=== PATIENT | male | born 1950 | race Caucasian/White ===

== ENCOUNTER 2016-09-18 16:14 | Inpatient (IN) | payer OTHER ==
[2016-09-18] MEDS ORDERED: ALBUTEROL NEBULIZED 2.5 MG/3 ML INHALATION STA (16:40)
[2016-09-18] MEDS ORDERED: methylPREDNISolone SOD SUCCI 125 MG/2 ML VIAL IV STA (16:40)
[2016-09-18] MEDS ORDERED: SODIUM CHLORIDE 0.9% 1,000 ML IV STA ×3 (16:40→20:23)
[2016-09-18] MEDS ORDERED: IBUPROFEN IV 600 MG in SODIUM CHLORIDE 0.9% 250 ML IV STA (16:41)
[2016-09-18] MEDS ORDERED: MORPHINE SULFATE 2 MG/ML SYRINGE IVP ONE (16:41)
--- NOTE | 2016-09-18 16:45 | ED ---
General Adult HPI - General Source: patient, family, RN notes reviewed Mode of arrival: wheelchair Limitations: no limitations <Cricket Ferro - Last Filed: 09/18/16 19:41> <Cricket Almeida - Last Filed: 09/18/16 20:56> - General Chief complaint: Shortness of Breath Stated complaint: RAMONE Time Seen by Provider: 09/18/16 16:15 - History of Present Illness Initial comments: This is a 65-year-old male who presents emergency department with past medical history significant for smoking. Patient has a possible history of COPD but he never follows up with the physician and states he has been given albuterol inhalers at home but when he runs out he never goes back gets more. Patient comes in today because he had difficulty breathing of the last few months and has been getting progressively worse. Patient states she is coughing so much lately and coughing up sputum that his ribs are hurting on both sides in the lower lateral aspect. Patient denies any fever or chills. Patient denies any anterior chest pain. Patient denies any palpitations. Patient states a few months ago he did cough up some blood but he hasn't coughed up any since. Patient denies any abdominal pain. Patient denies any nausea vomiting or diarrhea. Patient denies any recent injury or trauma. (Cricket Ferro) - Related Data Home Medications Medication Instructions Recorded Confirmed Albuterol Inhaler [Ventolin Hfa 2 puff INHALATION RT-Q4H PRN 09/18/16 09/18/16 Inhaler] Ipratropium [place] [Atrovent Hfa] 2 puff INHALATION RT-QID 09/18/16 09/18/16 Allergies Allergy/AdvReac Type Severity Reaction Status Date / Time No Known Allergies Allergy Verified 09/18/16 17:04 Review of Systems ROS Other: All systems not noted in ROS Statement are negative. <Cricket Ferro - Last Filed: 09/18/16 19:41> ROS Other: All systems not noted in ROS Statement are negative. <Cricket Almeida - Last Filed: 09/18/16 20:56> ROS Statement: Those systems with pertinent positive or pertinent negative responses have been documented in the HPI. Past Medical History Past Medical History: COPD History of Any Multi-Drug Resistant Organisms: None Reported Past Surgical History: No Surgical Hx Reported Past Anesthesia/Blood Transfusion Reactions: No Reported Reaction Past Psychological History: No Psychological Hx Reported Smoking Status: Current every day smoker Past Alcohol Use History: Daily Past Drug Use History: None Reported - Past Family History Father Family Medical History: Myocardial Infarction ([place]) <Cricket Ferro - Last Filed: 09/18/16 19:41> General Exam Limitations: no limitations <Cricket Ferro - Last Filed: 09/18/16 19:41> General appearance: alert, in no apparent distress, anxious Head exam: Present: atraumatic, normocephalic, normal inspection Eye exam: Present: normal appearance, PERRL, EOMI. Absent: scleral icterus, conjunctival injection, periorbital swelling ENT exam: Present: normal exam, mucous membranes moist Neck exam: Present: normal inspection. Absent: tenderness, meningismus, lymphadenopathy Respiratory exam: Present: normal lung sounds bilaterally, respiratory distress , decreased breath sounds. Absent: wheezes, rales, rhonchi, stridor Cardiovascular Exam: Present: regular rate, normal rhythm, normal heart sounds. Absent: systolic murmur, diastolic murmur, rubs, gallop, clicks GI/Abdominal exam: Present: soft, normal bowel sounds. Absent: distended, tenderness, guarding, rebound, rigid Extremities exam: Present: normal inspection, full ROM, normal capillary refill. Absent: tenderness, pedal edema, joint swelling, calf tenderness Back exam: Present: normal inspection Neurological exam: Present: alert, oriented X3, CN II-XII intact Psychiatric exam: Present: normal affect, normal mood Skin exam: Present: warm, dry, intact, normal color. Absent: rash <Cricket Almeida - Last Filed: 09/18/16 20:56> - General Exam Comments Initial Comments: GENERAL: Patient is well-developed and well-nourished. Patient is nontoxic and well- hydrated and is in mild distress. ENT: Neck is soft and supple. No significant lymphadenopathy is noted. Oropharynx is clear. Moist mucous membranes. Neck has full range of motion without eliciting any pain. EYES: The sclera were anicteric and conjunctiva were pink and moist. Extraocular movements were intact and pupils were equal round and reactive to light. Eyelids were unremarkable. PULMONARY: Diminished breath sounds throughout and wheezing throughout CARDIOVASCULAR: There is a regular rate and rhythm without any murmurs gallops or rubs. ABDOMEN: Soft and nontender with normal bowel sounds. No palpable organomegaly was noted. There is no palpable pulsatile mass. SKIN: Skin is clear with no lesions or rashes and otherwise unremarkable. NEUROLOGIC: Patient is alert and oriented x3. Cranial nerves II through XII are grossly intact. Motor and sensory are also intact. Normal speech, volume and content. Symmetrical smile. MUSCULOSKELETAL: Normal extremities with adequate strength and full range of motion. No lower extremity swelling or edema. No calf tenderness. LYMPHATICS: No significant lymphadenopathy is noted PSYCHIATRIC: Normal psychiatric evaluation. (Cricket Ferro) Course <Cricket Ferro - Last Filed: 09/18/16 19:41> <Cricket Almeida - Last Filed: 09/18/16 20:56> Vital Signs 09/18/16 09/18/16 09/18/16 16:17 16:59 17:06 Temperature 97.8 F Pulse Rate 105 H 90 Respiratory 24 28 H Rate Blood Pressure 115/73 O2 Sat by Pulse 89 L Oximetry 09/18/16 09/18/16 09/18/16 17:12 19:29 20:09 Temperature 97.8 F Pulse Rate 100 95 87 Respiratory 20 22 20 Rate Blood Pressure 131/89 110/66 101/67 O2 Sat by Pulse 94 L 96 Oximetry - Reevaluation(s) Reevaluation #1: 09/18/16 20:55 Patient with mild improvement of breathing treatments (Cricket Almeida) Medical Decision Making - Lab Data Result diagrams: 09/18/16 16:45 09/18/16 16:45 <Cricket Ferro - Last Filed: 09/18/16 19:41> - Lab Data Result diagrams: 09/18/16 16:45 09/18/16 16:45 <Cricket Almeida - Last Filed: 09/18/16 20:56> - Medical Decision Making EKG shows normal sinus rhythm at 93 bpm WA interval is on a 54 QRS is 104 QT interval 368 QTC is 457 per patient's EKG shows no ST segment elevation or depression or T wave abnormalities are noted. Dr. Almeida date of the care of this patient at 7:30. (Cricket Ferro) 60 formality ER for evaluation, patient coming in with shortness of breath, patient found a fungal pneumonia with cavitary lesion, which she has not antibiotics with antifungal, patient will be admitted for further evaluation and treatment of cardio stress test. Patient hypoxic improvement with breathing treatments. (Cricket Almeida) - Lab Data Lab Results 09/18/16 09/18/16 09/18/16 Range/Units 16:45 16:45 16:45 WBC 11.5 H (3.8-10.6) k/uL RBC 5.41 (4.30-5.90) m/uL Hgb 17.2 (13.0-17.5) gm/dL Hct 49.4 (39.0-53.0) % MCV 91.3 (80.0-100.0) fL MCH 31.7 (25.0-35.0) pg MCHC 34.7 (31.0-37.0) g/dL RDW 13.0 (11.5-15.5) % Plt Count 281 (150-450) k/uL Neutrophils % 82 % Lymphocytes % 10 % Monocytes % 7 % Eosinophils % 1 % Basophils % 1 % Neutrophils # 9.4 H (1.3-7.7) k/uL Lymphocytes # 1.1 (1.0-4.8) k/uL Monocytes # 0.8 (0-1.0) k/uL Eosinophils # 0.1 (0-0.7) k/uL Basophils # 0.1 (0-0.2) k/uL PT (9.0-12.0) sec INR (<1.1) APTT (22.0-30.0) sec D-Dimer (<0.60) mg/L FEU Sodium 131 L (137-145) mmol/L Potassium 4.5 (3.5-5.1) mmol/L Chloride 91 L (98-107) mmol/L Carbon Dioxide 25 (22-30) mmol/L Anion Gap 15 mmol/L BUN 5 L (9-20) mg/dL Creatinine 0.50 L (0.66-1.25) mg/dL Est GFR (MDRD) Af Amer >60 (>60 ml/min/1.73 sqM) Est GFR (MDRD) Non-Af >60 (>60 ml/min/1.73 sqM) Glucose 118 H (74-99) mg/dL Plasma Lactic Acid Gurpreet (0.7-2.0) mmol/L Calcium 9.5 (8.4-10.2) mg/dL Magnesium 1.9 (1.6-2.3) mg/dL Total Bilirubin 1.0 (0.2-1.3) mg/dL AST 38 (17-59) U/L ALT 33 (21-72) U/L Alkaline Phosphatase 170 H (38-126) U/L Total Creatine Kinase 82 (55-170) U/L CK-MB (CK-2) 6.8 H* (0.0-2.4) ng/mL CK-MB (CK-2) Rel Index 8.3 Troponin I <0.012 (0.000-0.034) ng/mL NT-Pro-B Natriuret Pep pg/mL Total Protein 7.8 (6.3-8.2) g/dL Albumin 3.7 (3.5-5.0) g/dL 09/18/16 09/18/16 09/18/16 Range/Units 16:45 16:45 16:45 WBC (3.8-10.6) k/uL RBC (4.30-5.90) m/uL Hgb (13.0-17.5) gm/dL Hct (39.0-53.0) % MCV (80.0-100.0) fL MCH (25.0-35.0) pg MCHC (31.0-37.0) g/dL RDW (11.5-15.5) % Plt Count (150-450) k/uL Neutrophils % % Lymphocytes % % Monocytes % % Eosinophils % % Basophils % % Neutrophils # (1.3-7.7) k/uL Lymphocytes # (1.0-4.8) k/uL Monocytes # (0-1.0) k/uL Eosinophils # (0-0.7) k/uL Basophils # (0-0.2) k/uL PT 11.7 (9.0-12.0) sec INR 1.2 (<1.1) APTT 25.8 (22.0-30.0) sec D-Dimer 5.10 H (<0.60) mg/L FEU Sodium (137-145) mmol/L Potassium (3.5-5.1) mmol/L Chloride (98-107) mmol/L Carbon Dioxide (22-30) mmol/L Anion Gap mmol/L BUN (9-20) mg/dL Creatinine (0.66-1.25) mg/dL Est GFR (MDRD) Af Amer (>60 ml/min/1.73 sqM) Est GFR (MDRD) Non-Af (>60 ml/min/1.73 sqM) Glucose (74-99) mg/dL Plasma Lactic Acid Gurpreet 2.1 H (0.7-2.0) mmol/L Calcium (8.4-10.2) mg/dL Magnesium (1.6-2.3) mg/dL Total Bilirubin (0.2-1.3) mg/dL AST (17-59) U/L ALT (21-72) U/L Alkaline Phosphatase (38-126) U/L Total Creatine Kinase (55-170) U/L CK-MB (CK-2) (0.0-2.4) ng/mL CK-MB (CK-2) Rel Index Troponin I (0.000-0.034) ng/mL NT-Pro-B Natriuret Pep 391 pg/mL Total Protein (6.3-8.2) g/dL Albumin (3.5-5.0) g/dL Critical Care Time Critical Care Time: Yes Total Critical Care Time: 31 <Cricket Almeida - Last Filed: 09/18/16 20:56> Disposition <Cricket Ferro - Last Filed: 09/18/16 19:41> <Cricket Almeida - Last Filed: 09/18/16 20:56> Clinical Impression: COPD (chronic obstructive pulmonary disease), Acute exacerbation of chronic obstructive airways disease, Fungal pneumonia, Cavitary pneumonia, Bilateral pleural effusion, Hypoxia Disposition: ADMITTED IP TO THIS HOSP Condition: Serious Referrals: None,Stated [Primary Care Provider] - 1-2 days
[2016-09-18 17:10] LABS: Basophils # (A) 0.1 k/uL (0-0.2); Basophils % (A) 1 %; CH 32.6; CHCM 35.9; Eosinophils # (A) 0.1 k/uL (0-0.7); Eosinophils % (A) 1 %; HCT 49.4 % (39.0-53.0); HDW 2.79; HGB 17.2 gm/dL (13.0-17.5); Luc # (Auto) 0.09; Luc % (Auto) 1; Lymphocytes # (A) 1.1 k/uL (1.0-4.8); Lymphocytes % (A) 10 %; MCH 31.7 pg (25.0-35.0); MCHC 34.7 g/dL (31.0-37.0); MCV 91.3 fL (80.0-100.0); Mean Platelet Volume 7.8; Monocytes # (A) 0.8 k/uL (0-1.0); Monocytes % (A) 7 %; Neutrophils # (A) 9.4 k/uL (1.3-7.7); Neutrophils % (A) 82 %; RBC 5.41 m/uL (4.30-5.90); WBC 11.5 k/uL (3.8-10.6); WBC (Perox) 12.04
[2016-09-18 17:28] LABS: ALT 33 U/L (21-72); AST 38 U/L (17-59); Alkaline Phosphatase 170 U/L (38-126); Anion Gap 15 mmol/L; Blood Urea Nitrogen 5 mg/dL (9-20); Calcium 9.5 mg/dL (8.4-10.2); Carbon Dioxide 25 mmol/L (22-30); Chloride 91 mmol/L (98-107); Glucose 118 mg/dL (74-99); INR 1.2 (<1.1); Magnesium 1.9 mg/dL (1.6-2.3); Non-African American GFR(MDRD) >60 (>60 ml/min/1.73 sqM); Partial Thromboplastin Time 25.8 sec (22.0-30.0); Potassium 4.5 mmol/L (3.5-5.1); Prothrombin Time 11.7 sec (9.0-12.0); Sodium 131 mmol/L (137-145); Total Protein 7.8 g/dL (6.3-8.2)
[2016-09-18 17:31] LABS: Creatine Kinase 82 U/L (55-170)
[2016-09-18 17:44] LABS: Troponin I <0.012 ng/mL (0.000-0.034)
[2016-09-18 17:47] LABS: Creatine Kinase MB 6.8 ng/mL (0.0-2.4)
[2016-09-18] MEDS ORDERED: RX INFO: IV CONTRAST WAS GIVEN 1 EACH MISC MISCELLANE PRN (18:29)
--- NOTE | 2016-09-18 18:42 | XR ---
EXAMINATION TYPE: XR chest 2V DATE OF EXAM: 09/18/2016 6:22 PM COMPARISON: May 13, 2014 HISTORY: Increasing dyspnea for the past month with history COPD TECHNIQUE: Frontal and lateral views of the chest are obtained. FINDINGS: There is heterogeneous hyperinflation, marked in degree. The lateral view shows evidence of a mass injecting anteriorly. On the frontal view laterally in the upper lung zone there is focal pleural thickening with streaking of density toward the right suprahilar position. In addition, the right hemidiaphragm is prominently elevated. All these changes are new since the prior study. IMPRESSION: MULTIFOCAL PLEURAL PARENCHYMAL ABNORMALITIES FOR WHICH FURTHER CATHETERIZATION WITH CT IS RECOMMENDED.
--- NOTE | 2016-09-18 20:11 | CT ---
EXAMINATION TYPE: CT chest angio for PE DATE OF EXAM: 09/18/2016 7:21 PM COMPARISON: CT July 18, 2015 HISTORY: Difficulty breathing. CT DLP: 697.00 mGycm.Automated exposure control for dose reduction was used. CONTRAST: CT Chest for pulmonary embolism performed with with IV Contrast, patient injected with 76 m L of Omnipaque 350. FINDINGS: Right: The hernández finding is a large right pleural effusion which appears to exert mass effect upon the right lung base. There is associated atelectasis of the right middle lobe and most of the right lower lobe. Within the right upper lobe is a 4 cm rounded cavitary lesion posteriorly, with a 2.5 cm depen dent soft tissue ovoid ball. There are baseline bulla and bleb formation, and widespread hyperinflati on, consistent with chronic obstructive pulmonary disease. Left: On the left there is a smaller pleural effusion which also appears to be exerting mass effect u linda the left lung base. There is dense consolidation throughout the posterior lateral left lower lobe . There is partial atelectasis and partial consolidation within anterior left upper lobe. There are b aseline bulla and bleb formation, and widespread hyperinflation, consistent with chronic obstructive pulmonary disease. Mediastinum: There is no pulmonary embolism. The pulmonary arterial tree is well opacified and widely patent. The thoracic aorta is unremarkable. There is no pericardial effusion. No cardiomegaly. The airways are clear. There are no focal skeletal lesions, and th visualized subdiaphragmatic structures are unremarkable. IMPRESSION: 1. BILATERAL PROMINENT PLEURAL EFFUSIONS, MUCH GREATER ON THE RIGHT, WITH LEFT LOWER LOBE CONSOLIDATI ON AND RIGHT LOWER LOBE, RIGHT MIDDLE LOBE AND LEFT UPPER LOBE ATELECTASIS. 2. RIGHT UPPER LOBE CAVITARY LESION WITH DEPENDENT NODULE, SUGGESTS FUNGAL ETIOLOGY.
[2016-09-18] MEDS ORDERED: IV VANCOMYCIN PER PHARMACY 1 EACH MISC MISCELLANE PRN (20:23)
[2016-09-18] MEDS ORDERED: SODIUM CHLORIDE 0.9% 500 ML IV STA (20:23)
[2016-09-18] MEDS ORDERED: PIPERACILLIN-TAZOBACTAM 3.375 GM in DEXTROSE/WATER 1 50ML.BAG IVPB STA (20:23)
[2016-09-18] MEDS ORDERED: VANCOMYCIN 1,500 MG in SODIUM CHLORIDE 0.9% 250 ML IVPB STA (20:24)
[2016-09-18] MEDS ORDERED: IPRATROPIUM-ALBUTEROL 3 ML NEB INHALATION STA (20:55)
[2016-09-18] MEDS ORDERED: PNEUMONIA PROTOCOL UTILIZED 1 EACH MISC PO PRN (20:57)
[2016-09-19] MEDS: SODIUM CHLORIDE 0.9% 1,000 ML IV SCH ×5 (02:13→17:27)
[2016-09-19 02:43] LABS: Glucose,Whole Blood 182 mg/dL (75-99)
[2016-09-19] MEDS: LEVOFLOXACIN 750MG-D5W PMX 750 MG in DEXTROSE/WATER 1 150ML.BAG IVPB SCH (02:55)
[2016-09-19 04:35] LABS: Basophils % (A) 0 %; CH 32.5; CHCM 34.8; Eosinophils % (A) 0 %; HCT 40.4 % (39.0-53.0); HDW 2.77; Luc # (Auto) 0.04; Luc % (Auto) 1; Lymphocytes # (A) 0.5 k/uL (1.0-4.8); Lymphocytes % (A) 7 %; MCH 31.5 pg (25.0-35.0); MCHC 33.5 g/dL (31.0-37.0); Mean Platelet Volume 7.7; Monocytes # (A) 0.3 k/uL (0-1.0); Monocytes % (A) 4 %; Neutrophils # (A) 6.5 k/uL (1.3-7.7); Neutrophils % (A) 88 %; RDW 13.3 % (11.5-15.5); WBC 7.4 k/uL (3.8-10.6); WBC (Perox) 7.54
[2016-09-19 04:47] LABS: Anion Gap 11 mmol/L; Blood Urea Nitrogen 10 mg/dL (9-20); Calcium 8.5 mg/dL (8.4-10.2); Carbon Dioxide 22 mmol/L (22-30); Chloride 97 mmol/L (98-107); Glucose 176 mg/dL (74-99); Magnesium 1.8 mg/dL (1.6-2.3); Non-African American GFR(MDRD) >60 (>60 ml/min/1.73 sqM); Phosphorous 3.2 mg/dL (2.5-4.5); Potassium 4.2 mmol/L (3.5-5.1); Sodium 130 mmol/L (137-145)
[2016-09-19 05:06] LABS: HGB 13.5 gm/dL (13.0-17.5)
[2016-09-19] MEDS: VANCOMYCIN 1,500 MG in SODIUM CHLORIDE 0.9% 250 ML IVPB SCH ×2 (06:51→22:21)
--- NOTE | 2016-09-19 07:29 | XR ---
EXAMINATION TYPE: XR chest 1V DATE OF EXAM: 09/19/2016 6:29 AM COMPARISON: 09/18/2016 HISTORY: 65-year-old male pneumonia TECHNIQUE: Single frontal view of the chest is obtained. FINDINGS: Right heart margin remains obscured by adjacent pleural-parenchymal disease. There is dense opacifica tion on the right extending up to the midlung level with a pleural-parenchymal density at the periphe ral right upper lobe and cavitary changes and suggestion of a soft tissue nodule within the cavity as described on CT of 09/18/2016. Patchy opacity is seen throughout the mid and lower left lung with a p rominent left basilar opacity. IMPRESSION: 1. Extensive changes throughout the lungs are overall stable from 09/18/2016 with a moderate right and small left pleural effusions, 2. Mid and lower lung consolidation and atelectasis on both sides and right upper lobe cavitary feliz e. Atypical fungal and mycobacterial infections as well as septic emboli are in the differential. 3. 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
[2016-09-19] MEDS: PIPERACILLIN-TAZOBACTAM 3.375 GM in DEXTROSE/WATER 1 50ML.BAG IVPB SCH ×3 (08:51→23:46)
[2016-09-19] MEDS: ENOXAPARIN 40 MG/0.4 ML SYRINGE SQ SCH (08:57)
[2016-09-19] MEDS: FAMOTIDINE 20 MG/2 ML VIAL IV SCH ×2 (15:16→21:41)
[2016-09-19] MEDS: methylPREDNISolone SOD SUCCI 40 MG/ML 1 ML VIAL IV SCH ×2 (15:16→23:46)
--- NOTE | 2016-09-19 15:28 | P.CONS ---
History of Present Illness - Reason for Consult Consult date: 09/19/16 Fungal pneumonia - History of Present Illness This is a 65-year-old male. He has a past medical history of COPD. He gives history of being shortness of breath for a couple of months with occasional chills. He states he had a few drops of blood in his sputum initially but that went away. He has had weight loss of 20 pounds with loss of appetite, generalized weakness and fatigue and generalized malaise. He did not seek any treatment until he came into the ER on September 18. Chest x-ray showed multifocal pleural parenchyma. He underwent a CAT scan of the chest that showed bilateral prominence with pleural effusion greater on the right with left lower lobe consolidation and right lower lobe, right middle lobe, left upper lobe atelectasis. Right upper lobe cavitary lesion with dependent nodules suggest fungal. His pulse ox initially was 89% he has been afebrile. White count was 11.5 and improved to 7.5. D-dimer was elevated at 5.1. GFR greater than 60. Lactic acid initially 2.1 followed by 4.64. Albumin 3.7. Troponin 0.012. Patient was admitted to the intensive care unit and consult requested with pulmonary medicine as well. Patient does have history of smoking for 40+ years at least 1 pack per day or more. He also has history of alcohol abuse with 4-5 beers per day but recently had to cut back as he has not been feeling well and is now drinking one can per day. He does have service in [place] but was not exposed to agent orange. He denies any recent travel. He is currently living alone. 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 He knows there are mice in his home. Review of Systems All systems: negative Constitutional: Reports anorexia, Reports chills, Reports fatigue, Reports fever , Reports lethargy, Reports malaise, Reports poor appetite, Reports sweats, Reports weakness, Reports weight loss Eyes: denies blurred vision, denies pain Ears, nose, mouth and throat: Denies headache, Denies sore throat Cardiovascular: Denies chest pain, Denies shortness of breath Respiratory: Reports cough, Reports cough with sputum, Reports dyspnea, Reports hemoptysis, Reports wheezing, Denies home oxygen Gastrointestinal: Denies abdominal pain, Denies diarrhea, Denies nausea, Denies vomiting Musculoskeletal: Denies myalgias Integumentary: Denies pruritus, Denies rash Neurological: Denies numbness, Denies weakness Psychiatric: Denies anxiety, Denies depression Endocrine: Denies fatigue, Denies weight change Past Medical History Past Medical History: COPD History of Any Multi-Drug Resistant Organisms: None Reported Past Surgical History: No Surgical Hx Reported Past Anesthesia/Blood Transfusion Reactions: No Reported Reaction Past Psychological History: No Psychological Hx Reported Smoking Status: Current every day smoker Past Alcohol Use History: Daily Additional Past Alcohol Use History / Comment(s): Patient is a smoker of greater than 1 pack per day for 40 years. He denies any medical marijuana, marijuana or street drug use. He does admit that he drinks beer on a regular basis and normally has 4-5 cans per day which she has been decreased to 1 can per day due to illness. He served in the [employer] during the [place] war and was stationed in [place]. He denies any exposure to agent orange. He denies any recent travel. There are no pets in the home. He is living at home alone. 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 He does know there are mice in his home. Past Drug Use History: None Reported - Past Family History Father Family Medical History: Myocardial Infarction ([place]) Medications and Allergies Home Medications Medication Instructions Recorded Confirmed Type Albuterol Inhaler [Ventolin Hfa 2 puff INHALATION RT-Q4H PRN 09/18/16 09/18/16 History Inhaler] Ipratropium [place] [Atrovent Hfa] 2 puff INHALATION RT-QID 09/18/16 09/18/16 History Allergies Allergy/AdvReac Type Severity Reaction Status Date / Time No Known Allergies Allergy Verified 09/18/16 17:04 Physical Exam Vitals: Vital Signs Temp Pulse Resp BP Pulse Ox 09/19/16 09:00 75 21 119/68 95 09/19/16 08:00 98.8 F 95 22 101/60 93 L 09/19/16 07:00 69 13 108/64 94 L 09/19/16 06:00 79 27 H 98/60 94 L 09/19/16 05:00 69 17 94/59 94 L 09/19/16 04:00 67 16 95/46 96 09/19/16 03:00 97.9 F 81 25 H 119/67 93 L 09/19/16 02:05 82 20 101/57 97 09/18/16 22:12 98 22 125/71 97 09/18/16 21:32 82 09/18/16 21:18 82 Intake and Output 09/18/16 09/19/16 09/19/16 22:59 06:59 14:59 Intake Total 1000 535 Output Total 500 Balance 500 535 Intake: IV 700 0 Levofloxacin 750Mg-D5w 150 Pmx 750 mg In Dextrose/ Water 1 150ml.bag @ 100 mls/hr IVPB Q24H JANEY Rx#: [id number] Sodium Chloride 0.9% 1, 300 0 000 ml @ 100 mls/hr IV . Q10H JANEY Rx#:[id number] Vancomycin 1,500 mg In 250 Sodium Chloride 0.9% 250 ml @ 125 mls/hr IVPB ONCE STA Rx#:[id number] Intake, IV Titration 250 Amount Vancomycin 1,500 mg In 250 Sodium Chloride 0.9% 250 ml @ 125 mls/hr IVPB Q12H AJNEY Rx#:[id number] Oral 300 285 Output: Urine 500 Other: Voiding Method Urinal Weight 73 kg Gen: This is a thin 65-year-old male. There is mild to moderate accessory muscle usage. HEENT: Head is atraumatic, normocephalic. Pupils equal, round. Sclerae is anicteric. Oral mucous membranes are dry. Dentition is in poor order and patient has only a few teeth left. No thrush noted. NECK: Supple. No JVD. No lymphadenopathy. No thyromegaly. LUNGS: Coarse crackles throughout with occasional scattered expiratory wheeze. Moderate intercostal retractions. Patient has increased dyspnea with minimal exertion. HEART: Regular rate and rhythm. No murmur. ABDOMEN: Soft. Bowel sounds are present. No masses. No tenderness. EXTREMITIES: No pedal edema. No calf tenderness. Dorsalis pedis +2 bilaterally. NEUROLOGICAL: Patient is awake, alert and oriented x3. Cranial nerves 2 through 12 are grossly intact. Results Results: Laboratory Results WBC 7.4 k/uL (3.8-10.6) 09/19/16 04:12 RBC 4.30 m/uL (4.30-5.90) 09/19/16 04:12 Hgb 13.5 gm/dL (13.0-17.5) D 09/19/16 04:12 Hct 40.4 % (39.0-53.0) 09/19/16 04:12 MCV 94.0 fL (80.0-100.0) 09/19/16 04:12 MCH 31.5 pg (25.0-35.0) 09/19/16 04:12 MCHC 33.5 g/dL (31.0-37.0) 09/19/16 04:12 RDW 13.3 % (11.5-15.5) 09/19/16 04:12 Plt Count 190 k/uL (150-450) 09/19/16 04:12 Neutrophils % 88 % 09/19/16 04:12 Lymphocytes % 7 % 09/19/16 04:12 Monocytes % 4 % 09/19/16 04:12 Eosinophils % 0 % 09/19/16 04:12 Basophils % 0 % 09/19/16 04:12 Neutrophils # 6.5 k/uL (1.3-7.7) 09/19/16 04:12 Lymphocytes # 0.5 k/uL (1.0-4.8) L 09/19/16 04:12 Monocytes # 0.3 k/uL (0-1.0) 09/19/16 04:12 Eosinophils # 0.0 k/uL (0-0.7) 09/19/16 04:12 Basophils # 0.0 k/uL (0-0.2) 09/19/16 04:12 PT 11.7 sec (9.0-12.0) 09/18/16 16:45 INR 1.2 (<1.1) 09/18/16 16:45 APTT 25.8 sec (22.0-30.0) 09/18/16 16:45 D-Dimer 5.10 mg/L FEU (<0.60) H 09/18/16 16:45 Sodium 130 mmol/L (137-145) L 09/19/16 04:12 Potassium 4.2 mmol/L (3.5-5.1) 09/19/16 04:12 Chloride 97 mmol/L (98-107) L 09/19/16 04:12 Carbon Dioxide 22 mmol/L (22-30) 09/19/16 04:12 Anion Gap 11 mmol/L 09/19/16 04:12 BUN 10 mg/dL (9-20) 09/19/16 04:12 Creatinine 0.50 mg/dL (0.66-1.25) L 09/19/16 04:12 Est GFR (MDRD) Af Amer >60 (>60 ml/min/1.73 sqM) 09/19/16 04:12 Est GFR (MDRD) Non-Af >60 (>60 ml/min/1.73 sqM) 09/19/16 04:12 Glucose 176 mg/dL (74-99) H 09/19/16 04:12 POC Glucose (mg/dL) 182 mg/dL (75-99) H 09/19/16 02:37 POC Glu Industrial [employer]st ID [employer] Brown 09/19/16 02:37 Plasma Lactic Acid Gurpreet 3.4 mmol/L (0.7-2.0) H* 09/19/16 04:12 Calcium 8.5 mg/dL (8.4-10.2) 09/19/16 04:12 Phosphorus 3.2 mg/dL (2.5-4.5) 09/19/16 04:12 Magnesium 1.8 mg/dL (1.6-2.3) 09/19/16 04:12 Total Bilirubin 1.0 mg/dL (0.2-1.3) 09/18/16 16:45 AST 38 U/L (17-59) 09/18/16 16:45 ALT 33 U/L (21-72) 09/18/16 16:45 Alkaline Phosphatase 170 U/L (38-126) H 09/18/16 16:45 Total Creatine Kinase 82 U/L (55-170) 09/18/16 16:45 CK-MB (CK-2) 6.8 ng/mL (0.0-2.4) H* 09/18/16 16:45 CK-MB (CK-2) Rel Index 8.3 09/18/16 16:45 Troponin I <0.012 ng/mL (0.000-0.034) 09/18/16 16:45 NT-Pro-B Natriuret Pep 391 pg/mL 09/18/16 16:45 Total Protein 7.8 g/dL (6.3-8.2) 09/18/16 16:45 Albumin 3.7 g/dL (3.5-5.0) 09/18/16 16:45 CBC & Chem 7: 09/19/16 04:12 09/19/16 04:12 Labs: Abnormal Lab Results - Last 24 Hours (Table) 09/19/16 09/19/16 09/19/16 Range/Units 00:15 02:37 04:12 Lymphocytes # (1.0-4.8) k/uL Sodium (137-145) mmol/L Chloride (98-107) mmol/L Creatinine (0.66-1.25) mg/dL Glucose (74-99) mg/dL POC Glucose (mg/dL) 182 H (75-99) mg/dL Plasma Lactic Acid Gurpreet 4.6 H* 3.4 H* (0.7-2.0) mmol/L 09/19/16 09/19/16 Range/Units 04:12 04:12 Lymphocytes # 0.5 L (1.0-4.8) k/uL Sodium 130 L (137-145) mmol/L Chloride 97 L (98-107) mmol/L Creatinine 0.50 L (0.66-1.25) mg/dL Glucose 176 H (74-99) mg/dL POC Glucose (mg/dL) (75-99) mg/dL Plasma Lactic Acid Grupreet (0.7-2.0) mmol/L Assessment and Plan Plan: This is a 65-year-old male who presents to Hospital with acute hypoxic respiratory failure with significantly abnormal CAT scan for which fungal infection is suspected as well as possible aspiration pneumonia, gram- negative pneumonia with underlying COPD. He is currently on Levaquin and Zosyn which will be continued. Antifungal medication will be addressed. Continue supportive care. Further recommendations as patient progresses. The above dictated assessment and findings were discussed with Dr. Ricci. The impression and plan of care have been directed as dictated. Vilma Cordova nurse practitioner acting as scribe for Dr. Ricci. Time with Patient: Greater than 30
--- NOTE | 2016-09-19 15:29 | HP ---
DATE OF ADMISSION: 09/18/2016 Patient is a 65-year-old gentleman follows with Dr. Yenifer Phipps from pulmonology came in with complaints of shortness of breath, has going on for about a few weeks and patient was having severe cough and the patient shortness of breath has worsened. Patient does have a history of COPD and patient denied any fever, chills. On admission, patient had leukocytosis and patient had an elevated d-dimer because of which patient underwent a CT of the chest which showed significant emphysematous changes in the lungs along with cavitary lesion in the right upper lobe along with bilateral pneumonic process with some atelectasis in both lungs and the patient is presently on 6 L of oxygen, does not use any oxygen at home. Patient is able to cough, coughing up yellowish phlegm. Patient denied any dysuria. Denied any nausea or vomiting. Patient was started on multiple antibiotics including antifungals. Infectious disease and nurse practitioner already evaluated the patient, I will left infectious disease manage his antibiotics and I will leave the decision of ( ) isolation to the family. Patient is unable to provide much of the history to me. I am not sure, I did not get the history whether he has ever been incarcerated in the past. The patient appears to have had significant weight loss. Patient denied any night sweats. Patient denied any diarrhea. REVIEW OF SYSTEMS: CONSTITUTIONAL: No fever, no malaise, no fatigue. HEENT: No recent visual problems or hearing problems. Denied any sore throat. CARDIOVASCULAR: No chest pain, orthopnea, PND, no palpitations, no syncope. PULMONARY: As described in history of present illness. GASTROINTESTINAL: No diarrhea, no nausea, no vomiting, no abdominal pain. Normoactive bowel sounds. NEUROLOGICAL: No headaches, no weakness, no numbness. HEMATOLOGICAL: Denies any bleeding or petechiae. GENITOURINARY: Denies any burning micturition, frequency, or urgency. MUSCULOSKELETAL/RHEUMATOLOGICAL: Denies any joint pain, swelling, or any muscle pain. ENDOCRINE: Denies any polyuria or polydipsia. The rest of the 14 point review of systems is negative. Home medications include: 1. Albuterol. 2. Ipratropium. ALLERGIES: No known drug allergies. Past medical history is significant for: COPD. Patient continues to smoke, patient continues to smoke more than a pack a day. Denied any alcohol abuse or drug abuse. FAMILY HISTORY: Significant for myocardial infarction in the family. In spite of extensive counseling by his manager of internal to quit smoking, patient continues to smoke. PHYSICAL EXAMINATION: GENERAL: The patient is alert and oriented x3, not in any acute distress. Well developed, well nourished. HEENT: Pupils are round and equally reacting to light. EOMI. No scleral icterus. No conjunctival pallor. Normocephalic, atraumatic. No pharyngeal erythema. No thyromegaly. CARDIOVASCULAR: S1 and S2 present. No murmurs, rubs, or gallops. PULMONARY: Patient is thin built and not using any ( ) of breathing on 6 liters of oxygen, but patient has significantly limited air entry into bilateral lung coombs. No wheezing. Very minimal expiratory wheezes were appreciated. ABDOMEN: Soft, nontender, nondistended, normoactive bowel sounds. No palpable organomegaly. MUSCULOSKELETAL: No joint swelling or deformity. EXTREMITIES: No cyanosis, clubbing, or pedal edema. NEUROLOGICAL: Gross neurological examination did not reveal any focal deficits. SKIN: No rashes. LABORATORY DATA: CBC, CMP are abnormal for elevated WBC count of 11,500, sodium of 130 and patient is getting normal saline at this point of time which will be continued. Lactic acid on admission was 2.1 now 3.4. Patient is getting IV fluids at 100 mL which I will increase to 150 mL per hour. Chest CT as mentioned above. I do not believe x-ray as I already dictated the chest CT results probably do not need to worry about x-ray results. ASSESSMENT AND PLAN: 1. Severe sepsis secondary to bilateral pneumonia, patient is on multiple broad-spectrum antibiotics, including levofloxacin, Zosyn and vancomycin ( ) including antifungal or Conazol. I will let infectious disease decide about the antibiotics. Sputum cultures will be obtained. 2. Acute hypercapnic as well as hypoxic respiratory failure secondary to pneumonia and chronic obstructive pulmonary disease exacerbation. 3. Extensive emphysema. 4. Cavitary lesion in the right upper lobe most probably need AFB isolation and sputum AFB testing. That decision will be left to infectious disease. Pulmonology was consulted as well. 5. Elevated d-dimer which is a nonspecific test. 6. Hypovolemic hyponatremia expected to improve with normal saline. 7. Lactic acidosis secondary to severe sepsis, expected to improve with IV fluids. 8. Continued nicotine use. Counseling was provided. Spent about 60 minutes of critical care time in managing the patient.
[2016-09-19] MEDS: IPRATROPIUM-ALBUTEROL 3 ML NEB INHALATION PRN ×2 (15:54→21:15)
[2016-09-19] MEDS ORDERED: THIAMINE 100 MG/ML 2 ML VIAL IM STA (17:12)
[2016-09-19] MEDS ORDERED: LORazepam 2 MG/ML SYRINGE IV PRN ×3 (17:12)
--- NOTE | 2016-09-19 18:26 | CONS ---
DATE OF CONSULTATION: REASON FOR CONSULTATION: Pneumonia hypoxic respiratory failure. HISTORY OF PRESENTING ILLNESS: Mr. Casey Jacobsen is a 65-year-old male who was seen, evaluated, examined in the ICU. This patient has been admitted to hospital with shortness of breath, cough and not feeling well. Patient presented into the emergency department where he was seen, evaluated, examined. Patient is overall a poor historian and it is not clear if patient sees primary care provider. Review of the data revealed that patient has seen Dr. Phipps in the past. This patient is seen, evaluated, examined while covering for Dr. Jimenez/Dr. Yenifer Phipps. Patient has ongoing history of shortness of breath for several months duration, has been having chest pain as well, predominantly on the right side and some on the left side as well. He has been more short of breath than usual. Patient has noted occasional streaks of blood as well, some time ago but not recently. With those problems, patient presented into the emergency department was seen, evaluated, examined and has been admitted to the hospital into the ICU where he was seen, evaluated, examined. Patient also describes weight loss of about close to 20 pounds. The patient appeared very dehydrated and septic related to pneumonia, he has been admitted to the ICU. Also underwent a CT scan of the chest, which I have reviewed. The patient is being evaluated by infectious disease services as well. Past medical history significant for severe chronic obstructive pulmonary disease, emphysema. PAST SURGICAL HISTORY: Unremarkable and noncontributory. FAMILY HISTORY AND SOCIAL HISTORY: Smoking about 1 to 2 packs per day for 40 years. Consumption of alcohol about 4 to 5 cans on a daily basis. Details about family history is not available. Medications at home include: 1. Ventolin HFA 2 puffs 4 times a day as needed. 2. Ipratropium MDI 2 puffs 4 times a day. Current medications initiated in the hospital include: 1. DuoNebs unit dose updraft 4 times a day. 2. Lovenox 40 mg daily. 3. Pepcid 20 mg q.12. 4. Sliding scale insulin. 5. Levaquin 750 mg daily. 6. Ativan as needed. 7. Lorazepam. 8. On Solu-Medrol 40 q.8. 9. Sliding scale insulin. 10. Protonix 40 mg daily. 11. Vanco and Zosyn. 12. Also on thiamine as well. On examination, his most recent vitals include blood pressure is 150/66 respiratory rate 20, pulse 80, temperature 98, saturation 95% on 5 liters oxygen. HEENT EXAMINATION: Otherwise atraumatic, normocephalic. Pharynx clear. Narrow pharyngeal opening is present. NECK: Supple without any lymphadenopathy, jugular venous distention, neck veins are prominent. LUNGS: Bilateral coarse inspiratory, expiratory breath sounds are present. HEART: Regular rate and rhythm. S1 and S2 audible. ABDOMEN: Soft. No rebound or rigidity. EXTREMITIES: +1 peripheral pulses. NEUROLOGICAL EXAMINATION: Otherwise, awake and alert. Sputum studies revealed WBC, RBCs and epithelial cells. Laboratory data reviewed. White cell count 11,500, hemoglobin 17 and hematocrit 49, platelets 281,000, white cell count 7400, ( ) hemoglobin 13, hematocrit 40, platelet count of 190,000. PT, INR is 11.7 and 1.2. D-dimer is 5.1. Sodium 131, potassium 4.5. BUN and creatinine are 5 and 0.5. Glucose 118, lactic acid is 2.1, went up to 4.6 now coming down, is 3.4. CK-MB 6.8. Glucose is 182. EKG performed in the emergency department reviewed revealed normal sinus rhythm, incomplete right bundle branch block with anterior septal changes. 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 Extensive bullous disease and bleb formation is seen as well. A small left pleural effusion is seen with dense consolidation on the left lower lobe and atelectasis. IMPRESSION: 1. Acute hypoxic respiratory failure related to end-stage lung disease, severe chronic obstructive pulmonary disease, emphysema as well as superimposed bilateral pneumonia. 2. Bilateral pneumonia with parapneumonic effusion on the right side. 3. Dense consolidation bilaterally in the lower lobes with small to moderate right-sided pleural effusion. 4. 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 PLAN AND RECOMMENDATIONS: Includes fluid resuscitation, which is being done. We will cut down the amount of IV fluids. Continue antibiotics, steroids and breathing treatments. Pardeep with very broad-spectrum antibiotics. The patient will likely need a bronchoscopy. Given that patient has been followed by Dr. Yenifer Phipps, would recommend to the patient to be followed up by him. Further recommendations pending.
[2016-09-19 21:34] LABS: Glucose,Whole Blood 89 mg/dL (75-99)
[2016-09-19] MEDS: INSULIN LISPRO (humaLOG) 300 UNIT/3 ML VIAL SQ SCH (21:40)
[2016-09-19 21:51] LABS: Hemoglobin A1C 5.7 % (4.2-6.1)
[2016-09-19] MEDS: VORICONAZOLE IVPB SCH ×2 (22:19→22:20)
[2016-09-19] MEDS: SODIUM CHLORIDE 0.9% IVPB SCH ×2 (22:19→22:20)
--- NOTE | 2016-09-19 22:34 | P.CON ---
Consult Note - . Consult date: 09/19/16 Assessment/Plan:: This is a 65-year-old male. He has a past medical history of COPD. He gives history of being shortness of breath for a couple of months with occasional chills. He states he had a few drops of blood in his sputum initially but that went away. He has had weight loss of 20 pounds with loss of appetite, generalized weakness and fatigue and generalized malaise. He did not seek any treatment until he came into the ER on September 18. Chest x-ray showed multifocal pleural parenchyma. He underwent a CAT scan of the chest that showed bilateral prominence with pleural effusion greater on the right with left lower lobe consolidation and right lower lobe, right middle lobe, left upper lobe atelectasis. Right upper lobe cavitary lesion with dependent nodules suggest fungal. His pulse ox initially was 89% he has been afebrile. White count was 11.5 and improved to 7.5. D-dimer was elevated at 5.1. GFR greater than 60. Lactic acid initially 2.1 followed by 4.64. Albumin 3.7. Troponin 0.012. Patient was admitted to the intensive care unit and consult requested with pulmonary medicine as well. Patient does have history of smoking for 40+ years at least 1 pack per day or more. He also has history of alcohol abuse with 4-5 beers per day but recently had to cut back as he has not been feeling well and is now drinking one can per day. He does have service in [place] but was not exposed to agent orange. He denies any recent travel. He is currently living alone. 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 He knows there are mice in his home. please see the consult note as dictated by nurse practitioner Mrs Vilma Cordova. the patient Is quite cantankerous. He is very discontent about being in the hospital. A relates that he has a short of breath and desires to be here at this time. He was noted that he has had cough with bloody sputum production at times. With a cavitary lung lesion. With his history of alcoholism would be concerned to tuberculosis. The patient however is now had 5 CT scans performed over the last period of time. At this time there is no evidence of any tuberculosis on any of the scans. 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 He also has an extensive effusion to the right lower lobe. Pulmonary critical care is consulted. Likely will need of sampling of the fluid for further evaluation. When more stable may also do well with bronchoscopy for sampling of that right upper lobe lesion. At this time for antimicrobial therapy for persistent on tazobactam and levofloxacin are being utilized with concerns for aspiration pneumonia, gram-negative pneumonia because of his alcoholism and very rapidly declining status. As noted the patient does not appear to tuberculosis and would not need isolation at this time for potential aspergilloma. Alcohol withdrawal protocol is added. I agree with evaluation, assessment and plan as dictated by nurse practitioner Mrs. Vilma Cordova.
[2016-09-20] MEDS: IPRATROPIUM-ALBUTEROL 3 ML NEB INHALATION PRN ×5 (00:19→19:52)
[2016-09-20] MEDS: LEVOFLOXACIN 750MG-D5W PMX 750 MG in DEXTROSE/WATER 1 150ML.BAG IVPB SCH (03:47)
[2016-09-20] MEDS: SODIUM CHLORIDE 0.9% 1,000 ML IV SCH ×2 (03:56→18:35)
[2016-09-20] MEDS ORDERED: VANCOMYCIN TROUGH DUE 1 EACH MISC MISCELLANE ONE (05:00)
[2016-09-20 07:45] LABS: Glucose,Whole Blood 118 mg/dL (75-99)
[2016-09-20] MEDS: ENOXAPARIN 40 MG/0.4 ML SYRINGE SQ SCH (07:52)
[2016-09-20] MEDS: INSULIN LISPRO (humaLOG) 300 UNIT/3 ML VIAL SQ SCH ×4 (07:52→21:22)
[2016-09-20] MEDS: FAMOTIDINE 20 MG/2 ML VIAL IV SCH (07:52)
[2016-09-20] MEDS: methylPREDNISolone SOD SUCCI 40 MG/ML 1 ML VIAL IV SCH ×2 (07:52→18:24)
[2016-09-20] MEDS: PIPERACILLIN-TAZOBACTAM 3.375 GM in DEXTROSE/WATER 1 50ML.BAG IVPB SCH ×2 (09:19→18:24)
--- NOTE | 2016-09-20 10:01 | PN ---
Casey Jacobsen is a 65-year-old male, seen, evaluated, and examined. 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 Patient remains on broad-spectrum antibiotics. Clinically, patient is doing well. Hemodynamically stable. Cough, congestion, shortness of breath has improved. The patient has been moved out of the ICU to a stepdown unit. His last set of vitals include blood pressure is 100/56, respiratory rate 22, pulse 88, temperature 98, saturation 95% on 4 L oxygen. HEENT: Unremarkable. NECK: Supple. LUNGS: Bilateral coarse breath sounds present. HEART: Regular rate and rhythm. ABDOMEN: Soft. NEUROLOGICAL EXAMINATION: Awake and alert. Current medications reviewed. Laboratory data reviewed as well. IMPRESSION: 1. Bilateral pneumonia, right-sided pleural effusion. 2. 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 Plan is to continue antibiotics, supportive care. This patient sees Dr. Yenifer Phipps. At this point of time, will sign off and transfer the pulmonary care to Dr. Yenifer Phipps. I have notified the RN as well to notify Dr. Phipps and change the consult.
[2016-09-20 12:45] LABS: Glucose,Whole Blood 128 mg/dL (75-99)
[2016-09-20] MEDS: THIAMINE 100 MG TAB PO SCH ×2 (14:30→18:24)
--- NOTE | 2016-09-20 14:56 | CONS ---
DATE OF CONSULTATION: He is a 65-year-old male who presented to the ED on 09/18/2016 with difficulty breathing over the last few months. He had been coughing and subsequently was admitted for further evaluation. He is sleepy at this time, arousable, but does not give me much history. His past medical history is positive for COPD. No clear history of lung cancer. History of emphysema. History of weight loss. FAMILY HISTORY: Noncontributory. SOCIAL HISTORY: The patient is a heavy smoker and drinks alcohol excessively. REVIEW OF SYSTEMS: Positive for weight loss. Medications prior to admission were ipratropium and albuterol. On physical examination, respiratory rate is 22, pulse of 88, temperature 97.5, blood pressure 100/56, O2 sat on 4 L by nasal cannula is 95%. HEENT reveals pupils are equal. Chest reveals decreased breath sounds, more decreased in the right than the left. Cardiovascular system reveals an S1 and S2. Abdomen is soft. There is trace pedal edema. CT scan of the chest shows no evidence of PE. There are bilateral pleural effusions, more on the right than the left with left lower lobe consolidation, right lower lobe and middle lobe atelectatic changes and a right upper lobe cavitary lesion which may be due to fungal etiology. IMPRESSION AT THIS TIME: 1. Chronic obstructive pulmonary disease with acute exacerbation. 2. Pneumonia. 3. Possible aspergillosis. 4. Pleural effusions, etiology which is unclear. 5. Medical debility with protein calorie malnutrition is likely. At this point in time, continue the patient on GI and DVT prophylaxis. Continue IV steroids. Continue Zosyn, which will cover for aspiration-type organisms. Continue Levaquin. Agree with multivitamins. Will re-discuss possible thoracentesis with the patient when he is otherwise stable. Alcohol withdrawal syndrome for which he is being appropriately treated with benzodiazepines. His prognosis at this time is guarded. He was counseled regarding his condition and has limited understanding of our recommendations.
[2016-09-20 17:19] LABS: Glucose,Whole Blood 141 mg/dL (75-99)
--- NOTE | 2016-09-20 17:19 | P.PN ---
Subjective Principal diagnosis: Shortness of breath This is a 65-year-old male. He has a past medical history of COPD. He gives history of being shortness of breath for a couple of months with occasional chills. He states he had a few drops of blood in his sputum initially but that went away. He has had weight loss of 20 pounds with loss of appetite, generalized weakness and fatigue and generalized malaise. He did not seek any treatment until he came into the ER on September 18. Chest x-ray showed multifocal pleural parenchyma. He underwent a CAT scan of the chest that showed bilateral prominence with pleural effusion greater on the right with left lower lobe consolidation and right lower lobe, right middle lobe, left upper lobe atelectasis. Right upper lobe cavitary lesion with dependent nodules suggest fungal. His pulse ox initially was 89% he has been afebrile. White count was 11.5 and improved to 7.5. D-dimer was elevated at 5.1. GFR greater than 60. Lactic acid initially 2.1 followed by 4.64. Albumin 3.7. Troponin 0.012. Patient was admitted to the intensive care unit and consult requested with pulmonary medicine as well. Patient does have history of smoking for 40+ years at least 1 pack per day or more. He also has history of alcohol abuse with 4-5 beers per day but recently had to cut back as he has not been feeling well and is now drinking one can per day. He does have service in [place] but was not exposed to agent orange. He denies any recent travel. He is currently living alone. 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 The patient relates that he is just slightly less short of breath than yesterday. He still is working very hard to breathe. He's having cough without much sputum production at the moment. No current hemoptysis. Feels very weak. Attempting to eat more because he's had slight weight loss. Objective - Vital Signs Vital signs: Vital Signs Temp 97.4 F L 09/20/16 15:00 Pulse 88 09/20/16 16:05 Resp 18 09/20/16 15:00 BP 113/64 09/20/16 15:00 Pulse Ox 91 L 09/20/16 15:00 Intake & Output 09/19/16 09/20/16 09/20/16 18:59 06:59 18:59 Intake Total 2026.5 392.5 880 Output Total 1200 250 Balance 827.5 142.5 880 Intake: IV 850 80 640 Sodium Chloride 0.9% 1, 850 80 000 ml @ 150 mls/hr IV . [id number] JANEY Rx#:[id number] Sodium Chloride 0.9% 1, 640 000 ml @ 80 mls/hr IV . [id number] JANEY Rx#:[id number] Intake, IV Titration 392.5 92.5 Amount Piperacillin-Tazobactam 3 62.5 12.5 .375 gm In Dextrose/Water 1 50ml.bag @ 12.5 mls/hr IVPB Q8HR JANEY Rx#: [id number] Sodium Chloride 0.9% 1, 80 80 000 ml @ 80 mls/hr IV . [id number] JANEY Rx#:[id number] Vancomycin 1,500 mg In 250 Sodium Chloride 0.9% 250 ml @ 125 mls/hr IVPB Q12H JANEY Rx#:[id number] Oral 785 220 240 Output: Urine 1200 250 Other: Voiding Method Urinal # Voids 1 - Exam Gen: This is a thin 65-year-old male. Still appears to be short of breath. Coughs occasionally. Remains very distinctly unhappy that he is ill and hospitalized but understands the reasoning. HEENT: Head is atraumatic, normocephalic. Pupils equal, round. Sclerae is anicteric. Oral mucous membranes are dry. Dentition is in poor order and patient has only a few teeth left. No thrush noted. NECK: Supple. No JVD. No lymphadenopathy. No thyromegaly. LUNGS: Coarse crackles throughout with occasional scattered expiratory wheeze. Moderate intercostal retractions. Patient has increased dyspnea with minimal exertion. HEART: Regular rate and rhythm. No murmur. ABDOMEN: Soft. Bowel sounds are present. No masses. No tenderness. EXTREMITIES: No pedal edema. No calf tenderness. Dorsalis pedis +2 bilaterally. NEUROLOGICAL: Patient is awake, alert and oriented x3 - Labs CBC & Chem 7: 09/19/16 04:12 09/19/16 04:12 Labs: Abnormal Lab Results - Last 24 Hours (Table) 09/19/16 09/20/16 09/20/16 Range/Units 18:54 07:05 11:43 POC Glucose (mg/dL) 118 H 128 H (75-99) mg/dL Plasma Lactic Acid Gurpreet 2.1 H (0.7-2.0) mmol/L Laboratory Results WBC 7.4 k/uL (3.8-10.6) 09/19/16 04:12 RBC 4.30 m/uL (4.30-5.90) 09/19/16 04:12 Hgb 13.5 gm/dL (13.0-17.5) D 09/19/16 04:12 Hct 40.4 % (39.0-53.0) 09/19/16 04:12 MCV 94.0 fL (80.0-100.0) 09/19/16 04:12 MCH 31.5 pg (25.0-35.0) 09/19/16 04:12 MCHC 33.5 g/dL (31.0-37.0) 09/19/16 04:12 RDW 13.3 % (11.5-15.5) 09/19/16 04:12 Plt Count 190 k/uL (150-450) 09/19/16 04:12 Neutrophils % 88 % 09/19/16 04:12 Lymphocytes % 7 % 09/19/16 04:12 Monocytes % 4 % 09/19/16 04:12 Eosinophils % 0 % 09/19/16 04:12 Basophils % 0 % 09/19/16 04:12 Neutrophils # 6.5 k/uL (1.3-7.7) 09/19/16 04:12 Lymphocytes # 0.5 k/uL (1.0-4.8) L 09/19/16 04:12 Monocytes # 0.3 k/uL (0-1.0) 09/19/16 04:12 Eosinophils # 0.0 k/uL (0-0.7) 09/19/16 04:12 Basophils # 0.0 k/uL (0-0.2) 09/19/16 04:12 PT 11.7 sec (9.0-12.0) 09/18/16 16:45 INR 1.2 (<1.1) 09/18/16 16:45 APTT 25.8 sec (22.0-30.0) 09/18/16 16:45 D-Dimer 5.10 mg/L FEU (<0.60) H 09/18/16 16:45 Sodium 130 mmol/L (137-145) L 09/19/16 04:12 Potassium 4.2 mmol/L (3.5-5.1) 09/19/16 04:12 Chloride 97 mmol/L (98-107) L 09/19/16 04:12 Carbon Dioxide 22 mmol/L (22-30) 09/19/16 04:12 Anion Gap 11 mmol/L 09/19/16 04:12 BUN 10 mg/dL (9-20) 09/19/16 04:12 Creatinine 0.50 mg/dL (0.66-1.25) L 09/19/16 04:12 Est GFR (MDRD) Af Amer >60 (>60 ml/min/1.73 sqM) 09/19/16 04:12 Est GFR (MDRD) Non-Af >60 (>60 ml/min/1.73 sqM) 09/19/16 04:12 Glucose 176 mg/dL (74-99) H 09/19/16 04:12 POC Glucose (mg/dL) 128 mg/dL (75-99) H 09/20/16 11:43 POC Glu Wiping Rag Washer ID Nelida Nance 09/20/16 11:[address] Glu mg/dL 117 mg/dL 09/18/16 16:45 Hemoglobin A1c 5.7 % (4.2-6.1) 09/18/16 16:45 Plasma Lactic Acid Gurpreet 2.1 mmol/L (0.7-2.0) H 09/19/16 18:54 Calcium 8.5 mg/dL (8.4-10.2) 09/19/16 04:12 Phosphorus 3.2 mg/dL (2.5-4.5) 09/19/16 04:12 Magnesium 1.8 mg/dL (1.6-2.3) 09/19/16 04:12 Total Bilirubin 1.0 mg/dL (0.2-1.3) 09/18/16 16:45 AST 38 U/L (17-59) 09/18/16 16:45 ALT 33 U/L (21-72) 09/18/16 16:45 Alkaline Phosphatase 170 U/L (38-126) H 09/18/16 16:45 Total Creatine Kinase 82 U/L (55-170) 09/18/16 16:45 CK-MB (CK-2) 6.8 ng/mL (0.0-2.4) H* 09/18/16 16:45 CK-MB (CK-2) Rel Index 8.3 09/18/16 16:45 Troponin I <0.012 ng/mL (0.000-0.034) 09/18/16 16:45 NT-Pro-B Natriuret Pep 391 pg/mL 09/18/16 16:45 Total Protein 7.8 g/dL (6.3-8.2) 09/18/16 16:45 Albumin 3.7 g/dL (3.5-5.0) 09/18/16 16:45 Vancomycin Trough <5.0 ug/mL 09/20/16 05:48 Microbiology 09/18/16 16:45 Blood Blood Culture - Preliminary No Growth after 24 hours 09/18/16 17:06 Sputum Gram Stain - Preliminary Assessment and Plan (1) Acute exacerbation of chronic obstructive airways disease Status: Acute (2) Cavitary pneumonia Narrative/Plan: He was noted that he has had cough with bloody sputum production at times. With a cavitary lung lesion. With his history of alcoholism would be concerned to tuberculosis. The patient however is now had 5 CT scans performed over the last period of time. At this time there is no evidence of any tuberculosis on any of the scans. 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 He also has an extensive effusion to the right lower lobe. Pulmonary critical care is consulted. Likely will need of sampling of the fluid for further evaluation. When more stable may also do well with bronchoscopy for sampling of that right upper lobe lesion. At this time for antimicrobial therapy for persistent on tazobactam and levofloxacin are being utilized with concerns for aspiration pneumonia, gram-negative pneumonia because of his alcoholism and very rapidly declining status. He's a move out of the ICU. He is feeling somewhat better. He still is very short of breath with any motion. Understands that he needs to eat to get respiratory treatments. Pulmonary is following. If he becomes well for bronchoscopy, would be helpful. Also consideration for thoracentesis to help with his significant effusion. Drainage of this may help his significant shortness of breath. Bronchoscopy will give sampling that will help us determine if he needs antifungal therapy. Status: Acute
[2016-09-20] MEDS: FAMOTIDINE 20 MG TAB PO SCH (21:19)
[2016-09-20 21:45] LABS: Glucose,Whole Blood 138 mg/dL (75-99)
[2016-09-21] MEDS: PIPERACILLIN-TAZOBACTAM 3.375 GM in DEXTROSE/WATER 1 50ML.BAG IVPB SCH ×4 (00:46→23:11)
[2016-09-21] MEDS: methylPREDNISolone SOD SUCCI 40 MG/ML 1 ML VIAL IV SCH ×4 (00:49→23:11)
[2016-09-21 08:11] LABS: Glucose,Whole Blood 134 mg/dL (75-99)
[2016-09-21] MEDS: INSULIN LISPRO (humaLOG) 300 UNIT/3 ML VIAL SQ SCH ×4 (08:15→21:32)
[2016-09-21] MEDS: IPRATROPIUM-ALBUTEROL 3 ML NEB INHALATION PRN ×4 (08:33→20:29)
[2016-09-21] MEDS: ENOXAPARIN 40 MG/0.4 ML SYRINGE SQ SCH (08:45)
[2016-09-21] MEDS: FAMOTIDINE 20 MG TAB PO SCH ×2 (08:46→21:08)
[2016-09-21] MEDS: LEVOFLOXACIN 750 MG TAB PO SCH (08:46)
--- NOTE | 2016-09-21 09:52 | PN ---
DATE OF SERVICE: 09/20/2016 This 65-year-old gentleman who was admitted with bilateral pneumonia and also sepsis, was on multiple antibiotics. Patient also has hypercarbic hypoxia respiratory failure. The patient has chronic obstructive pulmonary disease exacerbation. The patient is being closely monitored. Pulmonary, Dr. Phipps and as well as Dr. Ricci are following the patient closely. The CT scan showed no evidence of pulmonary embolism. PAST MEDICAL HISTORY: Reviewed. REVIEW OF SYSTEMS: CARDIOVASCULAR: No angina. RESPIRATORY: As mentioned earlier. GI: As mentioned. : No dysuria. NERVOUS SYSTEM: No numbness or weakness. Current medications are reviewed and include: 1. DuoNeb q.i.d. and p.r.n. 2. Lovenox 40 mg subcu daily. 3. Pepcid 20 mg b.i.d. 4. Humalog daily. 5. Levaquin 750 daily. 6. Ativan 1 mg q.2 p.r.n. 7. Solu-Medrol 40 IV q.6. 8. Zosyn IV. PHYSICAL EXAMINATION: Patient is alert and oriented x2. Pulse 88, blood pressure is 130/64, respirations 18, temperature 97.4, pulse ox 91% on 3 liters. HEENT: Conjunctivae normal. NECK: No jugular venous distention. CARDIOVASCULAR: S1 and S2, muffled. RESPIRATORY: Breath sounds diminished at the bases. A few scattered rhonchi, no crackles. ABDOMEN: Soft, nontender. No mass palpable. LEGS: No edema, no swelling. NERVOUS SYSTEM: No focal deficits. Labs at this time shows Accu-Cheks are 141. Other labs are pending at this time. ASSESSMENT: 1. Chronic obstructive pulmonary disease, acute exacerbation with bilateral pneumonia, possibly gram-negative due to severe sepsis with acute hypoxic hypercarbic respiratory failure. 2. Extensive emphysema. 3. Cavitary lesion in the right upper lobe. 4. Elevated d-dimer with no evidence of pulmonary embolus. 5. Hypovolemic hyponatremia. 6. Lactic acid secondary to sepsis. 7. Continued ongoing nicotine dependence. 8. Increased WBC, possibly secondary to pneumonia. 9. FULL CODE. RECOMMENDATIONS AND DISCUSSION: In this 65-year-old gentleman who presented with multiple complex medical issues, will monitor the patient closely. Continue the current medications. Continue symptomatic treatment. Otherwise at this time, I recommend continue with broad-spectrum antibiotics. Follow the cultures. Continue to follow with Pulmonary. Guarded prognosis. Further recommendations to follow. See orders for details.
[2016-09-21] MEDS: SODIUM CHLORIDE 0.9% 1,000 ML IV SCH ×2 (11:09→19:30)
[2016-09-21 12:01] LABS: Glucose,Whole Blood 105 mg/dL (75-99)
[2016-09-21] MEDS: THIAMINE 100 MG TAB PO SCH ×2 (12:32→17:56)
[2016-09-21] MEDS: BENZOCAINE/MENTHOL LOZENG 1 EACH LOZENGE MUCOUS MEM PRN (12:32)
[2016-09-21] MEDS: LORazepam 1 MG TAB PO PRN ×2 (12:34→21:08)
--- NOTE | 2016-09-21 16:22 | P.PN ---
Subjective Principal diagnosis: Shortness of breath This is a 65-year-old male. He has a past medical history of COPD. He gives history of being shortness of breath for a couple of months with occasional chills. He states he had a few drops of blood in his sputum initially but that went away. He has had weight loss of 20 pounds with loss of appetite, generalized weakness and fatigue and generalized malaise. He did not seek any treatment until he came into the ER on September 18. Chest x-ray showed multifocal pleural parenchyma. He underwent a CAT scan of the chest that showed bilateral prominence with pleural effusion greater on the right with left lower lobe consolidation and right lower lobe, right middle lobe, left upper lobe atelectasis. Right upper lobe cavitary lesion with dependent nodules suggest fungal. His pulse ox initially was 89% he has been afebrile. White count was 11.5 and improved to 7.5. D-dimer was elevated at 5.1. GFR greater than 60. Lactic acid initially 2.1 followed by 4.64. Albumin 3.7. Troponin 0.012. Patient was admitted to the intensive care unit and consult requested with pulmonary medicine as well. Patient does have history of smoking for 40+ years at least 1 pack per day or more. He also has history of alcohol abuse with 4-5 beers per day but recently had to cut back as he has not been feeling well and is now drinking one can per day. He does have service in [place] but was not exposed to agent orange. He denies any recent travel. He is currently living alone. 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 The patient relates that he is just slightly less short of breath than yesterday. He still is working very hard to breathe. He's having cough without much sputum production at the moment. No current hemoptysis. Feels very weak. Attempting to eat more because he's had weight loss. Objective - Vital Signs Vital signs: Vital Signs Temp 96.9 F L 09/21/16 15:00 Pulse 96 09/21/16 16:06 Resp 18 09/21/16 15:00 BP 110/71 09/21/16 15:00 Pulse Ox 93 L 09/21/16 15:00 Intake & Output 09/20/16 09/21/16 09/21/16 18:59 06:59 18:59 Intake Total 880 Output Total 600 Balance 880 -600 Intake: IV 640 Sodium Chloride 0.9% 1, 640 000 ml @ 80 mls/hr IV . [id number] [facility] Rx#:[id number] Oral 240 Output: Urine 600 Other: # Voids 0 3 # Bowel Movements 0 - Exam Gen: This is a thin 65-year-old male. Still appears to be short of breath. Coughs occasionally. Remains very distinctly unhappy that he is ill and hospitalized but understands the reasoning. HEENT: Head is atraumatic, normocephalic. Pupils equal, round. Sclerae is anicteric. Oral mucous membranes are dry. Dentition is in poor order and patient has only a few teeth left. No thrush noted. NECK: Supple. No JVD. No lymphadenopathy. No thyromegaly. LUNGS: Coarse crackles throughout with occasional scattered expiratory wheeze. Moderate intercostal retractions. Patient has increased dyspnea with minimal exertion. HEART: Regular rate and rhythm. No murmur. ABDOMEN: Soft. Bowel sounds are present. No masses. No tenderness. EXTREMITIES: No pedal edema. No calf tenderness. Dorsalis pedis +2 bilaterally. NEUROLOGICAL: Patient is awake, alert and oriented x3 - Labs CBC & Chem 7: 09/19/16 04:12 09/19/16 04:12 Labs: Abnormal Lab Results - Last 24 Hours (Table) 09/20/16 09/20/16 09/21/16 Range/Units 17:08 21:13 08:10 POC Glucose (mg/dL) 141 H 138 H 134 H (75-99) mg/dL 09/21/16 Range/Units 11:59 POC Glucose (mg/dL) 105 H (75-99) mg/dL Laboratory Results WBC 7.4 k/uL (3.8-10.6) 09/19/16 04:12 RBC 4.30 m/uL (4.30-5.90) 09/19/16 04:12 Hgb 13.5 gm/dL (13.0-17.5) D 09/19/16 04:12 Hct 40.4 % (39.0-53.0) 09/19/16 04:12 MCV 94.0 fL (80.0-100.0) 09/19/16 04:12 MCH 31.5 pg (25.0-35.0) 09/19/16 04:12 MCHC 33.5 g/dL (31.0-37.0) 09/19/16 04:12 RDW 13.3 % (11.5-15.5) 09/19/16 04:12 Plt Count 190 k/uL (150-450) 09/19/16 04:12 Neutrophils % 88 % 09/19/16 04:12 Lymphocytes % 7 % 09/19/16 04:12 Monocytes % 4 % 09/19/16 04:12 Eosinophils % 0 % 09/19/16 04:12 Basophils % 0 % 09/19/16 04:12 Neutrophils # 6.5 k/uL (1.3-7.7) 09/19/16 04:12 Lymphocytes # 0.5 k/uL (1.0-4.8) L 09/19/16 04:12 Monocytes # 0.3 k/uL (0-1.0) 09/19/16 04:12 Eosinophils # 0.0 k/uL (0-0.7) 09/19/16 04:12 Basophils # 0.0 k/uL (0-0.2) 09/19/16 04:12 PT 11.7 sec (9.0-12.0) 09/18/16 16:45 INR 1.2 (<1.1) 09/18/16 16:45 APTT 25.8 sec (22.0-30.0) 09/18/16 16:45 D-Dimer 5.10 mg/L FEU (<0.60) H 09/18/16 16:45 Sodium 130 mmol/L (137-145) L 09/19/16 04:12 Potassium 4.2 mmol/L (3.5-5.1) 09/19/16 04:12 Chloride 97 mmol/L (98-107) L 09/19/16 04:12 Carbon Dioxide 22 mmol/L (22-30) 09/19/16 04:12 Anion Gap 11 mmol/L 09/19/16 04:12 BUN 10 mg/dL (9-20) 09/19/16 04:12 Creatinine 0.50 mg/dL (0.66-1.25) L 09/19/16 04:12 Est GFR (MDRD) Af Amer >60 (>60 ml/min/1.73 sqM) 09/19/16 04:12 Est GFR (MDRD) Non-Af >60 (>60 ml/min/1.73 sqM) 09/19/16 04:12 Glucose 176 mg/dL (74-99) H 09/19/16 04:12 POC Glucose (mg/dL) 105 mg/dL (75-99) H 09/21/16 11:59 POC Glu Invoicing Machine Operator ID Ashlie Mojica 09/21/16 11:[address] Glu mg/dL 117 mg/dL 09/18/16 16:45 Hemoglobin A1c 5.7 % (4.2-6.1) 09/18/16 16:45 Plasma Lactic Acid Gurpreet 2.1 mmol/L (0.7-2.0) H 09/19/16 18:54 Calcium 8.5 mg/dL (8.4-10.2) 09/19/16 04:12 Phosphorus 3.2 mg/dL (2.5-4.5) 09/19/16 04:12 Magnesium 1.8 mg/dL (1.6-2.3) 09/19/16 04:12 Total Bilirubin 1.0 mg/dL (0.2-1.3) 09/18/16 16:45 AST 38 U/L (17-59) 09/18/16 16:45 ALT 33 U/L (21-72) 09/18/16 16:45 Alkaline Phosphatase 170 U/L (38-126) H 09/18/16 16:45 Total Creatine Kinase 82 U/L (55-170) 09/18/16 16:45 CK-MB (CK-2) 6.8 ng/mL (0.0-2.4) H* 09/18/16 16:45 CK-MB (CK-2) Rel Index 8.3 09/18/16 16:45 Troponin I <0.012 ng/mL (0.000-0.034) 09/18/16 16:45 NT-Pro-B Natriuret Pep 391 pg/mL 09/18/16 16:45 Total Protein 7.8 g/dL (6.3-8.2) 09/18/16 16:45 Albumin 3.7 g/dL (3.5-5.0) 09/18/16 16:45 Vancomycin Trough <5.0 ug/mL 09/20/16 05:48 Microbiology 09/18/16 17:06 Sputum Gram Stain - Final 09/18/16 17:06 Sputum Sputum Culture - Final 09/18/16 16:45 Blood Blood Culture - Preliminary No Growth after 48 hours Assessment and Plan (1) Acute exacerbation of chronic obstructive airways disease Status: Acute (2) Cavitary pneumonia Narrative/Plan: He was noted that he has had cough with bloody sputum production at times. With a cavitary lung lesion. With his history of alcoholism would be concerned to tuberculosis. The patient however is now had 5 CT scans performed over the last period of time. At this time there is no evidence of any tuberculosis on any of the scans. 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 He also has an extensive effusion to the right lower lobe. Pulmonary critical care is consulted. Likely will need of sampling of the fluid for further evaluation. When more stable may also do well with bronchoscopy for sampling of that right upper lobe lesion. At this time for antimicrobial therapy for persistent on tazobactam and levofloxacin are being utilized with concerns for aspiration pneumonia, gram-negative pneumonia because of his alcoholism and very rapidly declining status. He's a move out of the ICU. He is feeling somewhat better. He still is very short of breath with any motion. Understands that he needs to eat to get respiratory treatments. Pulmonary is following. If he becomes well for bronchoscopy, would be helpful. Also consideration for thoracentesis to help with his significant effusion. Drainage of this may help his significant shortness of breath. Bronchoscopy will give sampling that will help us determine if he needs antifungal therapy. Status: Acute
[2016-09-21 16:47] LABS: Glucose,Whole Blood 168 mg/dL (75-99)
[2016-09-21 17:42] LABS: Basophils % (A) 0 %; CH 32.5; CHCM 34.6; Eosinophils % (A) 0 %; HCT 43.9 % (39.0-53.0); HGB 14.5 gm/dL (13.0-17.5); Luc % (Auto) 1; Lymphocytes # (A) 0.8 k/uL (1.0-4.8); Lymphocytes % (A) 6 %; MCH 31.3 pg (25.0-35.0); MCHC 33.1 g/dL (31.0-37.0); MCV 94.6 fL (80.0-100.0); Mean Platelet Volume 7.8; Monocytes # (A) 0.6 k/uL (0-1.0); Monocytes % (A) 5 %; Neutrophils # (A) 10.4 k/uL (1.3-7.7); Neutrophils % (A) 87 %; RBC 4.64 m/uL (4.30-5.90); RDW 13.4 % (11.5-15.5); WBC (Perox) 12.38
[2016-09-21 17:50] LABS: Anion Gap 11 mmol/L; Blood Urea Nitrogen 9 mg/dL (9-20); Carbon Dioxide 22 mmol/L (22-30); Chloride 101 mmol/L (98-107); Glucose 146 mg/dL (74-99); Non-African American GFR(MDRD) >60 (>60 ml/min/1.73 sqM); Potassium 4.1 mmol/L (3.5-5.1); Sodium 134 mmol/L (137-145)
[2016-09-21 21:05] LABS: Glucose,Whole Blood 106 mg/dL (75-99)
[2016-09-22] MEDS: IPRATROPIUM-ALBUTEROL 3 ML NEB INHALATION PRN ×4 (07:11→20:14)
[2016-09-22 07:32] LABS: Glucose,Whole Blood 122 mg/dL (75-99)
[2016-09-22] MEDS: INSULIN LISPRO (humaLOG) 300 UNIT/3 ML VIAL SQ SCH ×4 (07:41→21:54)
[2016-09-22] MEDS: methylPREDNISolone SOD SUCCI 40 MG/ML 1 ML VIAL IV SCH ×3 (08:06→23:29)
[2016-09-22] MEDS: PIPERACILLIN-TAZOBACTAM 3.375 GM in DEXTROSE/WATER 1 50ML.BAG IVPB SCH ×3 (08:06→23:29)
[2016-09-22] MEDS: SODIUM CHLORIDE 0.9% 1,000 ML IV SCH ×2 (08:06→20:30)
[2016-09-22] MEDS: ENOXAPARIN 40 MG/0.4 ML SYRINGE SQ SCH (08:07)
--- NOTE | 2016-09-22 08:17 | PN ---
DATE OF SERVICE: 09/21/2016 This 65-year-old gentleman was admitted with COPD acute exacerbation and hypoxic respiratory failure with extensive emphysema. Patient had cavitary lesion and right upper lobe infiltrate and Pulmonary are following the patient closely. No fever. No cough. Currently patient is on Zosyn. On exam, alert and oriented x3. The pulse is 98, blood pressure 110/71, respiration 18, temperature is 96.9, pulse ox 93% on 4 L. HEENT: Conjunctivae normal, oral mucosa moist. NECK: No jugular venous distension, no carotic bruit, no lymph node enlargement. CARDIOVASCULAR SYSTEM: S1, S2, muffled. RESPIRATORY: Breath sounds diminished at the bases, bilateral scattered rhonchi, no crackles. Abdomen is soft, nontender. EXTREMITIES: Legs no edema, no swelling. NERVOUS SYSTEM: No focal deficits. Labs are Accu-Cheks 105, 168. Other labs are noted. Sodium 130. ASSESSMENT: 1. Chronic obstructive pulmonary disease acute exacerbation, with bilateral pneumonia, possibly gram-negative due to severe sepsis with acute hypoxic hypercarbic respiratory failure. 2. Emphysema. 3. Cavitary lesion in the right upper lobe. 4. Elevated d-dimer with no evidence of pulmonary embolism. 5. Hypovolemic hyponatremia. 6. Lactic acidosis secondary to sepsis. 7. Continued ongoing nicotine dependence. 8. Increased WBC, possibly secondary to pneumonia. 9. FULL CODE. RECOMMENDATION: Recommend to continue with the current medications. Continue with the monitoring and symptomatic treatment. Continue with antibiotics. Closely follow with Infectious Disease and Pulmonary. Otherwise, I would recommend repeat labs. Guarded prognosis because of multiple complex medical issues and further recommendations to follow. See orders for further details.
[2016-09-22 09:21] LABS: Basophils % (A) 0 %; CH 32.2; CHCM 34.1; Eosinophils % (A) 0 %; HCT 44.9 % (39.0-53.0); HDW 2.83; Luc # (Auto) 0.18; Luc % (Auto) 2; Lymphocytes # (A) 0.7 k/uL (1.0-4.8); Lymphocytes % (A) 7 %; MCH 31.7 pg (25.0-35.0); MCHC 33.4 g/dL (31.0-37.0); MCV 94.9 fL (80.0-100.0); Mean Platelet Volume 6.8; Monocytes # (A) 0.5 k/uL (0-1.0); Monocytes % (A) 5 %; Neutrophils # (A) 8.1 k/uL (1.3-7.7); Neutrophils % (A) 86 %; RBC 4.72 m/uL (4.30-5.90); RDW 13.5 % (11.5-15.5); WBC 9.4 k/uL (3.8-10.6); WBC (Perox) 9.62
[2016-09-22 09:47] LABS: Anion Gap 11 mmol/L; Blood Urea Nitrogen 9 mg/dL (9-20); Carbon Dioxide 25 mmol/L (22-30); Chloride 101 mmol/L (98-107); Glucose 115 mg/dL (74-99); Non-African American GFR(MDRD) >60 (>60 ml/min/1.73 sqM); Potassium 4.2 mmol/L (3.5-5.1); Sodium 137 mmol/L (137-145)
--- NOTE | 2016-09-22 09:57 | PN ---
DATE OF SERVICE: 09/21/2016 The patient has remained hemodynamically stable. He continues to have shortness of breath. On physical examination, his blood pressure is 110/71, respiratory rate 18, pulse of 90, temperature 96.9, O2 sat on 4 liters by nasal cannula is 93%. HEENT is unremarkable. Chest reveals bilateral expiratory wheeze with decreased breath sounds at the bases, more decreased on the right than the left. Cardiovascular system reveals S1 and S2. Abdomen is soft. There is no pedal edema. IMPRESSION: 1. Chronic obstructive pulmonary disease with acute exacerbation. 2. Cavitary pneumonia, which may be due to aspiration versus aspergilloma. 3. Pleural effusion, more on the right than the left. I did have a conversation with the patient regarding possible further work-up. At this point in time, would arrange for ultrasound-guided thoracentesis of the right. Depending on what the fluid shows, we shall make further changes to his care. Consideration for further work-up depending on the fluid results. Would continue him on antibiotics to cover for gram negatives and anaerobes in the form of Levaquin and Zosyn at this time.
[2016-09-22] MEDS: THIAMINE 100 MG TAB PO SCH ×2 (10:48→15:39)
[2016-09-22] MEDS: FAMOTIDINE 20 MG TAB PO SCH ×2 (10:48→20:29)
[2016-09-22] MEDS: LEVOFLOXACIN 750 MG TAB PO SCH (10:48)
[2016-09-22 11:41] LABS: INR 1.1 (<1.1)
[2016-09-22 11:52] LABS: Glucose,Whole Blood 107 mg/dL (75-99)
--- NOTE | 2016-09-22 13:36 | US ---
Ultrasound-guided therapeutic and diagnostic thoracentesis CLINICAL HISTORY: Right pleural effusion The procedure was discussed with the patient. The risks, complications, benefits, and alternatives we re discussed and any questions were answered. Informed consent was obtained. The patient was placed s upine on the ultrasound table and prepped and draped in the usual sterile fashion. All elements of maximal barrier and sterile technique were utilized. Under ultrasound guidance, acce ss into the left pleural space was obtained, via the thoracentesis catheter system and direct ultraso und guidance. Approximately 1.2 liters of serous fluid was removed. The patient was stable throughout the procedure and remained stable upon discharge from Department of Radiology. IMPRESSION: Successful therapeutic and diagnostic thoracentesis under ultrasound guidance.
--- NOTE | 2016-09-22 13:38 | XR ---
EXAMINATION TYPE: XR chest 1V portable DATE OF EXAM: 09/22/2016 1:32 PM Comparison: 09/22/2016 Clinical History: 65-year-old male post right thoracentesis. Findings: Heart remains normal size. There is interval decrease in the size of the right pleural effusion now w ith residual [id number] effusion. Similar small to moderate effusion on the left. There is und erlying emphysema, extensive pleural parenchymal opacities, and redemonstrated a cavity in the right upper lobe. Impression: 1. COPD and continued extensive pleural-parenchymal opacities cavitation in the right upper lobe. 2. Decreased, now small to moderate-sized right pleural effusion and similar small to moderate-sized left pleural effusion. Adjacent atelectasis and/or consolidation. 3. No appreciable pneumothorax.
--- NOTE | 2016-09-22 13:56 | XR ---
EXAMINATION TYPE: XR chest 1V portable DATE OF EXAM: 09/22/2016 10:24 AM Comparison: 09/19/2016 Clinical History: 65-year-old male, assess for pleural effusion. Findings: RIGHT heart margin obscured by adjacent pleural parenchymal disease. A moderate to large right-sided pleural effusion extending up to the mid thoracic level. Cavitation and filling defect within the cav ity redemonstrated at the right upper lobe. Extensive pleural-parenchymal opacities with a underlying emphysema and small to moderate left pleural effusion. Focal left midlung opacity is unchanged. Impression: Extensive pleural parenchymal opacities superimposed on COPD. 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 Moderate to large right pleural effusion and [id number] left pleural e ffusion.
[2016-09-22] MEDS: ACETAMINOPHEN TAB 325 MG TAB PO PRN (15:51)
--- NOTE | 2016-09-22 15:58 | P.PN ---
Subjective Date of service 09/22/2016 Progress note being dictated for Dr. Finley. Interval history: This is a 65-year-old gentleman admitted with acute COPD exacerbation, cavitary pneumonia, pleural effusions and multiple other medical issues. Evaluated by pulmonary with recommendations noted. Underwent diagnostic thoracentesis today with interventional radiology, 1.2 L of serous fluid removed. Tolerated procedure well. Maintained on Levaquin and Zosyn. Shortness of breath improving. No cough. Afebrile, Past medical history reviewed. Review of systems: HEENT: Denies headache or focal deficits. Denies any dizziness or lightheadedness. Complains of generalized weakness. Respiratory: Denies any increased shortness of breath. Cardiac: Denies any chest pain, palpitations. GI: Denies any nausea, vomiting, or diarrhea. Denies any abdominal tenderness. : Denies any dysuria. Psychiatry: Denies any anxiety or depression. Active Medications Acetaminophen (Tylenol Tab) 650 mg PO Q6HR PRN PRN Reason: Fever and/ or Pain Albuterol/Ipratropium (Duoneb 0.5 Mg-3 Mg/3 Ml Soln) 3 ml INHALATION RT-Q2H PRN PRN Reason: shortness of breath Last Admin: 09/22/16 11:08 Dose: 3 ml Benzocaine/Menthol (Cepacol Lozenge) 1 each MUCOUS MEM Q4HR PRN PRN Reason: Cough Last Admin: 09/21/16 12:32 Dose: 1 each Enoxaparin Sodium (Lovenox) 40 mg SQ DAILY [facility] Last Admin: 09/22/16 08:07 Dose: Not Given Famotidine (Pepcid) 20 mg PO Q12HR [facility] Last Admin: 09/22/16 10:48 Dose: 20 mg Piperacillin/Tazobactam/ (Dextrose 3.375 gm/ IV Solution) 50 mls @ 12.5 mls/hr IVPB Q8HR [facility] Stop: 09/29/16 08:01 Last Admin: 09/22/16 15:41 Dose: 12.5 mls/hr Sodium Chloride (Saline 0.9%) 1,000 mls @ 80 mls/hr IV .[id number] [facility] Last Admin: 09/22/16 08:06 Dose: 80 mls/hr Insulin Human Lispro (Humalog) 0 unit SQ ACHS [facility] PRN Reason: Protocol Last Admin: 09/22/16 12:42 Dose: Not Given Levofloxacin (Levaquin) 750 mg PO DAILY [facility] Last Admin: 09/22/16 10:48 Dose: 750 mg Lorazepam (Ativan) 1 mg IV Q2HR PRN PRN Reason: CIWA 8 or 9 Last Admin: 09/20/16 00:41 Dose: 1 mg Lorazepam (Ativan) 1 mg IV Q1HR PRN PRN Reason: CIWA 10 to 15 Lorazepam (Ativan) 2 mg IV Q1HR PRN PRN Reason: CIWA 16 or higher Lorazepam (Ativan) 1 mg PO Q4HR PRN PRN Reason: Anxiety Last Admin: 09/21/16 21:08 Dose: 1 mg Methylprednisolone Sodium Succinate (Solu-Medrol) 40 mg IV Q8HR [facility] Last Admin: 09/22/16 15:38 Dose: 40 mg Miscellaneous Information (Pneumonia Protocol Utilized) 1 each PO ONCE PRN PRN Reason: Per Protocol Thiamine HCl (Vitamin B-1) 100 mg PO BID@1200,1700 [facility] Last Admin: 09/22/16 15:39 Dose: 100 mg Objective - Vital Signs Vital signs: Vital Signs Temp 97.6 F 09/22/16 07:00 Pulse 108 H 09/22/16 11:19 Resp 18 09/22/16 08:30 BP 110/62 09/22/16 07:00 Pulse Ox 90 L 09/22/16 07:13 Intake & Output 09/21/16 09/22/16 09/22/16 18:59 06:59 18:59 Intake Total 50 880 Output Total 450 1 Balance -400 880 -1 Weight 73 kg Intake: IV 880 Sodium Chloride 0.9% 1, 880 000 ml @ 80 mls/hr IV . [id number] [facility] Rx#:[id number] Intake, IV Titration 50 Amount Piperacillin-Tazobactam 3 50 .375 gm In Dextrose/Water 1 50ml.bag @ 12.5 mls/hr IVPB Q8HR [facility] Rx#: [id number] Output: Urine 450 Stool 1 Other: Voiding Method Urinal Urinal Urinal # Voids 3 2 1 # Bowel Movements 0 - Exam PHYSICAL EXAM: VITAL SIGNS: As above GENERAL: [Sitting up in bed, no acute distress] HEENT: [Pupils equal conjunctiva normal.] NECK: [Supple, no JVD] RESPIRATORY EFFORT:[Normal] LUNGS: [Diminished, scattered rhonchi, no crackles] CARDIOVASCULAR[regular S1 and S2, no edema] GI: [Abdomen soft, nontender, positive bowel sounds.] PSYCH: [Alert and oriented -3, mood and affect normal.] NEURO: No focal deficits - Labs CBC & Chem 7: 09/22/16 08:23 09/22/16 08:23 Labs: Abnormal Lab Results - Last 24 Hours (Table) 09/21/16 09/21/16 09/21/16 Range/Units 16:45 17:28 17:28 WBC 12.0 H (3.8-10.6) k/uL Neutrophils # 10.4 H (1.3-7.7) k/uL Lymphocytes # 0.8 L (1.0-4.8) k/uL Sodium 134 L (137-145) mmol/L Creatinine 0.54 L (0.66-1.25) mg/dL Glucose 146 H (74-99) mg/dL POC Glucose (mg/dL) 168 H (75-99) mg/dL 09/21/16 09/22/16 09/22/16 Range/Units 20:59 07:19 08:23 WBC (3.8-10.6) k/uL Neutrophils # 8.1 H (1.3-7.7) k/uL Lymphocytes # 0.7 L (1.0-4.8) k/uL Sodium (137-145) mmol/L Creatinine (0.66-1.25) mg/dL Glucose (74-99) mg/dL POC Glucose (mg/dL) 106 H 122 H (75-99) mg/dL 09/22/16 09/22/16 Range/Units 08:23 11:50 WBC (3.8-10.6) k/uL Neutrophils # (1.3-7.7) k/uL Lymphocytes # (1.0-4.8) k/uL Sodium (137-145) mmol/L Creatinine 0.54 L (0.66-1.25) mg/dL Glucose 115 H (74-99) mg/dL POC Glucose (mg/dL) 107 H (75-99) mg/dL Assessment and Plan Plan: 1. Acute hypoxic hypercarbic respiratory failure secondary to Acute COPD exacerbation with bilateral pneumonia, possibly gram-negative due to severe sepsis. 2. [Right upper lobe cavitary lesion, possibly due to aspiration versus aspergilloma]. 3. Pleural effusion greater on right than left, status post thoracentesis]. 4. [Emphysema]. 5. [Elevated d-dimer without evidence of pulmonary embolism]. 6. [Hypovolemic hyponatremia, resolved]. 7. [Lactic acidosis secondary to sepsis]. 8. Continued ongoing nicotine dependence Plan: Continue on current medication regime, antibiotics, nebulized bronchodilators, steroids, monitoring and symptomatic treatment. No bronchoscopy at this time; Pleural cytology pending. Antibiotics as per infectious disease. PT /OT and social work consulted for potential ECF rehab. Further recommendations to follow. The impression and plan of care has been dictated as directed. : I performed a H&P examination of this patient and discussed the same with the dictator. I agree with the dictator's note. Any additional findings/opinions/ etc. will be noted.
[2016-09-22 16:47] LABS: RBC, Body Fluid 2895 /uL
[2016-09-22 17:13] LABS: Glucose,Whole Blood 137 mg/dL (75-99)
--- NOTE | 2016-09-22 18:26 | PN ---
DATE OF SERVICE: 09/22/2016. HISTORY OF PRESENT ILLNESS: The patient is a 65-year-old status post thoracentesis at this time and they did take off about 1.2 liters. He is having a productive cough. Still tenacious, dark, black to brown, yellow sputum. He does complain of some pain. He has had no nausea, vomiting or diarrhea at this time. He initially was admitted to the hospital with shortness of breath, cough, and not feeling well in general with acute hypoxic respiratory failure and cavitary type lesion versus aspiration and aspergillosis. On physical examination, vital signs show temperature 97.6, heart rate 96, respiratory rate 18, blood pressure is 119/69, oxygen saturation on 4 liters 96%. LABS: WBC is 9.4, hemoglobin 15, hematocrit 44.9. Platelets were 219, PT 11, INR is 1.1. Sodium is 137, creatinine 4.2, chloride 101, carbon dioxide 25, BUN 9, creatinine 0.54. Glucose 107, calcium 9. Sputum culture is pending. Blood cultures with no growth so far. GENERAL: He is a 65-year-old male appears relatively comfortable at this time. HEENT: Pupils are reactive. Mucous membranes are moist. NECK: Supple. Trach is midline. Lung sounds diminished. A few wheezes. CARDIOVASCULAR: S1 and S2 heard. ABDOMEN: Soft. Bowel sounds are heard. EXTREMITIES: No edema. NEUROLOGIC: He is awake, alert. IMPRESSION: 1. Acute exacerbation of chronic obstructive pulmonary disease. 2. Cavitary type pneumonia, which could be aspiration versus aspergillus. 3. Pleural effusion greater on the right than left, improved with thoracentesis. No pneumothorax per x-ray. 4. Nicotine dependence. PLAN: Await thoracentesis the fluid results from culture and cytology. Increase activity as tolerated. Continue with antibiotic therapy. Medications have been reviewed. Continue with nebulizer treatments as ordered. Continue with IV steroids. We will look at decreasing dose tomorrow. Continue with GI and DVT prophylaxis. Await his sputum culture results. Labs in the morning. We will order incentive spirometer. I performed a history and physical examination of this patient and discussed the same with the dictator. I agree with the dictator's note. Any additional findings/opinions, etc. will be noted.
--- NOTE | 2016-09-22 19:30 | P.PN ---
Subjective Principal diagnosis: Shortness of breath This is a 65-year-old male. He has a past medical history of COPD. He gives history of being shortness of breath for a couple of months with occasional chills. He states he had a few drops of blood in his sputum initially but that went away. He has had weight loss of 20 pounds with loss of appetite, generalized weakness and fatigue and generalized malaise. He did not seek any treatment until he came into the ER on September 18. Chest x-ray showed multifocal pleural parenchyma. He underwent a CAT scan of the chest that showed bilateral prominence with pleural effusion greater on the right with left lower lobe consolidation and right lower lobe, right middle lobe, left upper lobe atelectasis. Right upper lobe cavitary lesion with dependent nodules suggest fungal. His pulse ox initially was 89% he has been afebrile. White count was 11.5 and improved to 7.5. D-dimer was elevated at 5.1. GFR greater than 60. Lactic acid initially 2.1 followed by 4.64. Albumin 3.7. Troponin 0.012. Patient was admitted to the intensive care unit and consult requested with pulmonary medicine as well. Patient does have history of smoking for 40+ years at least 1 pack per day or more. He also has history of alcohol abuse with 4-5 beers per day but recently had to cut back as he has not been feeling well and is now drinking one can per day. He does have service in [place] but was not exposed to agent orange. He denies any recent travel. He is currently living alone. 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 The patient relates that he is just slightly less short of breath than yesterday. He still is working very hard to breathe. He's having cough without much sputum production at the moment. No current hemoptysis. Feels very weak. Attempting to eat more because he's had weight loss. Fortunately he relates is feeling better after his thoracentesis today. Slightly less short of breath, but does have some pain at the thoracentesis site is related to somewhat surprised that it went so well. Objective - Vital Signs Vital signs: Vital Signs Temp 97.0 F L 09/22/16 15:00 Pulse 91 09/22/16 16:37 Resp 18 09/22/16 16:00 BP 108/74 09/22/16 15:00 Pulse Ox 94 L 09/22/16 16:28 Intake & Output 09/22/16 09/22/16 09/23/16 06:59 18:59 06:59 Intake Total 880 240 Output Total 553 Balance 880 -313 Weight 73 kg Intake: IV 880 Sodium Chloride 0.9% 1, 880 000 ml @ 80 mls/hr IV . [id number] JANE[facility] Rx#:[id number] Oral 240 Output: Urine 550 Stool 3 Other: Voiding Method Urinal Urinal # Voids 2 1 # Bowel Movements 0 - Exam Gen: This is a thin 65-year-old male. Seems less short of breath. Coughs occasionally. Remains very distinctly unhappy that he is ill and hospitalized but understands the reasoning. HEENT: Head is atraumatic, normocephalic. Pupils equal, round. Sclerae is anicteric. Oral mucous membranes are dry. Dentition is in poor order and patient has only a few teeth left. No thrush noted. NECK: Supple. No JVD. No lymphadenopathy. No thyromegaly. LUNGS: Coarse crackles throughout with occasional scattered expiratory wheeze. Moderate intercostal retractions. Patient has i There is improved aeration to the right mid to lower posterior lung field dyspnea with minimal exertion. HEART: Regular rate and rhythm. No murmur. ABDOMEN: Soft. Bowel sounds are present. No masses. No tenderness. EXTREMITIES: No pedal edema. No calf tenderness. Dorsalis pedis +2 bilaterally. NEUROLOGICAL: Patient is awake, alert and oriented x3 - Labs CBC & Chem 7: 09/22/16 08:23 09/22/16 08:23 Labs: Abnormal Lab Results - Last 24 Hours (Table) 09/21/16 09/22/16 09/22/16 Range/Units 20:59 07:19 08:23 Neutrophils # 8.1 H (1.3-7.7) k/uL Lymphocytes # 0.7 L (1.0-4.8) k/uL ESR (0-15) mm/hr Creatinine (0.66-1.25) mg/dL Glucose (74-99) mg/dL POC Glucose (mg/dL) 106 H 122 H (75-99) mg/dL C-Reactive Protein (<10.0) mg/L 09/22/16 09/22/16 09/22/16 Range/Units 08:23 08:23 08:23 Neutrophils # (1.3-7.7) k/uL Lymphocytes # (1.0-4.8) k/uL ESR 28 H (0-15) mm/hr Creatinine 0.54 L (0.66-1.25) mg/dL Glucose 115 H (74-99) mg/dL POC Glucose (mg/dL) (75-99) mg/dL C-Reactive Protein 21.8 H (<10.0) mg/L 09/22/16 09/22/16 Range/Units 11:50 16:53 Neutrophils # (1.3-7.7) k/uL Lymphocytes # (1.0-4.8) k/uL ESR (0-15) mm/hr Creatinine (0.66-1.25) mg/dL Glucose (74-99) mg/dL POC Glucose (mg/dL) 107 H 137 H (75-99) mg/dL C-Reactive Protein (<10.0) mg/L Microbiology - Last 24 Hours (Table) 09/22/16 13:30 Fungal Culture - Preliminary Pleural Fluid 09/22/16 13:30 Body Fluid Culture - Preliminary Pleural Fluid Laboratory Results WBC 9.4 k/uL (3.8-10.6) 09/22/16 08:23 RBC 4.72 m/uL (4.30-5.90) 09/22/16 08:23 Hgb 15.0 gm/dL (13.0-17.5) 09/22/16 08:23 Hct 44.9 % (39.0-53.0) 09/22/16 08:23 MCV 94.9 fL (80.0-100.0) 09/22/16 08:23 MCH 31.7 pg (25.0-35.0) 09/22/16 08:23 MCHC 33.4 g/dL (31.0-37.0) 09/22/16 08:23 RDW 13.5 % (11.5-15.5) 09/22/16 08:23 Plt Count 219 k/uL (150-450) 09/22/16 08:23 Neutrophils % 86 % 09/22/16 08:23 Lymphocytes % 7 % 09/22/16 08:23 Monocytes % 5 % 09/22/16 08:23 Eosinophils % 0 % 09/22/16 08:23 Basophils % 0 % 09/22/16 08:23 Neutrophils # 8.1 k/uL (1.3-7.7) H 09/22/16 08:23 Lymphocytes # 0.7 k/uL (1.0-4.8) L 09/22/16 08:23 Monocytes # 0.5 k/uL (0-1.0) 09/22/16 08:23 Eosinophils # 0.0 k/uL (0-0.7) 09/22/16 08:23 Basophils # 0.0 k/uL (0-0.2) 09/22/16 08:23 ESR 28 mm/hr (0-15) H 09/22/16 08:23 PT 11.0 sec (9.0-12.0) 09/22/16 11:13 INR 1.1 (<1.1) 09/22/16 11:13 APTT 25.8 sec (22.0-30.0) 09/18/16 16:45 D-Dimer 5.10 mg/L FEU (<0.60) H 09/18/16 16:45 Sodium 137 mmol/L (137-145) 09/22/16 08:23 Potassium 4.2 mmol/L (3.5-5.1) 09/22/16 08:23 Chloride 101 mmol/L (98-107) 09/22/16 08:23 Carbon Dioxide 25 mmol/L (22-30) 09/22/16 08:23 Anion Gap 11 mmol/L 09/22/16 08:23 BUN 9 mg/dL (9-20) 09/22/16 08:23 Creatinine 0.54 mg/dL (0.66-1.25) L 09/22/16 08:23 Est GFR (MDRD) Af Amer >60 (>60 ml/min/1.73 sqM) 09/22/16 08:23 Est GFR (MDRD) Non-Af >60 (>60 ml/min/1.73 sqM) 09/22/16 08:23 Glucose 115 mg/dL (74-99) H 09/22/16 08:23 POC Glucose (mg/dL) 137 mg/dL (75-99) H 09/22/16 16:53 POC Glu [employer] Consultant ID Tana Mclaughlin 09/22/16 16:[address] Glu mg/dL 117 mg/dL 09/18/16 16:45 Hemoglobin A1c 5.7 % (4.2-6.1) 09/18/16 16:45 Plasma Lactic Acid Gurpreet 2.1 mmol/L (0.7-2.0) H 09/19/16 18:54 Calcium 9.0 mg/dL (8.4-10.2) 09/22/16 08:23 Phosphorus 3.2 mg/dL (2.5-4.5) 09/19/16 04:12 Magnesium 1.8 mg/dL (1.6-2.3) 09/19/16 04:12 Total Bilirubin 1.0 mg/dL (0.2-1.3) 09/18/16 16:45 AST 38 U/L (17-59) 09/18/16 16:45 ALT 33 U/L (21-72) 09/18/16 16:45 Alkaline Phosphatase 170 U/L (38-126) H 09/18/16 16:45 Total Creatine Kinase 82 U/L (55-170) 09/18/16 16:45 CK-MB (CK-2) 6.8 ng/mL (0.0-2.4) H* 09/18/16 16:45 CK-MB (CK-2) Rel Index 8.3 09/18/16 16:45 Troponin I <0.012 ng/mL (0.000-0.034) 09/18/16 16:45 C-Reactive Protein 21.8 mg/L (<10.0) H 09/22/16 08:23 NT-Pro-B Natriuret Pep 391 pg/mL 09/18/16 16:45 Total Protein 7.8 g/dL (6.3-8.2) 09/18/16 16:45 Albumin 3.7 g/dL (3.5-5.0) 09/18/16 16:45 Fluid Source Pleural 09/22/16 13:30 Fluid Appearance Cloudy 09/22/16 13:30 Fluid RBC 2895 /uL 09/22/16 13:30 Fluid Nucleated Cells 300 /uL 09/22/16 13:30 Fluid Polynuclear WBCs 2 % 09/22/16 13:30 Fluid Mononuclear WBCs 98 % 09/22/16 13:30 Vancomycin Trough <5.0 ug/mL 09/20/16 05:48 Microbiology 09/18/16 16:45 Blood Blood Culture - Preliminary No Growth after 96 hours 09/22/16 13:30 Pleural Fluid Fungal Culture - Preliminary 09/22/16 13:30 Pleural Fluid Body Fluid Culture - Preliminary 09/18/16 17:06 Sputum Gram Stain - Final 09/18/16 17:06 Sputum Sputum Culture - Final Assessment and Plan (1) Acute exacerbation of chronic obstructive airways disease Status: Acute (2) Cavitary pneumonia Narrative/Plan: He was noted that he has had cough with bloody sputum production at times. With a cavitary lung lesion. With his history of alcoholism would be concerned to tuberculosis. The patient however is now had 5 CT scans performed over the last period of time. At this time there is no evidence of any tuberculosis on any of the scans. 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 He also has an extensive effusion to the right lower lobe. Pulmonary critical care is consulted. Likely will need of sampling of the fluid for further evaluation. When more stable may also do well with bronchoscopy for sampling of that right upper lobe lesion. At this time for antimicrobial therapy for persistent on tazobactam and levofloxacin are being utilized with concerns for aspiration pneumonia, gram-negative pneumonia because of his alcoholism and very rapidly declining status. He's a move out of the ICU. He is feeling somewhat better. He still is very short of breath with any motion. Understands that he needs to eat to get respiratory treatments. Pulmonary is following. If he becomes well for bronchoscopy, would be helpful. Thoracentesis has occurred. He is now slightly less short of breath. Bronchoscopy will give sampling that will help us determine if he needs antifungal therapy. Status: Acute
--- NOTE | 2016-09-22 19:57 | PN ---
DATE OF SERVICE: 09/22/2016 This 65-year-old gentleman who was admitted with significant bilateral pneumonia also had a pleural effusion. Interventional Radiology recommended aspiration of the fluid. The patient is on broad-spectrum IV antibiotics. Cultures are pending at this time. Seen and evaluated the patient along with the nurse practitioner. Please refer to the nurse practitioner's notes and impressions documented as a scribe for further information. Infectious Disease, Dr. Ricci, is also following the patient closely. Further recommendations to follow.
[2016-09-22] MEDS: LORazepam 1 MG TAB PO PRN (20:30)
[2016-09-22 21:23] LABS: Glucose,Whole Blood 147 mg/dL (75-99)
[2016-09-22 22:13] LABS: Appearance,Urine Clear (Clear); Bilirubin,Urine Negative (Negative); Glucose,Urine (UA) Negative (Negative); Ketones,Urine Trace (Negative); Leukocyte Esterase,Urine Negative (Negative); Nitrite,Urine Negative (Negative); Protein,Urine Trace (Negative); Specific Gravity,Urine 1.024 (1.001-1.035); UA Billing (MACRO vs. MICRO) CHEM; Urobilinogen,Urine <2.0 mg/dL (<2.0)
[2016-09-23 06:48] LABS: HIV-1/HIV-2 Ab Screen NONREAC (NON REAC)
[2016-09-23] MEDS: IPRATROPIUM-ALBUTEROL 3 ML NEB INHALATION PRN ×2 (07:03→18:57)
[2016-09-23 07:36] LABS: Glucose,Whole Blood 116 mg/dL (75-99)
[2016-09-23] MEDS: INSULIN LISPRO (humaLOG) 300 UNIT/3 ML VIAL SQ SCH ×4 (08:15→21:24)
[2016-09-23] MEDS: PIPERACILLIN-TAZOBACTAM 3.375 GM in DEXTROSE/WATER 1 50ML.BAG IVPB SCH ×3 (08:15→23:44)
[2016-09-23] MEDS: ENOXAPARIN 40 MG/0.4 ML SYRINGE SQ SCH ×2 (08:15→08:20)
[2016-09-23] MEDS: methylPREDNISolone SOD SUCCI 40 MG/ML 1 ML VIAL IV SCH ×3 (08:15→23:44)
[2016-09-23] MEDS: FAMOTIDINE 20 MG TAB PO SCH ×2 (08:15→21:15)
[2016-09-23] MEDS: LEVOFLOXACIN 750 MG TAB PO SCH (08:15)
[2016-09-23] MEDS: SODIUM CHLORIDE 0.9% 1,000 ML IV SCH ×2 (08:16→21:14)
[2016-09-23 09:52] LABS: Basophils % (A) 0 %; CH 32.3; CHCM 33.9; Eosinophils % (A) 0 %; HCT 45.2 % (39.0-53.0); HDW 2.84; HGB 14.5 gm/dL (13.0-17.5); Luc # (Auto) 0.05; Luc % (Auto) 1; Lymphocytes # (A) 0.7 k/uL (1.0-4.8); Lymphocytes % (A) 9 %; MCH 30.7 pg (25.0-35.0); MCHC 32.1 g/dL (31.0-37.0); MCV 95.9 fL (80.0-100.0); Mean Platelet Volume 7.5; Monocytes # (A) 0.4 k/uL (0-1.0); Monocytes % (A) 5 %; Neutrophils % (A) 85 %; RBC 4.71 m/uL (4.30-5.90); RDW 13.5 % (11.5-15.5); WBC 8.2 k/uL (3.8-10.6); WBC (Perox) 8.12
[2016-09-23 10:14] LABS: Anion Gap 12 mmol/L; Blood Urea Nitrogen 12 mg/dL (9-20); Carbon Dioxide 24 mmol/L (22-30); Chloride 100 mmol/L (98-107); Glucose 147 mg/dL (74-99); Non-African American GFR(MDRD) >60 (>60 ml/min/1.73 sqM); Sodium 136 mmol/L (137-145)
--- NOTE | 2016-09-23 12:08 | PN ---
DATE OF SERVICE: 09/23/2016 He is less short of breath. He has less cough today. On physical examination, his respiratory rate is 20, pulse rate of 82, temperature 96.8, blood pressure 112/66, O2 sat on 4 L by nasal cannula is 94%. HEENT reveals pupils are equal. No jugular venous distention. Chest reveals decreased breath sounds at the left base. Right base is fair air entry with occasional crackles. Cardiovascular system is S1 and S2. Abdomen is soft. There is no pedal edema. Pleural fluid showed only to polynuclear WBCs with 98 mononuclear WBCs. Fluid chemistry and cytology are pending at this time. IMPRESSION: 1. Pneumonia, possibly due to aspiration. 2. Right upper lobe cavitary lesion which may be due to aspergillus versus other etiology. 3. Medical debility. 4. Chronic obstructive pulmonary disease, emphysematous type. At this point in time, from a pulmonary standpoint, would await cultures from the fluid, would schedule him for bronchoscopy for further evaluation per recommendations of ID with plan for BAL in the right upper lobe. Patient was counseled regarding his condition and this approach and he was scheduled for a bronchoscopy tomorrow. Continue him on his other medications at this time including antibiotics, steroids, bronchodilators.
[2016-09-23 12:11] LABS: Glucose,Whole Blood 86 mg/dL (75-99)
[2016-09-23] MEDS: ACETAMINOPHEN TAB 325 MG TAB PO PRN (13:27)
[2016-09-23] MEDS: THIAMINE 100 MG TAB PO SCH ×2 (13:28→17:05)
[2016-09-23 17:00] LABS: Glucose,Whole Blood 105 mg/dL (75-99)
[2016-09-23 21:14] LABS: Glucose,Whole Blood 133 mg/dL (75-99)
--- NOTE | 2016-09-23 21:48 | P.PN ---
Subjective Date of service 09/23/2016 Progress note being dictated for Dr. Finley. Interval history: This is a 65-year-old gentleman admitted with acute COPD exacerbation, cavitary pneumonia, pleural effusions, status post thoracentesis and multiple other medical issues. Pleural cytology pending. Occasional nonproductive cough. Shortness of breath improving. Scheduled for bronchoscopy with biopsy of right upper lung lesion tomorrow.Maintained on Levaquin and Zosyn as per ID. Afebrile, maintaining O2 sats of 96% on 4 L nasal cannula. Objective - Vital Signs Vital signs: Vital Signs Temp 97.6 F 09/23/16 15:07 Pulse 85 09/23/16 19:09 Resp 18 09/23/16 16:44 BP 109/75 09/23/16 15:07 Pulse Ox 96 09/23/16 15:07 Intake & Output 09/23/16 09/23/16 09/24/16 06:59 18:59 06:59 Intake Total 880 240 Output Total 700 1 Balance 180 239 Intake: IV 880 Sodium Chloride 0.9% 1, 880 000 ml @ 80 mls/hr IV . [id number] [facility] Rx#:[id number] Oral 240 Output: Urine 700 Stool 1 Other: Voiding Method Toilet Toilet # Voids 1 2 - Exam PHYSICAL EXAM: VITAL SIGNS: As above GENERAL: [Sitting up in bed, no acute distress] HEENT: [Pupils equal conjunctiva normal.] NECK: [Supple, no JVD] RESPIRATORY EFFORT:[Normal] LUNGS: [Diminished, scattered rhonchi, occasional fine rate basilar crackles] CARDIOVASCULAR[regular S1 and S2, no edema] GI: [Abdomen soft, nontender, positive bowel sounds.] PSYCH: [Alert and oriented -3, mood and affect normal.] NEURO: No focal deficits Microbiology 09/18/16 16:45 Blood Blood Culture - Preliminary No Growth after 120 hours 09/22/16 13:30 Pleural Fluid Gram Stain - Preliminary 09/22/16 13:30 Pleural Fluid Body Fluid Culture - Preliminary 09/22/16 13:30 Pleural Fluid Anaerobic Culture - Preliminary 09/22/16 13:30 Pleural Fluid Fungal Culture - Preliminary 09/18/16 17:06 Sputum Gram Stain - Final 09/18/16 17:06 Sputum Sputum Culture - Final - Labs CBC & Chem 7: 09/23/16 09:00 09/23/16 09:00 Labs: Abnormal Lab Results - Last 24 Hours (Table) 09/22/16 09/23/16 09/23/16 Range/Units 22:00 07:24 09:00 Lymphocytes # 0.7 L (1.0-4.8) k/uL Sodium (137-145) mmol/L Creatinine (0.66-1.25) mg/dL Glucose (74-99) mg/dL POC Glucose (mg/dL) 116 H (75-99) mg/dL Urine Protein Trace H (Negative) Urine Ketones Trace H (Negative) 09/23/16 09/23/16 09/23/16 Range/Units 09:00 16:59 20:44 Lymphocytes # (1.0-4.8) k/uL Sodium 136 L (137-145) mmol/L Creatinine 0.52 L (0.66-1.25) mg/dL Glucose 147 H (74-99) mg/dL POC Glucose (mg/dL) 105 H 133 H (75-99) mg/dL Urine Protein (Negative) Urine Ketones (Negative) Microbiology - Last 24 Hours (Table) 09/22/16 13:30 Gram Stain - Preliminary Pleural Fluid Body Fluid Culture - Preliminary 09/22/16 13:30 Anaerobic Culture - Preliminary Pleural Fluid 09/22/16 13:30 Fungal Culture - Preliminary Pleural Fluid Assessment and Plan Plan: 1. Acute hypoxic hypercarbic respiratory failure secondary to Acute COPD exacerbation with bilateral pneumonia, possibly gram-negative due to severe sepsis. 2. [Right upper lobe cavitary lesion, possibly due to aspiration versus aspergilloma]. Bronchoscopy pending 3. Pleural effusion greater on right than left, status post thoracentesis]. Cytology pending 4. [Emphysema]. 5. [Elevated d-dimer without evidence of pulmonary embolism]. 6. [Hypovolemic hyponatremia, resolved]. 7. [Lactic acidosis secondary to sepsis]. 8. Continued ongoing nicotine dependence Plan: Continue on current medication regime, antibiotics, nebulized bronchodilators, steroids, monitoring and symptomatic treatment. Pleural cytology pending. Bronchoscopy with biopsy scheduled for tomorrow regarding right upper lobe lesion. Antibiotics as per infectious disease. Titrate oxygen , patient currently 96% on 4 L nasal cannula. PT /OT.Further recommendations to follow. . The impression and plan of care has been dictated as directed. : I performed a H&P examination of this patient and discussed the same with the dictator. I agree with the dictator's note. Any additional findings/opinions/ etc. will be noted.
--- NOTE | 2016-09-23 21:57 | P.PN ---
Subjective Principal diagnosis: Shortness of breath This is a 65-year-old male. He has a past medical history of COPD. He gives history of being shortness of breath for a couple of months with occasional chills. He states he had a few drops of blood in his sputum initially but that went away. He has had weight loss of 20 pounds with loss of appetite, generalized weakness and fatigue and generalized malaise. He did not seek any treatment until he came into the ER on September 18. Chest x-ray showed multifocal pleural parenchyma. He underwent a CAT scan of the chest that showed bilateral prominence with pleural effusion greater on the right with left lower lobe consolidation and right lower lobe, right middle lobe, left upper lobe atelectasis. Right upper lobe cavitary lesion with dependent nodules suggest fungal. His pulse ox initially was 89% he has been afebrile. White count was 11.5 and improved to 7.5. D-dimer was elevated at 5.1. GFR greater than 60. Lactic acid initially 2.1 followed by 4.64. Albumin 3.7. Troponin 0.012. Patient was admitted to the intensive care unit and consult requested with pulmonary medicine as well. Patient does have history of smoking for 40+ years at least 1 pack per day or more. He also has history of alcohol abuse with 4-5 beers per day but recently had to cut back as he has not been feeling well and is now drinking one can per day. He does have service in [place] but was not exposed to agent orange. He denies any recent travel. He is currently living alone. 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 The patient relates that he is just slightly less short of breath than yesterday. He still is working very hard to breathe. He's having cough without much sputum production at the moment. No current hemoptysis. Feels very weak. Attempting to eat more because he's had weight loss. Fortunately he relates is feeling better after his thoracentesis . Slightly less short of breath, but does have some pain at the thoracentesis site is related to somewhat surprised that it went so well. Is anxious but is accepting the need for bronchoscopy tomorrow Objective - Vital Signs Vital signs: Vital Signs Temp 97.6 F 09/23/16 15:07 Pulse 85 09/23/16 19:09 Resp 18 09/23/16 16:44 BP 109/75 09/23/16 15:07 Pulse Ox 96 09/23/16 15:07 Intake & Output 09/23/16 09/23/16 09/24/16 06:59 18:59 06:59 Intake Total 880 240 Output Total 700 1 Balance 180 239 Intake: IV 880 Sodium Chloride 0.9% 1, 880 000 ml @ 80 mls/hr IV . [id number] JANEY Rx#:[id number] Oral 240 Output: Urine 700 Stool 1 Other: Voiding Method Toilet Toilet # Voids 1 2 - Exam Gen: This is a thin 65-year-old male. Seems less short of breath. Coughs occasionally. Remains very distinctly unhappy that he is ill and hospitalized but understands the reasoning. HEENT: Head is atraumatic, normocephalic. Pupils equal, round. Sclerae is anicteric. Oral mucous membranes are dry. Dentition is in poor order and patient has only a few teeth left. No thrush noted. NECK: Supple. No JVD. No lymphadenopathy. No thyromegaly. LUNGS: Coarse crackles throughout with occasional scattered expiratory wheeze. Moderate intercostal retractions. Patient has i There is improved aeration to the right mid to lower posterior lung field dyspnea with minimal exertion. HEART: Regular rate and rhythm. No murmur. ABDOMEN: Soft. Bowel sounds are present. No masses. No tenderness. EXTREMITIES: No pedal edema. No calf tenderness. Dorsalis pedis +2 bilaterally. NEUROLOGICAL: Patient is awake, alert and oriented x3 - Labs CBC & Chem 7: 09/23/16 09:00 09/23/16 09:00 Labs: Abnormal Lab Results - Last 24 Hours (Table) 09/22/16 09/23/16 09/23/16 Range/Units 22:00 07:24 09:00 Lymphocytes # 0.7 L (1.0-4.8) k/uL Sodium (137-145) mmol/L Creatinine (0.66-1.25) mg/dL Glucose (74-99) mg/dL POC Glucose (mg/dL) 116 H (75-99) mg/dL Urine Protein Trace H (Negative) Urine Ketones Trace H (Negative) 09/23/16 09/23/16 09/23/16 Range/Units 09:00 16:59 20:44 Lymphocytes # (1.0-4.8) k/uL Sodium 136 L (137-145) mmol/L Creatinine 0.52 L (0.66-1.25) mg/dL Glucose 147 H (74-99) mg/dL POC Glucose (mg/dL) 105 H 133 H (75-99) mg/dL Urine Protein (Negative) Urine Ketones (Negative) Microbiology - Last 24 Hours (Table) 09/22/16 13:30 Gram Stain - Preliminary Pleural Fluid Body Fluid Culture - Preliminary 09/22/16 13:30 Anaerobic Culture - Preliminary Pleural Fluid 09/22/16 13:30 Fungal Culture - Preliminary Pleural Fluid Laboratory Results WBC 8.2 k/uL (3.8-10.6) 09/23/16 09:00 RBC 4.71 m/uL (4.30-5.90) 09/23/16 09:00 Hgb 14.5 gm/dL (13.0-17.5) 09/23/16 09:00 Hct 45.2 % (39.0-53.0) 09/23/16 09:00 MCV 95.9 fL (80.0-100.0) 09/23/16 09:00 MCH 30.7 pg (25.0-35.0) 09/23/16 09:00 MCHC 32.1 g/dL (31.0-37.0) 09/23/16 09:00 RDW 13.5 % (11.5-15.5) 09/23/16 09:00 Plt Count 193 k/uL (150-450) 09/23/16 09:00 Neutrophils % 85 % 09/23/16 09:00 Lymphocytes % 9 % 09/23/16 09:00 Monocytes % 5 % 09/23/16 09:00 Eosinophils % 0 % 09/23/16 09:00 Basophils % 0 % 09/23/16 09:00 Neutrophils # 7.0 k/uL (1.3-7.7) 09/23/16 09:00 Lymphocytes # 0.7 k/uL (1.0-4.8) L 09/23/16 09:00 Monocytes # 0.4 k/uL (0-1.0) 09/23/16 09:00 Eosinophils # 0.0 k/uL (0-0.7) 09/23/16 09:00 Basophils # 0.0 k/uL (0-0.2) 09/23/16 09:00 ESR 28 mm/hr (0-15) H 09/22/16 08:23 PT 11.0 sec (9.0-12.0) 09/22/16 11:13 INR 1.1 (<1.1) 09/22/16 11:13 APTT 25.8 sec (22.0-30.0) 09/18/16 16:45 D-Dimer 5.10 mg/L FEU (<0.60) H 09/18/16 16:45 Sodium 136 mmol/L (137-145) L 09/23/16 09:00 Potassium 4.0 mmol/L (3.5-5.1) 09/23/16 09:00 Chloride 100 mmol/L (98-107) 09/23/16 09:00 Carbon Dioxide 24 mmol/L (22-30) 09/23/16 09:00 Anion Gap 12 mmol/L 09/23/16 09:00 BUN 12 mg/dL (9-20) 09/23/16 09:00 Creatinine 0.52 mg/dL (0.66-1.25) L 09/23/16 09:00 Est GFR (MDRD) Af Amer >60 (>60 ml/min/1.73 sqM) 09/23/16 09:00 Est GFR (MDRD) Non-Af >60 (>60 ml/min/1.73 sqM) 09/23/16 09:00 Glucose 147 mg/dL (74-99) H 09/23/16 09:00 POC Glucose (mg/dL) 133 mg/dL (75-99) H 09/23/16 20:44 POC Glu [facility] Associate ID Matilde Chris 09/23/16 20:[address] Glu mg/dL 117 mg/dL 09/18/16 16:45 Hemoglobin A1c 5.7 % (4.2-6.1) 09/18/16 16:45 Plasma Lactic Acid Gurpreet 2.1 mmol/L (0.7-2.0) H 09/19/16 18:54 Calcium 9.0 mg/dL (8.4-10.2) 09/23/16 09:00 Phosphorus 3.2 mg/dL (2.5-4.5) 09/19/16 04:12 Magnesium 1.8 mg/dL (1.6-2.3) 09/19/16 04:12 Total Bilirubin 1.0 mg/dL (0.2-1.3) 09/18/16 16:45 AST 38 U/L (17-59) 09/18/16 16:45 ALT 33 U/L (21-72) 09/18/16 16:45 Alkaline Phosphatase 170 U/L (38-126) H 09/18/16 16:45 Total Creatine Kinase 82 U/L (55-170) 09/18/16 16:45 CK-MB (CK-2) 6.8 ng/mL (0.0-2.4) H* 09/18/16 16:45 CK-MB (CK-2) Rel Index 8.3 09/18/16 16:45 Troponin I <0.012 ng/mL (0.000-0.034) 09/18/16 16:45 C-Reactive Protein 21.8 mg/L (<10.0) H 09/22/16 08:23 NT-Pro-B Natriuret Pep 391 pg/mL 09/18/16 16:45 Total Protein 7.8 g/dL (6.3-8.2) 09/18/16 16:45 Albumin 3.7 g/dL (3.5-5.0) 09/18/16 16:45 Urine Color Yellow 09/22/16 22:00 Urine Appearance Clear (Clear) 09/22/16 22:00 Urine pH 6.0 (5.0-8.0) 09/22/16 22:00 Ur Specific [place] 1.024 (1.001-1.035) 09/22/16 22:00 Urine Protein Trace (Negative) H 09/22/16 22:00 Urine Glucose (UA) Negative (Negative) 09/22/16 22:00 Urine Ketones Trace (Negative) H 09/22/16 22:00 Urine Blood Negative (Negative) 09/22/16 22:00 Urine Nitrate Negative (Negative) 09/22/16 22:00 Urine Bilirubin Negative (Negative) 09/22/16 22:00 Urine Urobilinogen <2.0 mg/dL (<2.0) 09/22/16 22:00 Ur Leukocyte Esterase Negative (Negative) 09/22/16 22:00 Fluid Source Pleural 09/22/16 13:30 Fluid Appearance Cloudy 09/22/16 13:30 Fluid RBC 2895 /uL 09/22/16 13:30 Fluid Nucleated Cells 300 /uL 09/22/16 13:30 Fluid Polynuclear WBCs 2 % 09/22/16 13:30 Fluid Mononuclear WBCs 98 % 09/22/16 13:30 Vancomycin Trough <5.0 ug/mL 09/20/16 05:48 HIV-1 Ab Supplemental TNP 09/22/16 08:23 HIV-2 Ab Supplemental TNP 09/22/16 08:23 HIV 1&2 Ag/Ab, 4th Gen NONREAC (NON REAC) 09/22/16 08:23 Microbiology 09/18/16 16:45 Blood Blood Culture - Preliminary No Growth after 120 hours 09/22/16 13:30 Pleural Fluid Gram Stain - Preliminary 09/22/16 13:30 Pleural Fluid Body Fluid Culture - Preliminary 09/22/16 13:30 Pleural Fluid Anaerobic Culture - Preliminary 09/22/16 13:30 Pleural Fluid Fungal Culture - Preliminary 09/18/16 17:06 Sputum Gram Stain - Final 09/18/16 17:06 Sputum Sputum Culture - Final Assessment and Plan (1) Acute exacerbation of chronic obstructive airways disease Status: Acute (2) Cavitary pneumonia Narrative/Plan: He was noted that he has had cough with bloody sputum production at times. With a cavitary lung lesion. With his history of alcoholism would be concerned to tuberculosis. The patient however is now had 5 CT scans performed over the last period of time. At this time there is no evidence of any tuberculosis on any of the scans. 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 He also has an extensive effusion to the right lower lobe. Pulmonary critical care is consulted. Likely will need of sampling of the fluid for further evaluation. When more stable may also do well with bronchoscopy for sampling of that right upper lobe lesion. At this time for antimicrobial therapy for persistent on tazobactam and levofloxacin are being utilized with concerns for aspiration pneumonia, gram-negative pneumonia because of his alcoholism and very rapidly declining status. He's a move out of the ICU. He is feeling somewhat better. He still is very short of breath with any motion. Understands that he needs to eat to get respiratory treatments. Pulmonary is following. If he becomes well for bronchoscopy, would be helpful. Thoracentesis has occurred. He is now slightly less short of breath. Samples from the pleural space remain negative at this time as far as bacteria and fungus. Bronchoscopy will give sampling that will help us determine if he needs antifungal therapy. HIV testing was negative. Status: Acute
[2016-09-24 07:38] LABS: Glucose,Whole Blood 105 mg/dL (75-99)
--- NOTE | 2016-09-24 08:19 | PN ---
DATE OF SERVICE: 09/23/2016 This 65-year-old gentleman who was admitted with significant acute respiratory failure, chronic obstructive pulmonary disease as well as pneumonia also had lesion. Seen and evaluated the patient along with nurse practitioner. Please refer to the nurse practitioner notes and impression documented as a scribe for further information. Possible BAL per pulmonology. Guarded prognosis. Further recommendations to follow. MTDD
[2016-09-24] MEDS: INSULIN LISPRO (humaLOG) 300 UNIT/3 ML VIAL SQ SCH ×4 (08:37→21:37)
[2016-09-24] MEDS: methylPREDNISolone SOD SUCCI 40 MG/ML 1 ML VIAL IV SCH ×3 (08:39→23:44)
[2016-09-24] MEDS: PIPERACILLIN-TAZOBACTAM 3.375 GM in DEXTROSE/WATER 1 50ML.BAG IVPB SCH ×3 (08:40→23:44)
[2016-09-24] MEDS: IPRATROPIUM-ALBUTEROL 3 ML NEB INHALATION PRN ×4 (08:40→19:33)
[2016-09-24] MEDS: FAMOTIDINE 20 MG TAB PO SCH (08:40)
[2016-09-24] MEDS: LEVOFLOXACIN 750 MG TAB PO SCH (08:40)
[2016-09-24 08:48] LABS: Basophils % (A) 0 %; CHCM 32.9; Eosinophils % (A) 0 %; HCT 45.3 % (39.0-53.0); HDW 2.81; HGB 14.5 gm/dL (13.0-17.5); Luc # (Auto) 0.09; Luc % (Auto) 1; Lymphocytes # (A) 0.7 k/uL (1.0-4.8); Lymphocytes % (A) 8 %; MCH 31.2 pg (25.0-35.0); MCHC 31.9 g/dL (31.0-37.0); MCV 97.8 fL (80.0-100.0); Mean Platelet Volume 7.5; Monocytes # (A) 0.5 k/uL (0-1.0); Monocytes % (A) 5 %; Neutrophils # (A) 7.8 k/uL (1.3-7.7); Neutrophils % (A) 86 %; RBC 4.64 m/uL (4.30-5.90); RDW 13.5 % (11.5-15.5); WBC 9.1 k/uL (3.8-10.6); WBC (Perox) 8.79
[2016-09-24 08:54] LABS: Anion Gap 10 mmol/L; Blood Urea Nitrogen 14 mg/dL (9-20); Carbon Dioxide 24 mmol/L (22-30); Chloride 100 mmol/L (98-107); Glucose 105 mg/dL (74-99); Non-African American GFR(MDRD) >60 (>60 ml/min/1.73 sqM); Potassium 4.4 mmol/L (3.5-5.1); Sodium 134 mmol/L (137-145)
--- NOTE | 2016-09-24 09:28 | PN ---
DATE OF SERVICE: 09/24/2016 He is doing slightly better overall. The bronchoscopy had not been scheduled this morning, it was supposed to be at 8:00. Subsequently, it has been rescheduled at this time. On physical examination, his blood pressure is 127/75, respiratory rate of 18, pulse rate of 75, temperature 98.1, O2 sat on 2 L by nasal cannula is 94%. HEENT is unremarkable. Chest reveals occasional rhonchi. Cardiovascular system reveals an S1, S2. Abdomen is soft. There is no pedal edema. IMPRESSION: 1. Pneumonia, aspiration-type is likely. 2. Possible fungal etiology to right upper lobe cavitary area. 3. Status post thoracentesis with transudative effusion. At this point in time, would continue antibiotics per ID. Hold Lovenox tomorrow. Consider a bronchoscopy tomorrow morning. Depending on how he does, we shall make further changes to his care.
[2016-09-24] MEDS ORDERED: MAG HYDROX/AL HYDROX/SIMETH 30 ML CUP PO PRN (11:24)
[2016-09-24 12:13] LABS: Glucose,Whole Blood 157 mg/dL (75-99)
[2016-09-24] MEDS: PANTOPRAZOLE 40 MG/10 ML VIAL IVP SCH (12:16)
[2016-09-24] MEDS: THIAMINE 100 MG TAB PO SCH ×2 (12:21→17:32)
[2016-09-24] MEDS: SODIUM CHLORIDE 0.9% 1,000 ML IV SCH ×2 (12:21→21:38)
--- NOTE | 2016-09-24 16:48 | P.PN ---
Subjective Date of service 09/24/2016 Progress note being dictated for Dr. Finley. Interval history: This is a 65-year-old gentleman admitted with acute COPD exacerbation, cavitary pneumonia, pleural effusions, status post thoracentesis and multiple other medical issues. Recent chest x-ray reporting continued extensive pleural personal opacity's cavitation in the right upper lobe, bilateral pleural effusions.Bronchoscopy with biopsy of right upper lung lesion tomorrow.Maintained on Levaquin and Zosyn as per ID. Afebrile, maintaining O2 sats of 96% on 2 L nasal cannula. Declining physical therapy. Objective - Vital Signs Vital signs: Vital Signs Temp 98.3 F 09/24/16 15:00 Pulse 86 09/24/16 15:24 Resp 18 09/24/16 15:00 BP 115/71 09/24/16 15:00 Pulse Ox 96 09/24/16 15:00 Intake & Output 09/23/16 09/24/16 09/24/16 18:59 06:59 18:59 Intake Total 240 400 530 Output Total 1 151 Balance 239 400 379 Intake: Intake, IV Titration 50 Amount Piperacillin-Tazobactam 3 50 .375 gm In Dextrose/Water 1 50ml.bag @ 12.5 mls/hr IVPB Q8HR JANEY Rx#: [id number] Oral 240 400 480 Output: Urine 150 Stool 1 1 Other: Voiding Method Toilet Toilet Urinal # Voids 2 1 1 # Bowel Movements 1 - Exam PHYSICAL EXAM: VITAL SIGNS: As above GENERAL: [Sitting up in bed, no acute distress] HEENT: [Pupils equal conjunctiva normal.] NECK: [Supple, no JVD] RESPIRATORY EFFORT:[Normal] LUNGS: [Diminished, scattered rhonchi CARDIOVASCULAR[regular S1 and S2, no edema] GI: [Abdomen soft, nontender, positive bowel sounds.] PSYCH: [Alert and oriented -3, mood and affect normal.] NEURO: No focal deficits Microbiology 09/22/16 13:30 Pleural Fluid Gram Stain - Preliminary 09/22/16 13:30 Pleural Fluid Body Fluid Culture - Preliminary 09/18/16 16:45 Blood Blood Culture - Preliminary No Growth after 120 hours 09/22/16 13:30 Pleural Fluid Anaerobic Culture - Preliminary 09/22/16 13:30 Pleural Fluid Fungal Culture - Preliminary 09/18/16 17:06 Sputum Gram Stain - Final 09/18/16 17:06 Sputum Sputum Culture - Final - Labs CBC & Chem 7: 09/24/16 07:53 09/24/16 07:53 Labs: Abnormal Lab Results - Last 24 Hours (Table) 09/23/16 09/23/16 09/24/16 Range/Units 16:59 20:44 07:36 Neutrophils # (1.3-7.7) k/uL Lymphocytes # (1.0-4.8) k/uL Sodium (137-145) mmol/L Creatinine (0.66-1.25) mg/dL Glucose (74-99) mg/dL POC Glucose (mg/dL) 105 H 133 H 105 H (75-99) mg/dL 09/24/16 09/24/16 09/24/16 Range/Units 07:53 07:53 12:11 Neutrophils # 7.8 H (1.3-7.7) k/uL Lymphocytes # 0.7 L (1.0-4.8) k/uL Sodium 134 L (137-145) mmol/L Creatinine 0.51 L (0.66-1.25) mg/dL Glucose 105 H (74-99) mg/dL POC Glucose (mg/dL) 157 H (75-99) mg/dL Microbiology - Last 24 Hours (Table) 09/22/16 13:30 Gram Stain - Preliminary Pleural Fluid Body Fluid Culture - Preliminary Assessment and Plan Plan: 1. Acute hypoxic hypercarbic respiratory failure secondary to Acute COPD exacerbation with bilateral pneumonia, possibly gram-negative due to severe sepsis. 2. [Right upper lobe cavitary lesion, possibly due to aspiration versus aspergilloma]. Bronchoscopy pending 3. Pleural effusion greater on right than left, status post thoracentesis- transudative]. Cytology pending 4. [Emphysema]. 5. [Elevated d-dimer without evidence of pulmonary embolism]. 6. [Hypovolemic hyponatremia]. 7. [Lactic acidosis secondary to sepsis]. 8. Continued ongoing nicotine dependence Plan: Continue on current medication regime, antibiotics, nebulized bronchodilators, steroids, monitoring and symptomatic treatment. PT OT/ encourage participation with. Pleural cytology pending. Bronchoscopy with biopsy scheduled for tomorrow regarding right upper lobe lesion. Antibiotics as per infectious disease. Further recommendations to follow. . The impression and plan of care has been dictated as directed. : I performed a H&P examination of this patient and discussed the same with the dictator. I agree with the dictator's note. Any additional findings/opinions/ etc. will be noted.
[2016-09-24 17:09] LABS: Glucose,Whole Blood 112 mg/dL (75-99)
[2016-09-24] MEDS: BENZOCAINE/MENTHOL LOZENG 1 EACH LOZENGE MUCOUS MEM PRN (17:32)
[2016-09-24] MEDS: LORazepam 1 MG TAB PO PRN (18:37)
[2016-09-24] MEDS: ACETAMINOPHEN TAB 325 MG TAB PO PRN (18:37)
--- NOTE | 2016-09-24 19:57 | PN ---
DATE OF SERVICE: 09/24/2016 This 65-year-old gentleman who was admitted with acute hypoxic hypercarbic respiratory failure also had cavitary lesions and pneumonia. Seen and evaluated the patient along with the nurse practitioner, please see the nurse practitioner's notes and impression and documentation for further information. Aspiration pneumonia is considered. Bronchoscopy is planned tomorrow by pulmonology, Dr. Yenifer Phipps. Further recommendations to follow.
[2016-09-24 21:11] LABS: Glucose,Whole Blood 144 mg/dL (75-99)
--- NOTE | 2016-09-24 23:29 | P.PN ---
Subjective Principal diagnosis: Shortness of breath This is a 65-year-old male. He has a past medical history of COPD. He gives history of being shortness of breath for a couple of months with occasional chills. He states he had a few drops of blood in his sputum initially but that went away. He has had weight loss of 20 pounds with loss of appetite, generalized weakness and fatigue and generalized malaise. He did not seek any treatment until he came into the ER on September 18. Chest x-ray showed multifocal pleural parenchyma. He underwent a CAT scan of the chest that showed bilateral prominence with pleural effusion greater on the right with left lower lobe consolidation and right lower lobe, right middle lobe, left upper lobe atelectasis. Right upper lobe cavitary lesion with dependent nodules suggest fungal. His pulse ox initially was 89% he has been afebrile. White count was 11.5 and improved to 7.5. D-dimer was elevated at 5.1. GFR greater than 60. Lactic acid initially 2.1 followed by 4.64. Albumin 3.7. Troponin 0.012. Patient was admitted to the intensive care unit and consult requested with pulmonary medicine as well. Patient does have history of smoking for 40+ years at least 1 pack per day or more. He also has history of alcohol abuse with 4-5 beers per day but recently had to cut back as he has not been feeling well and is now drinking one can per day. He does have service in [place] but was not exposed to agent orange. He denies any recent travel. He is currently living alone. 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 The patient relates that he is just slightly less short of breath than yesterday. He still is working very hard to breathe. He's having cough without much sputum production at the moment. No current hemoptysis. Feels very weak. Attempting to eat more because he's had weight loss. Fortunately he relates is feeling better after his thoracentesis . Slightly less short of breath, but does have some pain at the thoracentesis site is related to somewhat surprised that it went so well. Is anxious but is accepting the need for bronchoscopy tomorrow Objective - Vital Signs Vital signs: Vital Signs Temp 98.3 F 09/24/16 15:00 Pulse 84 09/24/16 19:46 Resp 18 09/24/16 16:00 BP 115/71 09/24/16 15:00 Pulse Ox 96 09/24/16 15:00 Intake & Output 09/24/16 09/24/16 09/25/16 06:59 18:59 06:59 Intake Total 400 530 Output Total 302 Balance 400 228 Weight 73 kg Intake: Intake, IV Titration 50 Amount Piperacillin-Tazobactam 3 50 .375 gm In Dextrose/Water 1 50ml.bag @ 12.5 mls/hr IVPB Q8HR [facility] Rx#: [id number] Oral 400 480 Output: Urine 300 Stool 2 Other: Voiding Method Toilet Urinal # Voids 1 1 # Bowel Movements 1 - Exam Gen: This is a thin 65-year-old male. Seems less short of breath. Coughs occasionally. Remains very distinctly unhappy that he is ill and hospitalized but understands the reasoning. HEENT: Head is atraumatic, normocephalic. Pupils equal, round. Sclerae is anicteric. Oral mucous membranes are dry. Dentition is in poor order and patient has only a few teeth left. No thrush noted. NECK: Supple. No JVD. No lymphadenopathy. No thyromegaly. LUNGS: Coarse crackles throughout with occasional scattered expiratory wheeze. Moderate intercostal retractions. Patient has i There is improved aeration to the right mid to lower posterior lung field dyspnea with minimal exertion. HEART: Regular rate and rhythm. No murmur. ABDOMEN: Soft. Bowel sounds are present. No masses. No tenderness. EXTREMITIES: No pedal edema. No calf tenderness. Dorsalis pedis +2 bilaterally. NEUROLOGICAL: Patient is awake, alert and oriented x3 - Labs CBC & Chem 7: 09/24/16 07:53 09/24/16 07:53 Labs: Abnormal Lab Results - Last 24 Hours (Table) 09/24/16 09/24/16 09/24/16 Range/Units 07:36 07:53 07:53 Neutrophils # 7.8 H (1.3-7.7) k/uL Lymphocytes # 0.7 L (1.0-4.8) k/uL Sodium 134 L (137-145) mmol/L Creatinine 0.51 L (0.66-1.25) mg/dL Glucose 105 H (74-99) mg/dL POC Glucose (mg/dL) 105 H (75-99) mg/dL 09/24/16 09/24/16 09/24/16 Range/Units 12:11 17:07 21:09 Neutrophils # (1.3-7.7) k/uL Lymphocytes # (1.0-4.8) k/uL Sodium (137-145) mmol/L Creatinine (0.66-1.25) mg/dL Glucose (74-99) mg/dL POC Glucose (mg/dL) 157 H 112 H 144 H (75-99) mg/dL Microbiology - Last 24 Hours (Table) 09/22/16 13:30 Anaerobic Culture - Preliminary Pleural Fluid 09/22/16 13:30 Gram Stain - Preliminary Pleural Fluid Body Fluid Culture - Preliminary Laboratory Results WBC 9.1 k/uL (3.8-10.6) 09/24/16 07:53 RBC 4.64 m/uL (4.30-5.90) 09/24/16 07:53 Hgb 14.5 gm/dL (13.0-17.5) 09/24/16 07:53 Hct 45.3 % (39.0-53.0) 09/24/16 07:53 MCV 97.8 fL (80.0-100.0) 09/24/16 07:53 MCH 31.2 pg (25.0-35.0) 09/24/16 07:53 MCHC 31.9 g/dL (31.0-37.0) 09/24/16 07:53 RDW 13.5 % (11.5-15.5) 09/24/16 07:53 Plt Count 186 k/uL (150-450) 09/24/16 07:53 Neutrophils % 86 % 09/24/16 07:53 Lymphocytes % 8 % 09/24/16 07:53 Monocytes % 5 % 09/24/16 07:53 Eosinophils % 0 % 09/24/16 07:53 Basophils % 0 % 09/24/16 07:53 Neutrophils # 7.8 k/uL (1.3-7.7) H 09/24/16 07:53 Lymphocytes # 0.7 k/uL (1.0-4.8) L 09/24/16 07:53 Monocytes # 0.5 k/uL (0-1.0) 09/24/16 07:53 Eosinophils # 0.0 k/uL (0-0.7) 09/24/16 07:53 Basophils # 0.0 k/uL (0-0.2) 09/24/16 07:53 ESR 28 mm/hr (0-15) H 09/22/16 08:23 PT 11.0 sec (9.0-12.0) 09/22/16 11:13 INR 1.1 (<1.1) 09/22/16 11:13 APTT 25.8 sec (22.0-30.0) 09/18/16 16:45 D-Dimer 5.10 mg/L FEU (<0.60) H 09/18/16 16:45 Sodium 134 mmol/L (137-145) L 09/24/16 07:53 Potassium 4.4 mmol/L (3.5-5.1) 09/24/16 07:53 Chloride 100 mmol/L (98-107) 09/24/16 07:53 Carbon Dioxide 24 mmol/L (22-30) 09/24/16 07:53 Anion Gap 10 mmol/L 09/24/16 07:53 BUN 14 mg/dL (9-20) 09/24/16 07:53 Creatinine 0.51 mg/dL (0.66-1.25) L 09/24/16 07:53 Est GFR (MDRD) Af Amer >60 (>60 ml/min/1.73 sqM) 09/24/16 07:53 Est GFR (MDRD) Non-Af >60 (>60 ml/min/1.73 sqM) 09/24/16 07:53 Glucose 105 mg/dL (74-99) H 09/24/16 07:53 POC Glucose (mg/dL) 144 mg/dL (75-99) H 09/24/16 21:09 POC Glu Escalator Mechanic ID Dulce Sam 09/24/16 21:[address] Glu mg/dL 117 mg/dL 09/18/16 16:45 Hemoglobin A1c 5.7 % (4.2-6.1) 09/18/16 16:45 Plasma Lactic Acid Gurpreet 2.1 mmol/L (0.7-2.0) H 09/19/16 18:54 Calcium 9.0 mg/dL (8.4-10.2) 09/24/16 07:53 Phosphorus 3.2 mg/dL (2.5-4.5) 09/19/16 04:12 Magnesium 1.8 mg/dL (1.6-2.3) 09/19/16 04:12 Total Bilirubin 1.0 mg/dL (0.2-1.3) 09/18/16 16:45 AST 38 U/L (17-59) 09/18/16 16:45 ALT 33 U/L (21-72) 09/18/16 16:45 Alkaline Phosphatase 170 U/L (38-126) H 09/18/16 16:45 Total Creatine Kinase 82 U/L (55-170) 09/18/16 16:45 CK-MB (CK-2) 6.8 ng/mL (0.0-2.4) H* 09/18/16 16:45 CK-MB (CK-2) Rel Index 8.3 09/18/16 16:45 Troponin I <0.012 ng/mL (0.000-0.034) 09/18/16 16:45 C-Reactive Protein 21.8 mg/L (<10.0) H 09/22/16 08:23 NT-Pro-B Natriuret Pep 391 pg/mL 09/18/16 16:45 Total Protein 7.8 g/dL (6.3-8.2) 09/18/16 16:45 Albumin 3.7 g/dL (3.5-5.0) 09/18/16 16:45 Urine Color Yellow 09/22/16 22:00 Urine Appearance Clear (Clear) 09/22/16 22:00 Urine pH 6.0 (5.0-8.0) 09/22/16 22:00 Ur Specific [place] 1.024 (1.001-1.035) 09/22/16 22:00 Urine Protein Trace (Negative) H 09/22/16 22:00 Urine Glucose (UA) Negative (Negative) 09/22/16 22:00 Urine Ketones Trace (Negative) H 09/22/16 22:00 Urine Blood Negative (Negative) 09/22/16 22:00 Urine Nitrate Negative (Negative) 09/22/16 22:00 Urine Bilirubin Negative (Negative) 09/22/16 22:00 Urine Urobilinogen <2.0 mg/dL (<2.0) 09/22/16 22:00 Ur Leukocyte Esterase Negative (Negative) 09/22/16 22:00 Fluid Source Pleural 09/22/16 13:30 Fluid Appearance Cloudy 09/22/16 13:30 Fluid RBC 2895 /uL 09/22/16 13:30 Fluid Nucleated Cells 300 /uL 09/22/16 13:30 Fluid Polynuclear WBCs 2 % 09/22/16 13:30 Fluid Mononuclear WBCs 98 % 09/22/16 13:30 Vancomycin Trough <5.0 ug/mL 09/20/16 05:48 HIV-1 Ab Supplemental TNP 09/22/16 08:23 HIV-2 Ab Supplemental TNP 09/22/16 08:23 HIV 1&2 Ag/Ab, 4th Gen NONREAC (NON REAC) 09/22/16 08:23 Miscellaneous Test Rt Pleural Fld,LDH 09/22/16 13:30 Misc Test Result See Comment 09/22/16 13:30 Microbiology 09/22/16 13:30 Pleural Fluid Anaerobic Culture - Preliminary 09/18/16 16:45 Blood Blood Culture - Final No Growth after 144 hours 09/22/16 13:30 Pleural Fluid Gram Stain - Preliminary 09/22/16 13:30 Pleural Fluid Body Fluid Culture - Preliminary 09/22/16 13:30 Pleural Fluid Fungal Culture - Preliminary 09/18/16 17:06 Sputum Gram Stain - Final 09/18/16 17:06 Sputum Sputum Culture - Final Assessment and Plan (1) Acute exacerbation of chronic obstructive airways disease Status: Acute (2) Cavitary pneumonia Narrative/Plan: He was noted that he has had cough with bloody sputum production at times. With a cavitary lung lesion. With his history of alcoholism would be concerned to tuberculosis. The patient however is now had 5 CT scans performed over the last period of time. At this time there is no evidence of any tuberculosis on any of the scans. 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 He also has an extensive effusion to the right lower lobe. Pulmonary critical care is consulted. Likely will need of sampling of the fluid for further evaluation. When more stable may also do well with bronchoscopy for sampling of that right upper lobe lesion. At this time for antimicrobial therapy for persistent on tazobactam and levofloxacin are being utilized with concerns for aspiration pneumonia, gram-negative pneumonia because of his alcoholism and very rapidly declining status. He's a move out of the ICU. He is feeling somewhat better. He still is very short of breath with any motion. Understands that he needs to eat to get respiratory treatments. Pulmonary is following. If he becomes well for bronchoscopy, would be helpful. Thoracentesis has occurred. He is now slightly less short of breath. Samples from the pleural space remain negative at this time as far as bacteria and fungus. Bronchoscopy will give sampling that will help us determine if he needs antifungal therapy. HIV testing was negative. Status: Acute
[2016-09-25 06:55] LABS: Glucose,Whole Blood 124 mg/dL (75-99)
[2016-09-25] MEDS: INSULIN LISPRO (humaLOG) 300 UNIT/3 ML VIAL SQ SCH ×4 (08:23→20:57)
[2016-09-25] MEDS: PANTOPRAZOLE 40 MG/10 ML VIAL IVP SCH (08:30)
[2016-09-25] MEDS: methylPREDNISolone SOD SUCCI 40 MG/ML 1 ML VIAL IV SCH ×3 (08:30→23:11)
[2016-09-25] MEDS: SODIUM CHLORIDE 0.9% 1,000 ML IV SCH ×2 (08:31→22:39)
[2016-09-25] MEDS ORDERED: LIDOCAINE 1% INJ 10MG/ML (20 ML MDV) ONE (09:12)
[2016-09-25] MEDS ORDERED: PROPOFOL 10 MG/ML 20 ML VIAL IV ONE (09:12)
[2016-09-25] MEDS ORDERED: IV FLUID CONTINUATION 1,000 ML IV ONE (09:15)
--- NOTE | 2016-09-25 09:40 | P.PCN ---
Date of Procedure: 09/25/16 Preoperative Diagnosis: Right upper lobe cavitary lung lesion Postoperative Diagnosis: Same Procedure(s) Performed: Bronchoscopy with right upper lobe BAL Anesthesia: other (Per [facility]) Surgeon: Corie Jimenez Medical Laboratory Scientist #1: Govind Phipps Estimated Blood Loss (ml): 0 Pathology: none sent Condition: stable Disposition: PACU Indications for Procedure: Right upper lobe cavitary lung lesion Operative Findings: Moderate amount of yellow thick mucus bilaterally Description of Procedure: The patient, in the endoscopy suite was placed on continuous electrocardiogram, noninvasive Blood-pressure monitoring, and SPO2 monitoring. He was administered supplemental oxygen via nasal mask and given IV sedation by the department of anesthesia. Topical and endobronchial lidocaine was utilized for anesthesia throughout the course of the procedure as required. The video bronchoscope was passed by the left nares and carried down to the level of the vocal cords. The vocal chords were seen to move freely on phonation and respiration. The larynx is normal. The trachea is normal. The zuhair is sharp. The right mainstem bronchus was entered first where the right upper lobe, right middle lobe and right lower lobe including superior segments were identified. No endobronchial lesions were seen. The bronchoscope was then directed into the left mainstem bronchus where the left upper lobe, lingula, and left lower lobe were visualized without endobronchial lesion. A moderate amount of thick, yellow mucous was noted to be in the bilateral mainstem bronchi. Saline was instilled and suctioned until the mucous was cleared. The bronchoscope was then redirected into the RUL and BAL was performed with 80 cc of saline instilled, 30 cc returned. The bronchoscope was then retracted and the procedure was terminated. The patient tolerated the procedure well. He was discharged to the recovery suite in stable and satisfactory condition. Specimens will be sent for anaerobic, aeorbic, fungal, TB cultures.
[2016-09-25] MEDS: LEVOFLOXACIN 750 MG TAB PO SCH (10:33)
[2016-09-25] MEDS: PIPERACILLIN-TAZOBACTAM 3.375 GM in DEXTROSE/WATER 1 50ML.BAG IVPB SCH ×3 (10:33→23:11)
[2016-09-25] MEDS: ACETAMINOPHEN TAB 325 MG TAB PO PRN (10:36)
[2016-09-25 10:47] LABS: Basophils # (A) 0.1 k/uL (0-0.2); Basophils % (A) 1 %; CHCM 34.1; Eosinophils % (A) 0 %; HDW 2.83; HGB 15.2 gm/dL (13.0-17.5); Luc % (Auto) 1; Lymphocytes # (A) 0.5 k/uL (1.0-4.8); Lymphocytes % (A) 4 %; MCH 31.8 pg (25.0-35.0); MCHC 33.8 g/dL (31.0-37.0); MCV 94.2 fL (80.0-100.0); Mean Platelet Volume 7.6; Monocytes # (A) 0.5 k/uL (0-1.0); Monocytes % (A) 5 %; Neutrophils # (A) 9.6 k/uL (1.3-7.7); Neutrophils % (A) 88 %; RBC 4.78 m/uL (4.30-5.90); RDW 13.4 % (11.5-15.5); WBC 10.9 k/uL (3.8-10.6); WBC (Perox) 11.26
[2016-09-25] MEDS: IPRATROPIUM-ALBUTEROL 3 ML NEB INHALATION PRN ×2 (11:10→19:49)
[2016-09-25 11:15] LABS: Anion Gap 9 mmol/L; Blood Urea Nitrogen 13 mg/dL (9-20); Calcium 8.9 mg/dL (8.4-10.2); Carbon Dioxide 25 mmol/L (22-30); Chloride 101 mmol/L (98-107); Glucose 101 mg/dL (74-99); Non-African American GFR(MDRD) >60 (>60 ml/min/1.73 sqM); Potassium 4.5 mmol/L (3.5-5.1); Sodium 135 mmol/L (137-145)
[2016-09-25 11:16] VITALS: BMI 21.8
[2016-09-25 11:31] LABS: Glucose,Whole Blood 112 mg/dL (75-99)
[2016-09-25] MEDS: THIAMINE 100 MG TAB PO SCH ×2 (12:56→17:25)
--- NOTE | 2016-09-25 16:49 | P.PN ---
Subjective Date of service 09/25/2016 Progress note being dictated for Dr. Finley. Interval history: This is a 65-year-old gentleman admitted with acute COPD exacerbation, cavitary pneumonia, pleural effusions, status post thoracentesis and multiple other medical issues. Thoracentesis cytology reporting no malignancy cells. Underwent Bronchoscopy, with moderate amount of thick yellow mucus suctioned from bilateral mainstem bronchi .tolerated procedure well. Cultures pending .Maintained on Levaquin and Zosyn as per ID. Afebrile, maintaining O2 sats of 96% on 2 L nasal cannula. Declining physical therapy. Objective - Vital Signs Vital signs: Vital Signs Temp 98.1 F 09/25/16 14:57 Pulse 95 09/25/16 14:57 Resp 20 09/25/16 14:57 BP 111/71 09/25/16 14:57 Pulse Ox 96 09/25/16 14:57 Intake & Output 09/24/16 09/25/16 09/25/16 18:59 06:59 18:59 Intake Total 530 458 Output Total 302 1575 1600 Balance 228 -6655 1142 Weight 73 kg 73 kg Intake: IV 100 Intake, IV Titration 50 Amount Piperacillin-Tazobactam 3 50 .375 gm In Dextrose/Water 1 50ml.bag @ 12.5 mls/hr IVPB Q8HR ON LICENSE OF [facility] Rx#: [id number] Oral 480 358 Output: Urine 300 1575 1600 Stool 2 Other: Voiding Method Toilet Toilet Toilet Urinal Urinal Urinal # Voids 1 2 # Bowel Movements 1 - Exam PHYSICAL EXAM: VITAL SIGNS: As above GENERAL: [Sitting up in bed, no acute distress] HEENT: [Pupils equal conjunctiva normal.] NECK: [Supple, no JVD] RESPIRATORY EFFORT:[Normal] LUNGS: [Diminished, CARDIOVASCULAR[regular S1 and S2, no edema] GI: [Abdomen soft, nontender, positive bowel sounds.] PSYCH: [Alert and oriented -3, mood and affect normal.] NEURO: No focal deficits Microbiology 09/22/16 13:30 Pleural Fluid Gram Stain - Preliminary 09/22/16 13:30 Pleural Fluid Body Fluid Culture - Preliminary 09/25/16 11:15 Sputum Sputum Culture - Preliminary 09/22/16 13:30 Pleural Fluid Anaerobic Culture - Preliminary 09/18/16 16:45 Blood Blood Culture - Final No Growth after 144 hours 09/22/16 13:30 Pleural Fluid Fungal Culture - Preliminary 09/18/16 17:06 Sputum Gram Stain - Final 09/18/16 17:06 Sputum Sputum Culture - Final - Labs CBC & Chem 7: 09/25/16 10:23 09/25/16 10:23 Labs: Abnormal Lab Results - Last 24 Hours (Table) 09/24/16 09/24/16 09/25/16 Range/Units 17:07 21:09 06:52 WBC (3.8-10.6) k/uL Neutrophils # (1.3-7.7) k/uL Lymphocytes # (1.0-4.8) k/uL Sodium (137-145) mmol/L Creatinine (0.66-1.25) mg/dL Glucose (74-99) mg/dL POC Glucose (mg/dL) 112 H 144 H 124 H (75-99) mg/dL 09/25/16 09/25/16 09/25/16 Range/Units 10:23 10:23 11:29 WBC 10.9 H (3.8-10.6) k/uL Neutrophils # 9.6 H (1.3-7.7) k/uL Lymphocytes # 0.5 L (1.0-4.8) k/uL Sodium 135 L (137-145) mmol/L Creatinine 0.50 L (0.66-1.25) mg/dL Glucose 101 H (74-99) mg/dL POC Glucose (mg/dL) 112 H (75-99) mg/dL Microbiology - Last 24 Hours (Table) 09/22/16 13:30 Gram Stain - Preliminary Pleural Fluid Body Fluid Culture - Preliminary 09/25/16 11:15 Sputum Culture - Preliminary Sputum 09/22/16 13:30 Anaerobic Culture - Preliminary Pleural Fluid Assessment and Plan Plan: 1. Acute hypoxic hypercarbic respiratory failure secondary to Acute COPD exacerbation with bilateral pneumonia, possibly gram-negative due to severe sepsis. 2. [Right upper lobe cavitary lesion, possibly due to aspiration versus aspergilloma]. Status post Bronchoscopy 3. Pleural effusion greater on right than left, status post thoracentesis- transudative]. Cytology pending 4. [Emphysema]. 5. [Elevated d-dimer without evidence of pulmonary embolism]. 6. [Hypovolemic hyponatremia]. 7. [Lactic acidosis secondary to sepsis]. 8. Continued ongoing nicotine dependence Plan: Continue on current medication regime, antibiotics, nebulized bronchodilators, steroids, monitoring and symptomatic treatment. PT OT/ encourage participation with. Bronchoscopy cultures pending. Antibiotics as per infectious disease. Discharge planning in progress. . The impression and plan of care has been dictated as directed. : I performed a H&P examination of this patient and discussed the same with the dictator. I agree with the dictator's note. Any additional findings/opinions/ etc. will be noted.
[2016-09-25 16:58] LABS: Glucose,Whole Blood 138 mg/dL (75-99)
--- NOTE | 2016-09-25 18:17 | PN ---
DATE OF SERVICE: 09/25/2016 This 65-year-old gentleman was admitted with pneumonia and chronic obstructive pulmonary disease acute exacerbation is being closely monitored. The patient underwent bronchoscopy today by Dr. Jimenez. Seen and evaluated the patient along with the nurse practitioner. Please refer to the nurse practitioner notes and impression documented for further information. Prognosis guarded.
[2016-09-25 20:53] LABS: Glucose,Whole Blood 127 mg/dL (75-99)
--- NOTE | 2016-09-25 21:06 | P.PN ---
Subjective Principal diagnosis: Shortness of breath This is a 65-year-old male. He has a past medical history of COPD. He gives history of being shortness of breath for a couple of months with occasional chills. He states he had a few drops of blood in his sputum initially but that went away. He has had weight loss of 20 pounds with loss of appetite, generalized weakness and fatigue and generalized malaise. He did not seek any treatment until he came into the ER on September 18. Chest x-ray showed multifocal pleural parenchyma. He underwent a CAT scan of the chest that showed bilateral prominence with pleural effusion greater on the right with left lower lobe consolidation and right lower lobe, right middle lobe, left upper lobe atelectasis. Right upper lobe cavitary lesion with dependent nodules suggest fungal. His pulse ox initially was 89% he has been afebrile. White count was 11.5 and improved to 7.5. D-dimer was elevated at 5.1. GFR greater than 60. Lactic acid initially 2.1 followed by 4.64. Albumin 3.7. Troponin 0.012. Patient was admitted to the intensive care unit and consult requested with pulmonary medicine as well. Patient does have history of smoking for 40+ years at least 1 pack per day or more. He also has history of alcohol abuse with 4-5 beers per day but recently had to cut back as he has not been feeling well and is now drinking one can per day. He does have service in [place] but was not exposed to agent orange. He denies any recent travel. He is currently living alone. 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 The patient relates that he is just slightly less short of breath than yesterday. He still is working very hard to breathe. He's having cough without much sputum production at the moment. No current hemoptysis. Feels very weak. Attempting to eat more because he's had weight loss. Fortunately he relates is feeling better after his thoracentesis . Slightly less short of breath, but does have some pain at the thoracentesis site is related to somewhat surprised that it went so well. Bronchoscopy went well Objective - Vital Signs Vital signs: Vital Signs Temp 98.1 F 09/25/16 14:57 Pulse 76 09/25/16 20:03 Resp 20 09/25/16 16:47 BP 111/71 09/25/16 14:57 Pulse Ox 96 09/25/16 14:57 Intake & Output 09/25/16 09/25/16 09/26/16 06:59 18:59 06:59 Intake Total 756 237 Output Total 1575 1601 Balance -1575 -845 237 Weight 73 kg Intake: IV 100 Oral 656 237 Output: Urine 1575 1600 Stool 1 Other: Voiding Method Toilet Toilet Toilet Urinal Urinal Urinal # Voids 2 - Exam Gen: This is a thin 65-year-old male. Seems less short of breath. Coughs occasionally. Remains very distinctly unhappy that he is ill and hospitalized but understands the reasoning. HEENT: Head is atraumatic, normocephalic. Pupils equal, round. Sclerae is anicteric. Oral mucous membranes are dry. Dentition is in poor order and patient has only a few teeth left. No thrush noted. NECK: Supple. No JVD. No lymphadenopathy. No thyromegaly. LUNGS: Coarse crackles throughout with occasional scattered expiratory wheeze. Moderate intercostal retractions. Patient has i There is improved aeration to the right mid to lower posterior lung field dyspnea with minimal exertion. HEART: Regular rate and rhythm. No murmur. ABDOMEN: Soft. Bowel sounds are present. No masses. No tenderness. EXTREMITIES: No pedal edema. No calf tenderness. Dorsalis pedis +2 bilaterally. NEUROLOGICAL: Patient is awake, alert and oriented x3 Skin showing some breakdown to his coccyx from history and weight loss and inability to ambulate well with his profound shortness of breath - Labs CBC & Chem 7: 09/25/16 10:23 09/25/16 10:23 Labs: Abnormal Lab Results - Last 24 Hours (Table) 09/24/16 09/25/16 09/25/16 Range/Units 21:09 06:52 10:23 WBC 10.9 H (3.8-10.6) k/uL Neutrophils # 9.6 H (1.3-7.7) k/uL Lymphocytes # 0.5 L (1.0-4.8) k/uL Sodium (137-145) mmol/L Creatinine (0.66-1.25) mg/dL Glucose (74-99) mg/dL POC Glucose (mg/dL) 144 H 124 H (75-99) mg/dL 09/25/16 09/25/16 09/25/16 Range/Units 10:23 11:29 16:57 WBC (3.8-10.6) k/uL Neutrophils # (1.3-7.7) k/uL Lymphocytes # (1.0-4.8) k/uL Sodium 135 L (137-145) mmol/L Creatinine 0.50 L (0.66-1.25) mg/dL Glucose 101 H (74-99) mg/dL POC Glucose (mg/dL) 112 H 138 H (75-99) mg/dL 09/25/16 Range/Units 20:52 WBC (3.8-10.6) k/uL Neutrophils # (1.3-7.7) k/uL Lymphocytes # (1.0-4.8) k/uL Sodium (137-145) mmol/L Creatinine (0.66-1.25) mg/dL Glucose (74-99) mg/dL POC Glucose (mg/dL) 127 H (75-99) mg/dL Microbiology - Last 24 Hours (Table) 09/25/16 09:30 Acid Fast Bacilli Culture - Preliminary Bronchial Washings - Right 09/25/16 09:30 Bronchial Washings Culture - Preliminary Bronchial Washings - Right 09/25/16 09:30 Fungal Culture - Preliminary Bronchial Washings - Right 09/22/16 13:30 Gram Stain - Preliminary Pleural Fluid Body Fluid Culture - Preliminary 09/25/16 11:15 Sputum Culture - Preliminary Sputum 09/22/16 13:30 Anaerobic Culture - Preliminary Pleural Fluid Laboratory Results WBC 10.9 k/uL (3.8-10.6) H 09/25/16 10:23 RBC 4.78 m/uL (4.30-5.90) 09/25/16 10:23 Hgb 15.2 gm/dL (13.0-17.5) 09/25/16 10:23 Hct 45.0 % (39.0-53.0) 09/25/16 10:23 MCV 94.2 fL (80.0-100.0) 09/25/16 10:23 MCH 31.8 pg (25.0-35.0) 09/25/16 10:23 MCHC 33.8 g/dL (31.0-37.0) 09/25/16 10:23 RDW 13.4 % (11.5-15.5) 09/25/16 10:23 Plt Count 191 k/uL (150-450) 09/25/16 10:23 Neutrophils % 88 % 09/25/16 10:23 Lymphocytes % 4 % 09/25/16 10:23 Monocytes % 5 % 09/25/16 10:23 Eosinophils % 0 % 09/25/16 10:23 Basophils % 1 % 09/25/16 10:23 Neutrophils # 9.6 k/uL (1.3-7.7) H 09/25/16 10:23 Lymphocytes # 0.5 k/uL (1.0-4.8) L 09/25/16 10:23 Monocytes # 0.5 k/uL (0-1.0) 09/25/16 10:23 Eosinophils # 0.0 k/uL (0-0.7) 09/25/16 10:23 Basophils # 0.1 k/uL (0-0.2) 09/25/16 10:23 ESR 28 mm/hr (0-15) H 09/22/16 08:23 PT 11.0 sec (9.0-12.0) 09/22/16 11:13 INR 1.1 (<1.1) 09/22/16 11:13 APTT 25.8 sec (22.0-30.0) 09/18/16 16:45 D-Dimer 5.10 mg/L FEU (<0.60) H 09/18/16 16:45 Sodium 135 mmol/L (137-145) L 09/25/16 10:23 Potassium 4.5 mmol/L (3.5-5.1) 09/25/16 10:23 Chloride 101 mmol/L (98-107) 09/25/16 10:23 Carbon Dioxide 25 mmol/L (22-30) 09/25/16 10:23 Anion Gap 9 mmol/L 09/25/16 10:23 BUN 13 mg/dL (9-20) 09/25/16 10:23 Creatinine 0.50 mg/dL (0.66-1.25) L 09/25/16 10:23 Est GFR (MDRD) Af Amer >60 (>60 ml/min/1.73 sqM) 09/25/16 10:23 Est GFR (MDRD) Non-Af >60 (>60 ml/min/1.73 sqM) 09/25/16 10:23 Glucose 101 mg/dL (74-99) H 09/25/16 10:23 POC Glucose (mg/dL) 127 mg/dL (75-99) H 09/25/16 20:52 POC Glu Laborer Laboratory ID Tana Mclaughlin 09/25/16 20:[address] Glu mg/dL 117 mg/dL 09/18/16 16:45 Hemoglobin A1c 5.7 % (4.2-6.1) 09/18/16 16:45 Plasma Lactic Acid Gurpreet 2.1 mmol/L (0.7-2.0) H 09/19/16 18:54 Calcium 8.9 mg/dL (8.4-10.2) 09/25/16 10:23 Phosphorus 3.2 mg/dL (2.5-4.5) 09/19/16 04:12 Magnesium 1.8 mg/dL (1.6-2.3) 09/19/16 04:12 Total Bilirubin 1.0 mg/dL (0.2-1.3) 09/18/16 16:45 AST 38 U/L (17-59) 09/18/16 16:45 ALT 33 U/L (21-72) 09/18/16 16:45 Alkaline Phosphatase 170 U/L (38-126) H 09/18/16 16:45 Total Creatine Kinase 82 U/L (55-170) 09/18/16 16:45 CK-MB (CK-2) 6.8 ng/mL (0.0-2.4) H* 09/18/16 16:45 CK-MB (CK-2) Rel Index 8.3 09/18/16 16:45 Troponin I <0.012 ng/mL (0.000-0.034) 09/18/16 16:45 C-Reactive Protein 21.8 mg/L (<10.0) H 09/22/16 08:23 NT-Pro-B Natriuret Pep 391 pg/mL 09/18/16 16:45 Total Protein 7.8 g/dL (6.3-8.2) 09/18/16 16:45 Albumin 3.7 g/dL (3.5-5.0) 09/18/16 16:45 Urine Color Yellow 09/22/16 22:00 Urine Appearance Clear (Clear) 09/22/16 22:00 Urine pH 6.0 (5.0-8.0) 09/22/16 22:00 Ur Specific [place] 1.024 (1.001-1.035) 09/22/16 22:00 Urine Protein Trace (Negative) H 09/22/16 22:00 Urine Glucose (UA) Negative (Negative) 09/22/16 22:00 Urine Ketones Trace (Negative) H 09/22/16 22:00 Urine Blood Negative (Negative) 09/22/16 22:00 Urine Nitrate Negative (Negative) 09/22/16 22:00 Urine Bilirubin Negative (Negative) 09/22/16 22:00 Urine Urobilinogen <2.0 mg/dL (<2.0) 09/22/16 22:00 Ur Leukocyte Esterase Negative (Negative) 09/22/16 22:00 Fluid Source Pleural 09/22/16 13:30 Fluid Appearance Cloudy 09/22/16 13:30 Fluid RBC 2895 /uL 09/22/16 13:30 Fluid Nucleated Cells 300 /uL 09/22/16 13:30 Fluid Polynuclear WBCs 2 % 09/22/16 13:30 Fluid Mononuclear WBCs 98 % 09/22/16 13:30 Vancomycin Trough <5.0 ug/mL 09/20/16 05:48 HIV-1 Ab Supplemental TNP 09/22/16 08:23 HIV-2 Ab Supplemental TNP 09/22/16 08:23 HIV 1&2 Ag/Ab, 4th Gen NONREAC (NON REAC) 09/22/16 08:23 Miscellaneous Test Rt,Pleural Protein 09/22/16 13:30 Misc Test Result See Comment 09/22/16 13:30 Microbiology 09/25/16 09:30 Bronchial Washings - Right Acid Fast Bacilli Culture - Preliminary 09/25/16 09:30 Bronchial Washings - Right Bronchial Washings Culture - Preliminary 09/25/16 09:30 Bronchial Washings - Right Fungal Culture - Preliminary 09/22/16 13:30 Pleural Fluid Gram Stain - Preliminary 09/22/16 13:30 Pleural Fluid Body Fluid Culture - Preliminary 09/25/16 11:15 Sputum Sputum Culture - Preliminary 09/22/16 13:30 Pleural Fluid Anaerobic Culture - Preliminary 09/18/16 16:45 Blood Blood Culture - Final No Growth after 144 hours 09/22/16 13:30 Pleural Fluid Fungal Culture - Preliminary 09/18/16 17:06 Sputum Gram Stain - Final 09/18/16 17:06 Sputum Sputum Culture - Final Assessment and Plan (1) Acute exacerbation of chronic obstructive airways disease Status: Acute (2) Cavitary pneumonia Narrative/Plan: He was noted that he has had cough with bloody sputum production at times. With a cavitary lung lesion. With his history of alcoholism would be concerned to tuberculosis. The patient however is now had 5 CT scans performed over the last period of time. At this time there is no evidence of any tuberculosis on any of the scans. 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 He also has an extensive effusion to the right lower lobe. Pulmonary critical care is consulted. Likely will need of sampling of the fluid for further evaluation. When more stable may also do well with bronchoscopy for sampling of that right upper lobe lesion. At this time for antimicrobial therapy for persistent on tazobactam and levofloxacin are being utilized with concerns for aspiration pneumonia, gram-negative pneumonia because of his alcoholism and very rapidly declining status. He's a move out of the ICU. He is feeling somewhat better. He still is very short of breath with any motion. Understands that he needs to eat to get respiratory treatments. Pulmonary is following. If he becomes well for bronchoscopy, would be helpful. Thoracentesis has occurred. He is now slightly less short of breath. Samples from the pleural space remain negative at this time as far as bacteria and fungus. Bronchoscopy will give sampling that will help us determine if he needs antifungal therapy. HIV testing was negative. Air mattress overlay is added thick zinc products to his coccyx protected. Improved protein intake Status: Acute
[2016-09-26 06:58] LABS: Glucose,Whole Blood 113 mg/dL (75-99)
[2016-09-26] MEDS: INSULIN LISPRO (humaLOG) 300 UNIT/3 ML VIAL SQ SCH ×2 (07:05→12:21)
[2016-09-26] MEDS: IPRATROPIUM-ALBUTEROL 3 ML NEB INHALATION PRN ×2 (08:17→11:58)
[2016-09-26] MEDS: PIPERACILLIN-TAZOBACTAM 3.375 GM in DEXTROSE/WATER 1 50ML.BAG IVPB SCH (08:19)
[2016-09-26] MEDS: LEVOFLOXACIN 750 MG TAB PO SCH (08:20)
[2016-09-26] MEDS: PANTOPRAZOLE 40 MG/10 ML VIAL IVP SCH (08:20)
[2016-09-26] MEDS: methylPREDNISolone SOD SUCCI 40 MG/ML 1 ML VIAL IV SCH (08:20)
[2016-09-26 12:19] LABS: Glucose,Whole Blood 81 mg/dL (75-99)
[2016-09-26] MEDS: THIAMINE 100 MG TAB PO SCH (12:22)
[2016-09-26] MEDS: SODIUM CHLORIDE 0.9% 1,000 ML IV SCH (12:23)
[2016-09-26 14:55] VITALS: BP 118/71; PULSE 77; RESP 22; TEMP 97.1
--- NOTE | 2016-09-26 15:21 | P.PN ---
Subjective Principal diagnosis: RUL cavitary pneumonia Patient seen and examined. States he is doing well post-bronchoscopy. He is wondering when he can go home. He is also wondering why it is taking so long for this infection to get better. He has been afebrile. Objective - Vital Signs Vital signs: Vital Signs Temp 97.1 F L 09/26/16 08:04 Pulse 80 09/26/16 12:08 Resp 22 09/26/16 10:56 BP 118/71 09/26/16 08:04 Pulse Ox 93 L 09/26/16 10:56 Intake & Output 09/25/16 09/26/16 09/26/16 18:59 06:59 18:59 Intake Total 602 626 6400 Output Total 1601 1000 601 Balance -845 -263 899 Weight 73 kg Intake: IV 100 Oral 103 345 4407 Output: Urine 1600 1000 600 Stool 1 1 Other: Voiding Method Toilet Toilet Toilet Urinal Urinal Urinal # Voids 1 - Exam Gen: A+OX3, NaD CV: RRR, s1/s2 Lungs: coarse breath sounds bilaterally Abd: soft, NT/ND, +BS Ext: no edema - Labs CBC & Chem 7: 09/25/16 10:23 09/25/16 10:23 Labs: Abnormal Lab Results - Last 24 Hours (Table) 09/25/16 09/25/16 09/26/16 Range/Units 16:57 20:52 06:55 POC Glucose (mg/dL) 138 H 127 H 113 H (75-99) mg/dL Microbiology - Last 24 Hours (Table) 09/25/16 11:15 Gram Stain - Preliminary Sputum Sputum Culture - Preliminary 09/22/16 13:30 Gram Stain - Final Pleural Fluid Body Fluid Culture - Final 09/25/16 09:30 Gram Stain - Preliminary Bronchial Washings - Right Bronchial Washings Culture - Preliminary 09/25/16 09:30 Acid Fast Bacilli Culture - Preliminary Bronchial Washings - Right 09/25/16 09:30 Fungal Culture - Preliminary Bronchial Washings - Right Assessment and Plan Plan: Acute hypoxic respiratory failure AECOPD RUL cavitary lung lesion, concerning for fungal vs aspiration pneumonia Alcohol abuse O2 to maintain sat > or = 88% ABX and antifungals per ID awaiting bronch culture results Smoking cessation Continue bronchodilators. GI and DVT prophylaxis
[2016-09-27] MEDS ORDERED: PANTOPRAZOLE 40 MG TABLET PO SCH (07:30)
--- NOTE | 2016-09-27 20:01 | DS ---
DATE OF ADMISSION: 09/18/2016 DATE OF DISCHARGE: 09/26/2016 FINAL DIAGNOSES: 1. Acute hypoxic hypercarbic respiratory failure secondary to chronic obstructive pulmonary disease acute exacerbation as well as bilateral pneumonia, possibly gram-negative resulting in severe sepsis, present on admission. 2. Right upper lobe cavitary lesion, possibly secondary to aspiration versus aspergilloma, status post bronchoscopy. 3. Pleural effusion, greater on the right than left, status post thoracocentesis transudate only. Cytology pending. 4. Chronic obstructive pulmonary disease. 5. Elevated D-dimer without any evidence of pulmonary embolism. 6. Hypovolemic hyponatremia. 7. Lactic acidosis secondary to sepsis. Ongoing. 8. Nicotine dependence. DISCHARGE DISPOSITION: The patient will be discharged in stable condition with guarded prognosis. TOTAL TIME TAKEN: 35 minutes. HISTORY OF PRESENT ILLNESS: This 65-year-old gentleman with a past medical history of multiple medical problems admitted with COPD acute exacerbation as well as pneumonia as mentioned earlier. Patient also had a cavitary lesion, possibly aspergilloma. Pulmonary saw the patient. On exam, vitals are stable. CARDIOVASCULAR SYSTEM: S1, S2 muffled. RESPIRATORY: Breath sounds diminished in the bases. A few scattered rhonchi. ABDOMEN: Soft, nontender. Dr. Yenifer Phipps will perform bronchoscopy. This is pending at this time. The patient will be discharged. Diet is cardiac. Activity limited until followup. Follow up with primary physician in 2 to 3 days. Follow up with Dr. Ricci in [address] Holly Phipps is recommended. MEDICATIONS ARE: 1. Albuterol 2 puffs p.o. q.i.d. p.r.n. 2. Folic acid 1 mg p.o. daily. 3. Albuterol-Atrovent q.i.d. and p.r.n. 4. Ativan 1 mg p.o. q.8 p.r.n. 5. Levaquin 750 mg p.o. daily for 7 days. 6. Multivitamins 1 p.o. daily. 7. Protonix 40 mg p.o. daily. 8. Thiamine 100 mg p.o. daily. 9. Prednisone taper 40 mg daily for 3 days, 30 for 3 days, 20 for 3 days, 10 for 3 days and then discontinue. Total time taken 35 minutes.
== END 2016-09-26 14:57 | disposition home or self-care (01) | DRG 871 ==
LOC: EC 16:14 → 6SEL 20:57 → 6ICU 09-19 01:58 → 4MS4W 09-19 21:19
PROVIDERS: ADMIT Hospitalist; ATTEND Hospitalist
PROC: 0W993ZZ Drainage of Right Pleural Cavity, Percutaneous Approach (ICD-10-PCS; 2016-09-22)
PROC: 0B948ZX Drainage of Right Upper Lobe Bronchus, Via Natural or Artificial Opening Endoscopic, Diagnostic (ICD-10-PCS; principal; 2016-09-25 09:00)
DX: A41.9 Sepsis, unspecified organism (principal); J96.01 Acute respiratory failure with hypoxia; J69.0 Pneumonitis due to inhalation of food and vomit; B44.9 Aspergillosis, unspecified; J96.02 Acute respiratory failure with hypercapnia; J90 Pleural effusion, not elsewhere classified; E87.2 Acidosis; J44.0 Chronic obstructive pulmonary disease with (acute) lower respiratory infection; E87.1 Hypo-osmolality and hyponatremia; J44.1 Chronic obstructive pulmonary disease with (acute) exacerbation; J98.11 Atelectasis; E86.0 Dehydration; F10.20 Alcohol dependence, uncomplicated; F17.200 Nicotine dependence, unspecified, uncomplicated; R65.20 Severe sepsis without septic shock; Z82.49 Family history of ischemic heart disease and other diseases of the circulatory system; Z79.899 Other long term (current) drug therapy
CPT/HCPCS: 31624; 32555; 36415; 36569; 71010; 71020; 71250; 71275; 76604; 76937; 77001; 80048; 80053; 80202; 80306; 81003; 82550; 82553; 82945; 83036; 83605; 83615; 83735; 83880; 84100; 84157; 84484; 85025; 85027; 85049; 85379; 85610; 85652; 85730; 86140; 87040; 87070; 87075; 87102; 87116; 87205; 87206; 87389; 87502; 88108; 88305; 89050; 93005; 93306; 94640; 94667; 94668; 94760; 96365; 96366; 96367; 96375; 99153; 99285; 99291

== ENCOUNTER 2016-10-08 14:49 | Inpatient (IN) | payer OTHER ==
[2016-10-08] MEDS ORDERED: IPRATROPIUM-ALBUTEROL 3 ML NEB INHALATION STA ×2 (15:58→17:48)
--- NOTE | 2016-10-08 16:03 | ED ---
General Adult HPI - General Source: patient, RN notes reviewed Mode of arrival: wheelchair Limitations: no limitations <Cricket Ferro - Last Filed: 10/08/16 17:00> <Cricket Almeida - Last Filed: 10/08/16 17:51> - General Chief complaint: Shortness of Breath Stated complaint: SOB/Lump on side Time Seen by Provider: 10/08/16 15:35 - History of Present Illness Initial comments: This is a 65-year-old male who presents to the emergency department with a history of COPD and smoking. Patient states he had fluid drained from his lung on the right about 2 weeks ago and was discharged from the hospital on the third. Patient states ever since that time he has been having some right sided lateral chest pain with shortness of breath. Patient states that pain and shortness of breath got progressively worse since that time. Patient denies any fever or chills. Patient denies any anterior chest pain or left-sided chest pain. Patient denies any palpitations. Patient denies any injury or trauma. Patient states his upper abdomen is sore from all the coughing is been doing. Patient denies any lightheadedness dizziness or near-syncopal episode. ( Cricket Ferro) - Related Data Home Medications Medication Instructions Recorded Confirmed Ipratropium-Albuterol Nebulize 3 ml INHALATION RT-QID 10/08/16 10/08/16 [Duoneb 0.5 mg-3 mg/3 ml Soln] predniSONE See Taper PO DAILY 10/08/16 10/08/16 Previous Rx's Medication Instructions Recorded Folic Acid 1 mg PO DAILY #30 tablet 09/26/16 LORazepam [Ativan] 1 mg PO Q8H PRN #20 tab 09/26/16 Multivitamins, Thera [Multivitamin] 1 tab PO DAILY #30 tablet 09/26/16 Pantoprazole [Protonix] 40 mg PO LUZMA-MARIANNE #30 tablet. 09/26/16 Thiamine [Vitamin B-1] 100 mg PO DAILY #30 tab 09/26/16 Allergies Allergy/AdvReac Type Severity Reaction Status Date / Time No Known Allergies Allergy Verified 10/08/16 16:10 Review of Systems ROS Other: All systems not noted in ROS Statement are negative. <Cricket Ferro - Last Filed: 10/08/16 17:00> ROS Other: All systems not noted in ROS Statement are negative. <ElleCricket B - Last Filed: 10/08/16 17:51> ROS Statement: Those systems with pertinent positive or pertinent negative responses have been documented in the HPI. Past Medical History Past Medical History: COPD History of Any Multi-Drug Resistant Organisms: None Reported Past Surgical History: No Surgical Hx Reported Past Anesthesia/Blood Transfusion Reactions: No Reported Reaction Past Psychological History: No Psychological Hx Reported Smoking Status: Current some day smoker Past Alcohol Use History: Daily Additional Past Alcohol Use History / Comment(s): Patient is a smoker of greater than 1 pack per day for 40 years. He denies any medical marijuana, marijuana or street drug use. He does admit that he drinks beer on a regular basis and normally has 4-5 cans per day which she has been decreased to 1 can per day due to illness. He served in the [employer] during the [place] war and was stationed in [place]. He denies any exposure to agent orange. He denies any recent travel. There are no pets in the home. He is living at home alone. 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 He does know there are mice in his home. Past Drug Use History: None Reported - Past Family History Father Family Medical History: Myocardial Infarction (HI) <Cricket Ferro - Last Filed: 10/08/16 17:00> General Exam Limitations: no limitations <Cricket Ferro - Last Filed: 10/08/16 17:00> General appearance: alert, in no apparent distress, anxious Head exam: Present: atraumatic, normocephalic, normal inspection Eye exam: Present: normal appearance, PERRL, EOMI. Absent: scleral icterus, conjunctival injection, periorbital swelling ENT exam: Present: mucous membranes dry Neck exam: Present: normal inspection. Absent: tenderness, meningismus, lymphadenopathy Respiratory exam: Present: respiratory distress, wheezes, accessory muscle use, decreased breath sounds, prolonged expiratory. Absent: rales, rhonchi, stridor Cardiovascular Exam: Present: regular rate, normal rhythm, tachycardia, normal heart sounds. Absent: systolic murmur, diastolic murmur, rubs, gallop, clicks GI/Abdominal exam: Present: soft, normal bowel sounds. Absent: distended, tenderness, guarding, rebound, rigid Extremities exam: Present: normal inspection, full ROM, normal capillary refill. Absent: tenderness, pedal edema, joint swelling, calf tenderness Back exam: Present: normal inspection Neurological exam: Present: alert, oriented X3, CN II-XII intact Psychiatric exam: Present: normal affect, normal mood Skin exam: Present: warm, dry, intact, normal color. Absent: rash <Cricket Almeida - Last Filed: 10/08/16 17:51> - General Exam Comments Initial Comments: GENERAL: Patient is well-developed and well-nourished. Patient is nontoxic and well- hydrated and is in mild distress. ENT: Neck is soft and supple. No significant lymphadenopathy is noted. Oropharynx is clear. Moist mucous membranes. Neck has full range of motion without eliciting any pain. EYES: The sclera were anicteric and conjunctiva were pink and moist. Extraocular movements were intact and pupils were equal round and reactive to light. Eyelids were unremarkable. PULMONARY: Diminished breath sounds in the right base and crackles in the left base. CARDIOVASCULAR: There is a regular rate and rhythm without any murmurs gallops or rubs. Right lateral tenderness along the ribs 8 through 11 ABDOMEN: Soft and nontender with normal bowel sounds. No palpable organomegaly was noted. There is no palpable pulsatile mass. SKIN: Skin is clear with no lesions or rashes and otherwise unremarkable. NEUROLOGIC: Patient is alert and oriented x3. Cranial nerves II through XII are grossly intact. Motor and sensory are also intact. Normal speech, volume and content. Symmetrical smile. MUSCULOSKELETAL: Normal extremities with adequate strength and full range of motion. No lower extremity swelling or edema. No calf tenderness. LYMPHATICS: No significant lymphadenopathy is noted PSYCHIATRIC Normal psychiatric evaluation. Normal interpersonal interactions appears functionally intact in deals appropriately with others. No signs of depression. No signs of anxiety. (Cricket Ferro) Course <Cricket Ferro - Last Filed: 10/08/16 17:00> <Cricket Almeida - Last Filed: 10/08/16 17:51> Vital Signs 10/08/16 10/08/16 10/08/16 15:08 16:10 16:52 Temperature 97.5 F L Pulse Rate 108 H 100 Respiratory 20 24 Rate Blood Pressure 138/69 O2 Sat by Pulse 95 Oximetry 10/08/16 16:58 Temperature Pulse Rate 100 Respiratory Rate Blood Pressure O2 Sat by Pulse Oximetry - Reevaluation(s) Reevaluation #1: 10/08/16 17:51 Patient admits to not being a little Abreva, severely short of breath (Cricket Almeida) Medical Decision Making - Lab Data Result diagrams: 10/08/16 16:00 10/08/16 16:00 <Cricket Ferro - Last Filed: 10/08/16 17:00> - Lab Data Result diagrams: 10/08/16 16:00 10/08/16 16:00 - Radiology Data Radiology results: report reviewed (Chest x-ray 2 views positive for pneumonia) , image reviewed <Cricket Almeida - Last Filed: 10/08/16 17:51> - Medical Decision Making EKG shows normal sinus rhythm at 113 bpm MA interval is on a 48 QRS is 94 QT interval 332 QTC is 455. Patient's EKG shows no ST segment elevation or depression or T-wave abdomen is noted. On EKG somewhat inadvertently put the wrong age. Dr. Almeida will be taking over the care of this patient at 5pm. (Cricket Ferro) 61 formality ER for evaluation of severe shortness of breath, congestion positive pneumonia new pneumonia with continued cavitary lesion, continued bilateral pleural effusions. Patient will be referred for breathing treatments control of fever control shortness of breath entire astray monitoring and hemodynamic status (Cricket Almeida) - Lab Data Lab Results 10/08/16 10/08/16 10/08/16 Range/Units 16:00 16:00 16:00 WBC 15.4 H (3.8-10.6) k/uL RBC 5.40 (4.30-5.90) m/uL Hgb 16.9 (13.0-17.5) gm/dL Hct 50.3 (39.0-53.0) % MCV 93.2 (80.0-100.0) fL MCH 31.3 (25.0-35.0) pg MCHC 33.6 (31.0-37.0) g/dL RDW 13.7 (11.5-15.5) % Plt Count 209 (150-450) k/uL Neutrophils % 86 % Lymphocytes % 8 % Monocytes % 4 % Eosinophils % 0 % Basophils % 0 % Neutrophils # 13.2 H (1.3-7.7) k/uL Lymphocytes # 1.3 (1.0-4.8) k/uL Monocytes # 0.6 (0-1.0) k/uL Eosinophils # 0.1 (0-0.7) k/uL Basophils # 0.0 (0-0.2) k/uL PT (9.0-12.0) sec INR (<1.1) APTT (22.0-30.0) sec Sodium 131 L (137-145) mmol/L Potassium 4.7 (3.5-5.1) mmol/L Chloride 94 L (98-107) mmol/L Carbon Dioxide 27 (22-30) mmol/L Anion Gap 10 mmol/L BUN 8 L (9-20) mg/dL Creatinine 0.55 L (0.66-1.25) mg/dL Est GFR (MDRD) Af Amer >60 (>60 ml/min/1.73 sqM) Est GFR (MDRD) Non-Af >60 (>60 ml/min/1.73 sqM) Glucose 117 H (74-99) mg/dL Calcium 9.3 (8.4-10.2) mg/dL Magnesium 1.9 (1.6-2.3) mg/dL Total Bilirubin 1.6 H (0.2-1.3) mg/dL AST 23 (17-59) U/L ALT 36 (21-72) U/L Alkaline Phosphatase 177 H (38-126) U/L Total Creatine Kinase 22 L (55-170) U/L CK-MB (CK-2) 1.9 (0.0-2.4) ng/mL CK-MB (CK-2) Rel Index 8.6 Troponin I <0.012 (0.000-0.034) ng/mL NT-Pro-B Natriuret Pep pg/mL Total Protein 7.3 (6.3-8.2) g/dL Albumin 3.6 (3.5-5.0) g/dL 10/08/16 10/08/16 Range/Units 16:00 16:00 WBC (3.8-10.6) k/uL RBC (4.30-5.90) m/uL Hgb (13.0-17.5) gm/dL Hct (39.0-53.0) % MCV (80.0-100.0) fL MCH (25.0-35.0) pg MCHC (31.0-37.0) g/dL RDW (11.5-15.5) % Plt Count (150-450) k/uL Neutrophils % % Lymphocytes % % Monocytes % % Eosinophils % % Basophils % % Neutrophils # (1.3-7.7) k/uL Lymphocytes # (1.0-4.8) k/uL Monocytes # (0-1.0) k/uL Eosinophils # (0-0.7) k/uL Basophils # (0-0.2) k/uL PT 11.1 (9.0-12.0) sec INR 1.1 (<1.1) APTT 26.2 (22.0-30.0) sec Sodium (137-145) mmol/L Potassium (3.5-5.1) mmol/L Chloride (98-107) mmol/L Carbon Dioxide (22-30) mmol/L Anion Gap mmol/L BUN (9-20) mg/dL Creatinine (0.66-1.25) mg/dL Est GFR (MDRD) Af Amer (>60 ml/min/1.73 sqM) Est GFR (MDRD) Non-Af (>60 ml/min/1.73 sqM) Glucose (74-99) mg/dL Calcium (8.4-10.2) mg/dL Magnesium (1.6-2.3) mg/dL Total Bilirubin (0.2-1.3) mg/dL AST (17-59) U/L ALT (21-72) U/L Alkaline Phosphatase (38-126) U/L Total Creatine Kinase (55-170) U/L CK-MB (CK-2) (0.0-2.4) ng/mL CK-MB (CK-2) Rel Index Troponin I (0.000-0.034) ng/mL NT-Pro-B Natriuret Pep 608 pg/mL Total Protein (6.3-8.2) g/dL Albumin (3.5-5.0) g/dL Critical Care Time Critical Care Time: Yes Total Critical Care Time: 31 <Cricket Almeida - Last Filed: 10/08/16 17:51> Disposition <Cricket Ferro - Last Filed: 10/08/16 17:00> <Cricket Almeida - Last Filed: 10/08/16 17:51> Clinical Impression: COPD (chronic obstructive pulmonary disease), Acute exacerbation of chronic obstructive airways disease, Hypoxia, Nosocomial pneumonia Disposition: ADMITTED IP TO THIS HOSP Condition: Fair Referrals: None,Stated [Primary Care Provider] - 1-2 days
[2016-10-08 16:16] LABS: Basophils % (A) 0 %; CH 32.4; Eosinophils # (A) 0.1 k/uL (0-0.7); Eosinophils % (A) 0 %; HCT 50.3 % (39.0-53.0); HDW 2.53; HGB 16.9 gm/dL (13.0-17.5); Luc # (Auto) 0.23; Luc % (Auto) 2; Lymphocytes # (A) 1.3 k/uL (1.0-4.8); Lymphocytes % (A) 8 %; MCH 31.3 pg (25.0-35.0); MCHC 33.6 g/dL (31.0-37.0); MCV 93.2 fL (80.0-100.0); Mean Platelet Volume 6.6; Monocytes # (A) 0.6 k/uL (0-1.0); Monocytes % (A) 4 %; Neutrophils # (A) 13.2 k/uL (1.3-7.7); Neutrophils % (A) 86 %; RDW 13.7 % (11.5-15.5); WBC 15.4 k/uL (3.8-10.6); WBC (Perox) 14.71
[2016-10-08 16:25] LABS: ALT 36 U/L (21-72); AST 23 U/L (17-59); Alkaline Phosphatase 177 U/L (38-126); Anion Gap 10 mmol/L; Blood Urea Nitrogen 8 mg/dL (9-20); Calcium 9.3 mg/dL (8.4-10.2); Carbon Dioxide 27 mmol/L (22-30); Chloride 94 mmol/L (98-107); Creatine Kinase 22 U/L (55-170); Glucose 117 mg/dL (74-99); Magnesium 1.9 mg/dL (1.6-2.3); Non-African American GFR(MDRD) >60 (>60 ml/min/1.73 sqM); Potassium 4.7 mmol/L (3.5-5.1); Sodium 131 mmol/L (137-145); Total Bilirubin 1.6 mg/dL (0.2-1.3); Total Protein 7.3 g/dL (6.3-8.2)
[2016-10-08 16:37] LABS: Creatine Kinase MB 1.9 ng/mL (0.0-2.4); Troponin I <0.012 ng/mL (0.000-0.034)
[2016-10-08 16:46] LABS: INR 1.1 (<1.1); Partial Thromboplastin Time 26.2 sec (22.0-30.0); Prothrombin Time 11.1 sec (9.0-12.0)
--- NOTE | 2016-10-08 17:27 | XR ---
EXAMINATION TYPE: XR chest 2V DATE OF EXAM: 10/08/2016 5:12 PM COMPARISON: 09/22/2016 HISTORY: Right-sided chest pain TECHNIQUE: Frontal and lateral views of the chest are obtained. FINDINGS: There is elevated right diaphragm. There is patchy pleural thickening on the right lateral chest wall. There are extensive bilateral pulmonary infiltrates. There is also blunting of the left costophrenic angle. Heart size is normal. Pulmonary vascularity is difficult to evaluate because of t he extensive lung disease. There is probably some cavitation in the right upper lobe. IMPRESSION: Extensive bilateral pulmonary infiltrates. 3 cm area of cavitation in the lateral right upper lobe. Elevated right diaphragm and right basilar atelectasis is worse than last exam. There is decrease in the left pleural effusion and right pleural effusion compared to last exam. No definite h eart failure.
[2016-10-08] MEDS ORDERED: PNEUMONIA PROTOCOL UTILIZED 1 EACH MISC PO PRN (17:48)
[2016-10-08] MEDS ORDERED: PIPERACILLIN-TAZOBACTAM 3.375 GM in DEXTROSE/WATER 1 50ML.BAG IVPB STA (17:48)
[2016-10-08] MEDS ORDERED: LEVOFLOXACIN 750MG-D5W PMX 750 MG in DEXTROSE/WATER 1 150ML.BAG IVPB STA (17:48)
[2016-10-08] MEDS: SODIUM CHLORIDE 0.9% 1,000 ML IV SCH (18:10)
[2016-10-08] MEDS: IPRATROPIUM-ALBUTEROL 3 ML NEB INHALATION SCH (19:58)
[2016-10-08] MEDS: HYDROcodone/APAP 5-325MG 1 EACH TAB PO PRN (23:24)
[2016-10-09] MEDS: PIPERACILLIN-TAZOBACTAM 3.375 GM in DEXTROSE/WATER 1 50ML.BAG IVPB SCH ×4 (00:45→23:51)
[2016-10-09] MEDS: SODIUM CHLORIDE 0.9% 1,000 ML IV SCH ×3 (04:08→20:25)
[2016-10-09] MEDS: IPRATROPIUM-ALBUTEROL 3 ML NEB INHALATION SCH ×4 (07:33→20:03)
[2016-10-09] MEDS ORDERED: ENOXAPARIN 40 MG/0.4 ML SYRINGE SQ SCH (09:00)
--- NOTE | 2016-10-09 12:44 | XR ---
EXAMINATION TYPE: XR chest 2V DATE OF EXAM: 10/09/2016 12:23 PM COMPARISON: 10/08/2016 INDICATION: Pneumonia TECHNIQUE: Single frontal view of the chest is obtained. FINDINGS: The heart size is normal. The pulmonary vasculature is normal. There is a cavitary lesion with air-fluid level within the right upper lobe. Infiltrate is present at the left base may be worsening. This can be compatible with pneumonia. This could be superimposed on pulmonary fibrosis. There is chronic elevation of the right diaphragm. Aortic arch is on the left. IMPRESSION: 1. Cavitary lesion right upper lobe. Pneumonia and neoplasm could be considered. Consider atypical et iologies such as fungal pneumonia. 2. Increasing infiltrate at the left base can be compatible with pneumonia. Small left pleural effusi on may be present. This could be superimposed times fibrosis.
[2016-10-09] MEDS: HYDROcodone/APAP 5-325MG 1 EACH TAB PO PRN ×2 (13:26→19:15)
[2016-10-09] MEDS ORDERED: LORazepam 1 MG TAB PO PRN (14:39)
[2016-10-09] MEDS: predniSONE 10 MG TAB PO SCH (15:07)
--- NOTE | 2016-10-09 15:09 | CONS ---
DATE OF CONSULTATION: Casey Jacobsen is a 65-year-old male with a history of COPD, right-sided cavitary lung lesion, history of aspiration pneumonia is recurrent, history of pleural effusions which had previously been tapped and had not found to be malignant, history of bronchoscopy recently which has been AFB and fungal culture negative so far. He comes in with increasing sputum production, pain in the right posterior chest area with some heaviness. No clear fever or chills. He had been bringing up yellowish-green phlegm. Past medical history is positive for COPD, pleural effusions, emphysema, previous weight loss. Family history is noncontributory. SOCIAL HISTORY: Patient is a heavy smoker and used to drink alcohol excessively, now he only drinks beer. Review of systems is positive for weight loss. Medications prior to admission were thiamine, Protonix, multivitamin, Ativan, DuoNeb, folic acid and prednisone in a tapering fashion. On physical examination, his blood pressure was 87/60 with a mean of 69, respiratory rate of 16, pulse rate of 93, temperature 97.7, O2 sat on 3 L by nasal cannula is 94%. HEENT reveals pupils that are equal. Chest reveals bilateral decreased breath sounds, more decreased in the right base than the left base with dullness to percussion, bilateral scattered rhonchi and expiratory wheeze on forced expiration. Cardiovascular system reveals an S1, S2. No S3, S4. Short systolic murmurs. Abdomen is soft. There is no pedal edema. Labs reveal a white count of 15.4, hemoglobin of 16.9. Sodium 131, potassium 4.7, chloride 94, bicarb 27, BUN 8, creatinine of 0.88. Troponin less than 0.012, B-type natriuretic peptide is 608. Albumin of 3.6. Influenza A and B are not detected. Chest x-ray shows right upper lobe cavitary lesion, left lower zone infiltrate, right sided atelectatic changes and volume loss consistent with pleural effusion. IMPRESSION: 1. Aspiration-type pneumonia. 2. Right-sided cavitary lesion with no evidence of TB or fungal infection at this time. Recent bronchoscopy from 09/25/2016 does not show any growth of pathogenic bacteria only normal bacteria had grown, AFB and fungal have been negative so far. 3. Alcoholism. 4. Chronic obstructive pulmonary disease with exacerbation. 5. Congestive heart failure. 6. Medical debility. At this point in time, would consider right-sided thoracentesis. Will try to arrange it through Interventional Radiology. Will keep the patient on bronchodilators, add aerosolized steroids. Keep him on Zosyn and Levaquin and have ID further evaluate the patient. Depending on how he does, we shall make further changes to his care.
--- NOTE | 2016-10-09 15:36 | HP ---
DATE OF ADMISSION: 10/08/2016 CHIEF COMPLAINT: Shortness of breath and cough. HISTORY OF PRESENT ILLNESS: This 65-year-old gentleman with a past medical history of multiple medical problems including COPD, history of pneumonia, history of ETOH and nicotine dependence being followed by no primary care physician in the outpatient setting was recently admitted to [facility] with complaints of chronic obstructive pulmonary disease, acute exacerbation, with respiratory failure, pneumonia, and as well as right upper lobe cavitary lesion, which was thought to be aspiration versus aspergilloma. The patient was seen by Dr. Ricci and Dr. Yenifer Phipps from the pulmonary and the patient was monitored closely. The patient went home on p.o. antibiotics but after going home the patient is unable to function. The patient is having increasingly short of breath, and patient also coughing up sputum. The patient came to [facility] and was admitted to the hospital for further evaluation and treatment. The patient is also complaining of right-sided chest pain. There is no history of any fever, rigors. No history of headaches, loss of consciousness or seizures. The patient had bronchoscopy during the previous admission, AFB smear was negative and AFB cultures and other cultures are negative so far. PAST MEDICAL HISTORY: History of COPD, history of recent pneumonia. History of hypoxic respiratory failure. Medications: 1. Vitamin B 100 mg p.o. daily. 2. Protonix 40 mg daily. 3. Multivitamins. 4. Ativan 1 mg q.8 p.r.n. 5. DuoNeb q.i.d. 6. Folic acid 1 mg daily. 7. Prednisone daily. ALLERGIES: None. FAMILY HISTORY: History of myocardial infarction in the family. SOCIAL HISTORY: History of smoking, alcohol. The patient reports only one beer a day. REVIEW OF SYSTEMS: ENT: No diminished vision. No diminished hearing. CARDIOVASCULAR: As mentioned earlier. RESPIRATORY: As mentioned earlier. GI: No nausea or vomiting. : No dysuria. Nervous system: No numbness, weakness. Allergy/immunology: No asthma or hayfever. MUSCULOSKELETAL: As mentioned earlier. HEMATOLOGY/ONCOLOGY: No history of anemia. ENDOCRINE: No history of diabetes, hypothyroidism. CONSTITUTIONAL: As mentioned earlier. Dermatology: Negative. Rheumatology: Negative. Psych as mentioned earlier. PHYSICAL EXAMINATION: The patient is alert and oriented times three. Pulse is 95. Respiratory rate 16, pulse ox 94% on 4 liters. HEENT: Conjunctivae normal. Oral mucosa moist. NECK: No jugular venous distention. No lymph node enlargement. CARDIOVASCULAR: S1 and S2, muffled. No S3, no S4. RESPIRATORY: Breath sounds diminished at the bases. Bilateral scattered rhonchi and crackles. ABDOMEN: Soft, nontender. No mass palpable. Legs: No edema. No swelling. CENTRAL NERVOUS SYSTEM: Higher functions as mentioned earlier. No focal motor or sensory deficits. SKIN: No ulcer, rash bleeding. LABS: At this time WBC 15.4. Sodium 131, creatinine 0.55, influenza is negative. The chest x-ray done repeated today showed cavitary lesion in the right upper lobe and increased infiltrate in the left base, compatible with pneumonia, small pleural effusion. ASSESSMENT: 1. Bilateral pneumonia left base and right upper lobe pneumonia with failure of outpatient treatment with possible sepsis with failure of outpatient treatment. 2. Increased WBC. 3. 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 4. History of ETOH. 5. History of nicotine dependence. 6. Hyponatremia. 7. Increased random blood sugar. 8. Increased bilirubin. 9. Increased serum alkaline phosphatase. 10. Mild to protein calorie malnutrition with a body mass index 19.6. 11. Chronic hypoxic respiratory failure, on home oxygen at home. 12. History of right pleural effusion, thoracocentesis. 13. FULL CODE. RECOMMENDATIONS AND DISCUSSION: This 65 -year-old gentleman presented with multiple complex medical issues, we will monitor the patient closely. Continue the current medications. Continue symptomatic treatment. Otherwise, at this time I would recommend continue with bronchodilators, continue with empiric antibiotics. Infectious disease and pulmonary will be consulted, will be reconsulted otherwise, repeat labs are ordered. DVT prophylaxis. Guarded prognosis because of multiple complex medical issues. Zosyn has been initiated on an empirically basis. Further recommendations to follow. Closely follow up with the primary physician.
[2016-10-09] MEDS: BUDESONIDE 0.5 MG/2 ML NEBU INHALATION SCH (20:03)
[2016-10-09] MEDS: LEVOFLOXACIN 750MG-D5W PMX 750 MG in DEXTROSE/WATER 1 150ML.BAG IVPB SCH (20:20)
[2016-10-09] MEDS: HEPARIN SODIUM,PORCINE 5,000 UNIT/ML 1 ML VIAL SQ SCH (20:20)
[2016-10-09] MEDS ORDERED: TEMAZEPAM 15 MG CAP PO PRN (21:00)
[2016-10-09 23:50] LABS: Appearance,Urine Clear (Clear); Bilirubin,Urine Negative (Negative); Glucose,Urine (UA) Negative (Negative); Ketones,Urine Trace (Negative); Leukocyte Esterase,Urine Negative (Negative); Nitrite,Urine Negative (Negative); Protein,Urine Trace (Negative); UA Billing (MACRO vs. MICRO) CHEM; Urobilinogen,Urine <2.0 mg/dL (<2.0)
[2016-10-10] MEDS: BUDESONIDE 0.5 MG/2 ML NEBU INHALATION SCH ×2 (07:07→21:00)
[2016-10-10] MEDS: IPRATROPIUM-ALBUTEROL 3 ML NEB INHALATION SCH ×4 (07:07→21:00)
[2016-10-10] MEDS: PANTOPRAZOLE 40 MG TABLET PO SCH (08:30)
[2016-10-10] MEDS: predniSONE 10 MG TAB PO SCH (08:30)
[2016-10-10] MEDS: PIPERACILLIN-TAZOBACTAM 3.375 GM in DEXTROSE/WATER 1 50ML.BAG IVPB SCH ×3 (08:30→23:46)
[2016-10-10] MEDS: HEPARIN SODIUM,PORCINE 5,000 UNIT/ML 1 ML VIAL SQ SCH ×2 (08:30→21:08)
[2016-10-10] MEDS: HYDROcodone/APAP 5-325MG 1 EACH TAB PO PRN ×3 (08:42→22:26)
[2016-10-10 09:02] LABS: Basophils % (A) 0 %; CH 32.2; Eosinophils # (A) 0.1 k/uL (0-0.7); Eosinophils % (A) 1 %; HCT 41.3 % (39.0-53.0); HDW 2.49; Luc # (Auto) 0.22; Luc % (Auto) 3; Lymphocytes # (A) 0.9 k/uL (1.0-4.8); Lymphocytes % (A) 11 %; MCH 30.9 pg (25.0-35.0); MCHC 32.5 g/dL (31.0-37.0); MCV 95.2 fL (80.0-100.0); Mean Platelet Volume 6.7; Monocytes # (A) 0.5 k/uL (0-1.0); Monocytes % (A) 6 %; Neutrophils # (A) 6.6 k/uL (1.3-7.7); Neutrophils % (A) 79 %; RBC 4.34 m/uL (4.30-5.90); RDW 13.6 % (11.5-15.5); WBC 8.3 k/uL (3.8-10.6); WBC (Perox) 8.73
[2016-10-10 09:13] LABS: HGB 13.4 gm/dL (13.0-17.5)
[2016-10-10 09:19] LABS: Anion Gap 9 mmol/L; Blood Urea Nitrogen 6 mg/dL (9-20); Calcium 8.5 mg/dL (8.4-10.2); Carbon Dioxide 25 mmol/L (22-30); Chloride 98 mmol/L (98-107); Glucose 111 mg/dL (74-99); Non-African American GFR(MDRD) >60 (>60 ml/min/1.73 sqM); Potassium 3.9 mmol/L (3.5-5.1); Sodium 132 mmol/L (137-145)
--- NOTE | 2016-10-10 10:29 | US ---
EXAMINATION TYPE: US chest DATE OF EXAM: 10/10/2016 10:20 AM COMPARISON: Chest x-ray from yesterday. CLINICAL HISTORY: u/s limited- rt side only please per Dr Amaro. Right pleural effusion EXAM MEASUREMENTS: Right Pleural Effusion fluid pocket: 16.2 cm Right skin to fluid thickness: 2.5 cm Right side marked for possible thoracentesis outside the dept. Pulmonologists are able to review the images in the patient?s EMR. Moderate to large size right pleural effusion is seen on images saved. IMPRESSIONS: As above.
[2016-10-10] MEDS: SODIUM CHLORIDE 0.9% 1,000 ML IV SCH ×2 (10:50→21:08)
[2016-10-10] MEDS: FOLIC ACID 1 MG TAB PO SCH (11:13)
[2016-10-10] MEDS: MULTIVITAMINS, THERA 1 EACH TAB PO SCH (11:13)
[2016-10-10] MEDS: THIAMINE 100 MG TAB PO SCH (11:13)
--- NOTE | 2016-10-10 11:29 | P.PN ---
Subjective Principal diagnosis: RUL cavitary lesion Patient seen and examined. Patient states he is feeling a little better. He is still coughing. He denies fevers, chills. Plan for thoracentesis today. Objective - Vital Signs Vital signs: Vital Signs Temp 96.3 F L 10/10/16 07:00 Pulse 96 10/10/16 11:19 Resp 19 10/10/16 07:00 BP 119/62 10/10/16 07:00 Pulse Ox 96 10/10/16 07:00 Intake & Output 10/09/16 10/10/16 10/10/16 18:59 06:59 18:59 Intake Total 200 240 Output Total 325 Balance 200 -85 Intake: Oral 200 240 Output: Urine 325 Other: Voiding Method Urinal Toilet Toilet Urinal Urinal # Voids 2 0 # Bowel Movements 0 - Exam Gen: A+OX3, NAD CV: RRR, s1/s2 Lungs: coarse breath sounds bilaterally Abd: soft, NT/ND, +BS Ext. no edema - Labs CBC & Chem 7: 10/10/16 08:33 10/10/16 08:33 Labs: Abnormal Lab Results - Last 24 Hours (Table) 10/09/16 10/10/16 10/10/16 Range/Units 23:45 08:33 08:33 Plt Count 135 L (150-450) k/uL Lymphocytes # 0.9 L (1.0-4.8) k/uL Sodium 132 L (137-145) mmol/L BUN 6 L (9-20) mg/dL Creatinine 0.51 L (0.66-1.25) mg/dL Glucose 111 H (74-99) mg/dL Urine Protein Trace H (Negative) Urine Ketones Trace H (Negative) Urine Opiates Screen Detected H (NotDetected) Assessment and Plan Plan: Acute on chronic hypoxic respiratory failure AECOPD Aspiration pneumonia RUL cavitary lung lesion Alcohol abuse O2 to maintain sat > or = 88% Plan for thoracentesis by IR today. Fluid for cytology, cultures ABX per ID Bronchodilators and Pulmicort IV Solumedrol Sputum culture GI and DVT prophylaxis
--- NOTE | 2016-10-10 13:35 | US ---
EXAMINATION TYPE: US thoracentesis DATE OF EXAM: 10/10/2016 1:28 PM COMPARISON: NONE HISTORY: Pain PROCEDURE: The risks, applications, benefits and alternatives, were discussed with the patient and questions wer e answered. Informed consent was obtained. The patient was placed sitting upright on the ultrasound table, prepped and draped in the usual sterile fashion. Utilizing a catheter system access in the right pleural space was achieved and there is removal of ap proximately 1450 cc of fluid. The patient was stable throughout procedure and remained stable upon discharge from radiology. All e lements of maximal barrier and sterile technique were utilized. Sample sent to pathology. IMPRESSION: 1. Successful ultrasound guided right thoracentesis.
--- NOTE | 2016-10-10 13:39 | XR ---
EXAMINATION TYPE: XR chest 1V portable DATE OF EXAM: 10/10/2016 1:33 PM COMPARISON: 10/09/2016 HISTORY: Post right thoracentesis TECHNIQUE: Single frontal view of the chest is obtained. FINDINGS: No sizable pneumothorax. Bilateral diffuse airspace disease noted. There is interval reduc tion in amount of pleural fluid postthoracentesis. Underlying bilateral infiltrate noted and there is a cavitary lesion with an air-fluid level in the right apex. Infected bulla, abscess or cavitary philipp plasm differential. Underlying COPD suspected Arthropathy of the shoulders. IMPRESSION: 1. Bilateral airspace disease and pleural effusion correlate for mild CHF. 2. cavitary right upper lobe lung lesion 3. No evidence of pneumothorax
--- NOTE | 2016-10-10 15:20 | P.CON ---
Consult Note - . Consult date: 10/10/16 Assessment/Plan:: 65-year-old male who presents to hospital with increasing shortness of breath. He was recently hospitalized at this facility where he was on evidence of an exacerbation of his COPD with pneumonia. If progressive weight loss. Decreased appetite. Increasing weakness. He was evaluated that time and computed tomography scan showed evidence of significant effusions especially to the right side. As well as significant pneumonia with a cavitary lesion in the right upper lobe. During his stay he underwent bronchoscopy and to date samples are negative for fungus and pathology was negative for any malignancy. Was discharged home on antibiotic therapy but he failed rapidly in the outpatient setting. He became concerned and more short of breath. When she was crawling around at home because he was so short of breath. Because he presented back to the emergency center. If the admission he has evidence of extensive shortness of breath. He has hypoxia. It is evidence of marked worsening of his effusion to the right chest. There are plans for repeated thoracentesis to improve his significant dyspnea. He relates it is not having high-grade fevers chills or rigors or sweats. Certainly feels very poorly. Please see the consult note as dictated by nurse practitioner Mrs. Vilma Chambers. Exam at this time shows a patient to be status post a thoracentesis. There is still markedly diminished breath sounds at the right base. He appears to be acutely all. But his appetite improved. He is trying to eat his lunch. No other acute changes are noted at the moment. Data review from the last day shows evidenceof pathogens evidence of any fungal pathogens. AFB was negative also. Cytology was negative from both a bronchoscopy as well as the thoracentesis. The patient has advanced COPD and is having exacerbation of this as well as worsening effusion. Patient seen by pulmonary critical care and their plans are in process. For antimicrobial therapy. He is a piperacillin tazobactam as well as Levaquin until we have further data. Receiving steroid therapy also. Nutritional supplementation is an important part of his recovery and is being continued. I agree with evaluation, assessment and plan as dictated by nurse practitioner Mrs. Vilma Cordova.
--- NOTE | 2016-10-10 15:49 | P.CONS ---
History of Present Illness - Reason for Consult Consult date: 10/10/16 - History of Present Illness 65-year-old male who presents to hospital with increasing shortness of breath. He was recently hospitalized at this facility where he was on evidence of an exacerbation of his COPD with pneumonia. If progressive weight loss. Decreased appetite. Increasing weakness. He was evaluated that time and computed tomography scan showed evidence of significant effusions especially to the right side. As well as significant pneumonia with a cavitary lesion in the right upper lobe. During his stay he underwent bronchoscopy and to date samples are negative for fungus and pathology was negative for any malignancy. Was discharged home on antibiotic therapy but he failed rapidly in the outpatient setting. He became concerned and more short of breath. When she was crawling around at home because he was so short of breath. Because he presented back to the emergency center. If the admission he has evidence of extensive shortness of breath. He has hypoxia. It is evidence of marked worsening of his effusion to the right chest. There are plans for repeated thoracentesis to improve his significant dyspnea. He relates it is not having high-grade fevers chills or rigors or sweats. Certainly feels very poorly. Please see the consult note as dictated by nurse practitioner Jesus Manuel Vilma Chambers. Exam at this time shows a patient to be status post a thoracentesis. There is still markedly diminished breath sounds at the right base. He appears to be acutely all. But his appetite improved. He is trying to eat his lunch. No other acute changes are noted at the moment. Data review from the last day shows evidenceof pathogens evidence of any fungal pathogens. AFB was negative also. Cytology was negative from both a bronchoscopy as well as the thoracentesis. The patient has advanced COPD and is having exacerbation of this as well as worsening effusion. Patient seen by pulmonary critical care and their plans are in process. For antimicrobial therapy. He is a piperacillin tazobactam as well as Levaquin until we have further data. Receiving steroid therapy also. Nutritional supplementation is an important part of his recovery and is being continued. Review of Systems All systems: negative Constitutional: Reports anorexia, Reports chills, Reports fatigue, Reports lethargy, Reports malaise, Reports poor appetite, Reports weakness, Denies fever Eyes: denies blurred vision, denies pain Ears, nose, mouth and throat: Denies headache, Denies sore throat Cardiovascular: Reports shortness of breath, Denies chest pain, Denies edema, Denies leg edema Respiratory: Reports cough, Reports cough with sputum, Reports dyspnea, Reports home oxygen, Reports wheezing, Denies hemoptysis Gastrointestinal: Denies abdominal pain, Denies diarrhea, Denies nausea, Denies vomiting Genitourinary: Denies dysuria, Denies hematuria, Denies urinary frequency Musculoskeletal: Denies hot joints, Denies myalgias Integumentary: Denies pruritus, Denies rash Neurological: Denies numbness, Denies weakness Psychiatric: Denies anxiety, Denies depression Endocrine: Denies fatigue, Denies weight change Past Medical History Past Medical History: COPD, Pneumonia Additional Past Medical History / Comment(s): Chronic hypoxic respiratory failure on home O2 at 3 L nasal cannula History of Any Multi-Drug Resistant Organisms: None Reported Past Surgical History: No Surgical Hx Reported Additional Past Surgical History / Comment(s): bronchoscopy, thoracentesis Past Anesthesia/Blood Transfusion Reactions: No Reported Reaction Past Psychological History: No Psychological Hx Reported Smoking Status: Current every day smoker Past Alcohol Use History: Daily Additional Past Alcohol Use History / Comment(s): Patient is a smoker, started age 17 1 pack per day but since recent hospitalization smokes only 1 cig per day. He denies any medical marijuana, marijuana or street drug use. He does admit that he drinks beer on a regular basis and normally has 2-3( 24 0unce) cans cans per day . He served in the [employer] during the [place] war and was stationed in [place]. He denies any exposure to agent orange. He denies any recent travel. There are no pets in the home. He is living at home and step son is staying with him to help him out. 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 He does know there are mice in his home. Past Drug Use History: None Reported - Past Family History Father Family Medical History: Myocardial Infarction ([place]) Mother Family Medical History: No Reported History Medications and Allergies Home Medications Medication Instructions Recorded Confirmed Type Ipratropium-Albuterol Nebulize 3 ml INHALATION RT-QID 10/08/16 10/08/16 History [Duoneb 0.5 mg-3 mg/3 ml Soln] predniSONE See Taper PO DAILY 10/08/16 10/08/16 History Allergies Allergy/AdvReac Type Severity Reaction Status Date / Time No Known Allergies Allergy Verified 10/08/16 16:10 Physical Exam Vitals: Vital Signs Temp Pulse Pulse Pulse Resp BP Pulse Ox 10/10/16 07:20 81 10/10/16 07:07 82 10/10/16 07:00 96.3 F L 82 19 119/62 96 10/10/16 06:40 83 90 L 10/09/16 23:00 97.5 F L 94 18 115/57 97 10/09/16 20:16 95 10/09/16 20:05 91 10/09/16 20:01 95 18 10/09/16 15:24 95 10/09/16 15:10 95 95 10/09/16 15:00 98.4 F 95 22 88/62 95 Intake and Output 10/09/16 10/10/16 10/10/16 22:59 06:59 14:59 Intake Total 240 Output Total 325 Balance 240 -325 Intake: Oral 240 Output: Urine 325 Other: Voiding Method Toilet Toilet Urinal # Voids 325 0 # Bowel Movements 0 0 Gen: This is a 65-year-old male who looks much older than stated age. He is dyspneic with minimal movement in bed. HEENT: Head is atraumatic, normocephalic. Pupils equal, round. Sclerae is anicteric. Conjunctiva slightly pale. Mucous members of the mouth are dry. Dentition is in poor order and patient has only a few teeth left. No thrush noted. NECK: Supple. No JVD. No lymphadenopathy. No thyromegaly. LUNGS: Coarse crackles throughout with occasional scattered expiratory wheeze. HEART: Regular rate and rhythm. No murmur. ABDOMEN: Soft. Bowel sounds are present. No masses. No tenderness. EXTREMITIES: No pedal edema. No calf tenderness. Dorsalis pedis +2 bilaterally. NEUROLOGICAL: Patient is awake, alert and oriented x3. Cranial nerves 2 through 12 are grossly intact. Results Results: Laboratory Results WBC 8.3 k/uL (3.8-10.6) 10/10/16 08:33 RBC 4.34 m/uL (4.30-5.90) 10/10/16 08:33 Hgb 13.4 gm/dL (13.0-17.5) D 10/10/16 08:33 Hct 41.3 % (39.0-53.0) 10/10/16 08:33 MCV 95.2 fL (80.0-100.0) 10/10/16 08:33 MCH 30.9 pg (25.0-35.0) 10/10/16 08:33 MCHC 32.5 g/dL (31.0-37.0) 10/10/16 08:33 RDW 13.6 % (11.5-15.5) 10/10/16 08:33 Plt Count 135 k/uL (150-450) L 10/10/16 08:33 Neutrophils % 79 % 10/10/16 08:33 Lymphocytes % 11 % 10/10/16 08:33 Monocytes % 6 % 10/10/16 08:33 Eosinophils % 1 % 10/10/16 08:33 Basophils % 0 % 10/10/16 08:33 Neutrophils # 6.6 k/uL (1.3-7.7) 10/10/16 08:33 Lymphocytes # 0.9 k/uL (1.0-4.8) L 10/10/16 08:33 Monocytes # 0.5 k/uL (0-1.0) 10/10/16 08:33 Eosinophils # 0.1 k/uL (0-0.7) 10/10/16 08:33 Basophils # 0.0 k/uL (0-0.2) 10/10/16 08:33 PT 11.1 sec (9.0-12.0) 10/08/16 16:00 INR 1.1 (<1.1) 10/08/16 16:00 APTT 26.2 sec (22.0-30.0) 10/08/16 16:00 Sodium 132 mmol/L (137-145) L 10/10/16 08:33 Potassium 3.9 mmol/L (3.5-5.1) 10/10/16 08:33 Chloride 98 mmol/L (98-107) 10/10/16 08:33 Carbon Dioxide 25 mmol/L (22-30) 10/10/16 08:33 Anion Gap 9 mmol/L 10/10/16 08:33 BUN 6 mg/dL (9-20) L 10/10/16 08:33 Creatinine 0.51 mg/dL (0.66-1.25) L 10/10/16 08:33 Est GFR (MDRD) Af Amer >60 (>60 ml/min/1.73 sqM) 10/10/16 08:33 Est GFR (MDRD) Non-Af >60 (>60 ml/min/1.73 sqM) 10/10/16 08:33 Glucose 111 mg/dL (74-99) H 10/10/16 08:33 Calcium 8.5 mg/dL (8.4-10.2) 10/10/16 08:33 Magnesium 1.9 mg/dL (1.6-2.3) 10/08/16 16:00 Total Bilirubin 1.6 mg/dL (0.2-1.3) H 10/08/16 16:00 AST 23 U/L (17-59) 10/08/16 16:00 ALT 36 U/L (21-72) 10/08/16 16:00 Alkaline Phosphatase 177 U/L (38-126) H 10/08/16 16:00 Total Creatine Kinase 22 U/L (55-170) L 10/08/16 16:00 CK-MB (CK-2) 1.9 ng/mL (0.0-2.4) 10/08/16 16:00 CK-MB (CK-2) Rel Index 8.6 10/08/16 16:00 Troponin I <0.012 ng/mL (0.000-0.034) 10/08/16 16:00 NT-Pro-B Natriuret Pep 608 pg/mL 10/08/16 16:00 Total Protein 7.3 g/dL (6.3-8.2) 10/08/16 16:00 Albumin 3.6 g/dL (3.5-5.0) 10/08/16 16:00 Urine Color Yellow 10/09/16 23:45 Urine Appearance Clear (Clear) 10/09/16 23:45 Urine pH 6.0 (5.0-8.0) 10/09/16 23:45 Ur Specific [place] 1.030 (1.001-1.035) 10/09/16 23:45 Urine Protein Trace (Negative) H 10/09/16 23:45 Urine Glucose (UA) Negative (Negative) 10/09/16 23:45 Urine Ketones Trace (Negative) H 10/09/16 23:45 Urine Blood Negative (Negative) 10/09/16 23:45 Urine Nitrate Negative (Negative) 10/09/16 23:45 Urine Bilirubin Negative (Negative) 10/09/16 23:45 Urine Urobilinogen <2.0 mg/dL (<2.0) 10/09/16 23:45 Ur Leukocyte Esterase Negative (Negative) 10/09/16 23:45 Urine Opiates Screen Detected (NotDetected) H 10/09/16 23:45 Ur Oxycodone Screen Not Detected (NotDetected) 10/09/16 23:45 Urine Methadone Screen Not Detected (NotDetected) 10/09/16 23:45 Ur Propoxyphene Screen Not Detected (NotDetected) 10/09/16 23:45 Ur Barbiturates Screen Not Detected (NotDetected) 10/09/16 23:45 U Tricyclic Antidepress Not Detected (NotDetected) 10/09/16 23:45 Ur Phencyclidine Scrn Not Detected (NotDetected) 10/09/16 23:45 Ur Amphetamines Screen Not Detected (NotDetected) 10/09/16 23:45 U Methamphetamines Scrn Not Detected (NotDetected) 10/09/16 23:45 U Benzodiazepines Scrn Not Detected (NotDetected) 10/09/16 23:45 Urine Cocaine Screen Not Detected (NotDetected) 10/09/16 23:45 U Marijuana (THC) Screen Not Detected (NotDetected) 10/09/16 23:45 Influenza Type A RNA Not Detected (Not Detectd) 10/09/16 11:30 Influenza Type B (PCR) Not Detected (Not Detectd) 10/09/16 11:30 CBC & Chem 7: 10/10/16 08:33 10/10/16 08:33 Labs: Abnormal Lab Results - Last 24 Hours (Table) 10/09/16 10/10/16 10/10/16 Range/Units 23:45 08:33 08:33 Plt Count 135 L (150-450) k/uL Lymphocytes # 0.9 L (1.0-4.8) k/uL Sodium 132 L (137-145) mmol/L BUN 6 L (9-20) mg/dL Creatinine 0.51 L (0.66-1.25) mg/dL Glucose 111 H (74-99) mg/dL Urine Protein Trace H (Negative) Urine Ketones Trace H (Negative) Urine Opiates Screen Detected H (NotDetected) Assessment and Plan Plan: Is is a 65-year-old male with COPD exacerbation and worsening pleural effusion. He has been seen by pulmonary medicine with plans for ultrasound- guided thoracentesis. He is currently on Zosyn and Levaquin which will be continued. Protein supplement for severe protein calorie malnutrition. Continue supportive care. Further recommendations as patient progresses. The above dictated assessment and findings were discussed with Dr. Ricci. The impression and plan of care have been directed as dictated. Vilma Cordova nurse practitioner acting as scribe for Dr. Ricci. Time with Patient: Greater than 30
[2016-10-10 16:56] LABS: RBC, Body Fluid 1520 /uL
--- NOTE | 2016-10-10 19:09 | PN ---
DATE OF SERVICE: 10/10/2016 This 65-year-old gentleman was admitted with bilateral pneumonia, also had right upper lobe cavitary lesion possibly secondary to aspergilloma or aspiration process. The patient also had a pleural effusion. The patient had chest ultrasound done and ultrasound guided thoracocentesis was done by Radiology with about 1.4 liters of fluid removed. Otherwise, repeat chest x-ray was reviewed. Still showed bilateral airspace disease. Pulmonary is following the patient closely. Infectious Disease evaluation is in progress at this time. PAST MEDICAL HISTORY: Reviewed. REVIEW OF SYSTEMS: CARDIOVASCULAR: No angina. RESPIRATORY: As mentioned earlier. GI: As mentioned earlier. : No dysuria. NERVOUS SYSTEM: No numbness or weakness. Current medications are reviewed and include: 1. Hawley 5 mg q.6 p.r.n. 2. DuoNeb q.i.d. and p.r.n. 3. Pulmicort 0.5 mg b.i.d. 4. Folic acid 1 mg daily. 5. Heparin 5000 subcu b.i.d. 6. Ativan 1 mg p.o. q.h.s. 7. Multivitamins. 8. Protonix 40 mg. 9. Zosyn 3.375 IV q.8. 10. Prednisone. 11. Restoril 50 mg p.o. q.h.s. 12. Thiamine 100 mg p.o. daily. PHYSICAL EXAMINATION: Patient is alert and oriented x3. Pulse 96, blood pressure 101/57, respirations 18, temperature is normal. Pulse ox is 92% on 4-L. HEENT: Conjunctivae normal. Oral mucosa moist. NECK: No jugular venous distention. No carotid bruit. No lymph node enlargement. CARDIOVASCULAR: S1 and S2, muffled. RESPIRATORY: Breath sounds diminished at the bases. Bilateral scattered rhonchi and crackles. Expiratory wheezing also present. ABDOMEN: Soft, nontender. No mass palpable. LEGS: No edema, no swelling. NERVOUS SYSTEM: Higher function as mentioned. Moves all four limbs. No focal motor deficits. LYMPHATIC: No lymphadenopathy in the neck, axillae or groin. SKIN: No ulcer, rash or bleeding. LABS: Platelets are 135. Sodium 132. Other labs are noted. ASSESSMENT: 1. Bilateral pneumonia with left base and right upper lobe pneumonia with failure of outpatient treatment with possible sepsis with failure of outpatient treatment. 2. Chronic obstructive pulmonary disease, acute exacerbation. 3. Right pleural effusion, status post thoracocentesis 1.45 liters. 4. Increased WBC. 5. Right upper lobe cavitary lesion, possibly aspergilloma versus anaerobic pneumonia. 6. History of EtOH. 7. History of nicotine dependence. 8. Hyponatremia. 9. Increased random blood sugar. 10. Increased bilirubin. 11. Increased serum alkaline phosphatase. 12. Mild to moderate protein calorie malnutrition with a body mass index of 19.6. 13. Chronic hypoxia, hypoxic respiratory failure, on home oxygen. 14. History of right pleural effusion with thoracentesis previously. 15. FULL CODE. RECOMMENDATIONS AND DISCUSSION: This 65-year-old gentleman presented with multiple complex medical issues, we will monitor patient closely. Continue the current medications. Symptomatic treatment. Otherwise prognosis guarded. I would recommend bronchodilators. Await cytology and culture. Otherwise, continue with the rest of the medications. DVT prophylaxis. Further recommendations to follow.
[2016-10-10] MEDS: LEVOFLOXACIN 750MG-D5W PMX 750 MG in DEXTROSE/WATER 1 150ML.BAG IVPB SCH (21:08)
[2016-10-11] MEDS: SODIUM CHLORIDE 0.9% 1,000 ML IV SCH ×2 (05:18→17:34)
[2016-10-11] MEDS: BUDESONIDE 0.5 MG/2 ML NEBU INHALATION SCH ×2 (08:00→20:07)
[2016-10-11] MEDS: IPRATROPIUM-ALBUTEROL 3 ML NEB INHALATION SCH ×5 (08:00→20:08)
[2016-10-11 08:04] LABS: Basophils % (A) 0 %; CH 32.3; CHCM 34.2; Eosinophils # (A) 0.2 k/uL (0-0.7); Eosinophils % (A) 2 %; HCT 38.2 % (39.0-53.0); HDW 2.52; HGB 12.6 gm/dL (13.0-17.5); Luc # (Auto) 0.19; Luc % (Auto) 3; Lymphocytes % (A) 16 %; MCH 31.1 pg (25.0-35.0); MCHC 32.8 g/dL (31.0-37.0); MCV 94.9 fL (80.0-100.0); Mean Platelet Volume 6.7; Monocytes # (A) 0.4 k/uL (0-1.0); Monocytes % (A) 7 %; Neutrophils # (A) 4.5 k/uL (1.3-7.7); Neutrophils % (A) 72 %; RBC 4.03 m/uL (4.30-5.90); RDW 13.7 % (11.5-15.5); WBC 6.3 k/uL (3.8-10.6); WBC (Perox) 6.65
[2016-10-11 08:17] LABS: Anion Gap 8 mmol/L; Blood Urea Nitrogen 8 mg/dL (9-20); Calcium 8.4 mg/dL (8.4-10.2); Carbon Dioxide 27 mmol/L (22-30); Chloride 98 mmol/L (98-107); Glucose 96 mg/dL (74-99); Non-African American GFR(MDRD) >60 (>60 ml/min/1.73 sqM); Potassium 3.8 mmol/L (3.5-5.1); Sodium 133 mmol/L (137-145)
[2016-10-11] MEDS: HEPARIN SODIUM,PORCINE 5,000 UNIT/ML 1 ML VIAL SQ SCH ×2 (08:49→20:17)
[2016-10-11] MEDS: PANTOPRAZOLE 40 MG TABLET PO SCH (08:50)
[2016-10-11] MEDS: PIPERACILLIN-TAZOBACTAM 3.375 GM in DEXTROSE/WATER 1 50ML.BAG IVPB SCH ×3 (08:50→23:00)
[2016-10-11] MEDS: predniSONE 10 MG TAB PO SCH (08:50)
[2016-10-11] MEDS ORDERED: IPRATROPIUM-ALBUTEROL 3 ML NEB INHALATION PRN (13:11)
--- NOTE | 2016-10-11 13:15 | P.PN ---
Subjective Principal diagnosis: Right upper lobe cavitary pneumonia Patient seen and examined. Patient states he had a difficult morning and was very short of breath. He states the breathing treatments help for a while. He is coughing up phlegm. He underwent thoracentesis yesterday with 1450 mL removed. Objective - Vital Signs Vital signs: Vital Signs Temp 97.2 F L 10/11/16 07:00 Pulse 104 H 10/11/16 11:50 Resp 18 10/11/16 07:00 BP 114/82 10/11/16 07:00 Pulse Ox 98 10/11/16 07:00 Intake & Output 10/10/16 10/11/16 10/11/16 18:59 06:59 18:59 Output Total 400 Balance -400 Output: Urine 400 Other: Voiding Method Toilet Urinal # Voids 4 1 - Exam Gen: A+OX3, NAD CV: RRR, s1/s2 Lungs: coarse breath sounds bilaterally Abd: soft, NT/ND, +BS Ext. no edema - Labs CBC & Chem 7: 10/11/16 07:41 10/11/16 07:41 Labs: Abnormal Lab Results - Last 24 Hours (Table) 10/11/16 10/11/16 Range/Units 07:41 07:41 RBC 4.03 L (4.30-5.90) m/uL Hgb 12.6 L (13.0-17.5) gm/dL Hct 38.2 L (39.0-53.0) % Plt Count 121 L (150-450) k/uL Sodium 133 L (137-145) mmol/L BUN 8 L (9-20) mg/dL Creatinine 0.52 L (0.66-1.25) mg/dL Microbiology - Last 24 Hours (Table) 10/10/16 12:55 Gram Stain - Preliminary Pleural Fluid Body Fluid Culture - Preliminary 10/10/16 12:55 Anaerobic Culture - Preliminary Pleural Fluid Assessment and Plan Plan: Acute on chronic hypoxic respiratory failure AECOPD Aspiration pneumonia RUL cavitary lung lesion Right pleural effusion, s/p thoracentesis Alcohol abuse O2 to maintain sat > or = 88% Fluid for cytology, cultures ABX per ID Thoracentesis fluid apparently was not sent for LDH and total protein Awaiting cultures and cytology Bronchodilators and Pulmicort Add Perforomist Flutter therapy IV Solumedrol Sputum culture GI and DVT prophylaxis
[2016-10-11] MEDS: FOLIC ACID 1 MG TAB PO SCH (14:57)
[2016-10-11] MEDS: HYDROcodone/APAP 5-325MG 1 EACH TAB PO PRN ×2 (14:57→20:35)
[2016-10-11] MEDS: THIAMINE 100 MG TAB PO SCH (14:58)
[2016-10-11] MEDS: MULTIVITAMINS, THERA 1 EACH TAB PO SCH (14:58)
--- NOTE | 2016-10-11 17:33 | PN ---
DATE OF SERVICE: 10/11/2016 This 65-year-old gentleman who was admitted with bilateral pneumonia with left base and right upper pneumonia with failure of outpatient also had possible sepsis also. The patient also had right pleural effusion aspiration. The results are pending at this time. Infectious disease and pulmonary are following the patient closely. The patient is on IV steroids. PAST MEDICAL HISTORY: Reviewed. REVIEW OF SYSTEMS: Noted. PHYSICAL EXAMINATION: The patient is alert and oriented times three. Pulse 104, blood pressure 114/82, respirations 18, temperature 97.2, pulse ox 98% on 2 L. HEENT: Conjunctivae normal. NECK: No jugular venous distention. CARDIOVASCULAR: S1, S2 muffled. RESPIRATORY: Breath sounds diminished in the bases. A few scattered rhonchi and crackles. Respiratory wheezing also present. ABDOMEN: Soft, nontender. Legs: No edema, no swelling. Nervous system: No focal deficits. LABS: WBC 6.3, Hemoglobin 10.6, platelets 121. Sodium 133. ASSESSMENT: 1. Bilateral pneumonia with left base and right upper lobe pneumonia with failure of outpatient treatment with possible sepsis, present on admission. 2. Chronic obstructive pulmonary disease, acute exacerbation. 3. Right pleural effusion, status post thoracocentesis 1.45 liters. 4. Increased WBC. 5. Right upper lobe cavitary lesion possibly aspergilloma versus pneumonia. 6. History of ETOH. 7. History of nicotine dependence. 8. Hyponatremia. 9. Increased random blood sugar. 10. Increased bilirubin. 11. Increased serum alkaline phosphatase. 12. Mild to moderate protein calorie malnutrition with body mass index of 19.6. 13. Chronic hypoxic respiratory failure on home oxygen. 14. History of right pleural effusion with thoracocentesis previously. 15. FULL CODE. RECOMMENDATIONS AND DISCUSSION: In this 65 -year-old gentleman who presented with multiple complex medical issues, we will monitor the patient closely. Continue the current medications. Continue symptomatic treatment. Continue the bronchodilators. I would also recommend empiric antibiotics. Closely follow with infectious disease and pulmonary. Await pleural fluid aspiration reports. Guarded prognosis. Further recommendations to follow. [facility]
[2016-10-11] MEDS: FORMOTEROL FUMARATE 20 MCG/2 ML NEBU INHALATION SCH (20:08)
[2016-10-11] MEDS: LEVOFLOXACIN 750 MG TAB PO SCH (20:17)
[2016-10-11] MEDS: methylPREDNISolone SOD SUCCI 125 MG/2 ML VIAL IV SCH (20:18)
[2016-10-11 21:22] LABS: Glucose,Whole Blood 118 mg/dL (75-99)
--- NOTE | 2016-10-11 22:21 | P.PN ---
Subjective Principal diagnosis: shortness of breath 65-year-old male who presents to hospital with increasing shortness of breath. He was recently hospitalized at this facility where he was on evidence of an exacerbation of his COPD with pneumonia. If progressive weight loss. Decreased appetite. Increasing weakness. He was evaluated that time and computed tomography scan showed evidence of significant effusions especially to the right side. As well as significant pneumonia with a cavitary lesion in the right upper lobe. During his stay he underwent bronchoscopy and to date samples are negative for fungus and pathology was negative for any malignancy. Was discharged home on antibiotic therapy but he failed rapidly in the outpatient setting. He became concerned and more short of breath. When she was crawling around at home because he was so short of breath. Because he presented back to the emergency center. If the admission he has evidence of extensive shortness of breath. He has hypoxia. It is evidence of marked worsening of his effusion to the right chest. There are plans for repeated thoracentesis to improve his significant dyspnea. He relates it is not having high-grade fevers chills or rigors or sweats. Certainly feels very poorly. Please see the consult note as dictated by nurse practitioner Jesus Manuel Vilma Chambers. Exam at this time shows a patient to be status post a thoracentesis. There is still markedly diminished breath sounds at the right base. He appears to be acutely all. But his appetite improved. He is trying to eat his lunch. No other acute changes are noted at the moment. Data review from the last day shows evidence of no pathogens, no evidence of any fungal pathogens. AFB was negative also. Cytology was negative from both a bronchoscopy as well as the thoracentesis. The patient has advanced COPD and is having exacerbation of this as well as worsening effusion. Patient seen by pulmonary critical care and their plans are in process. For antimicrobial therapy. He is a piperacillin tazobactam as well as Levaquin until we have further data. Receiving steroid therapy also. Nutritional supplementation is an important part of his recovery and is being continued. patient does not feel well today. Objective - Vital Signs Vital signs: Vital Signs Temp 97.2 F L 10/11/16 15:00 Pulse 100 10/11/16 20:32 Resp 18 10/11/16 15:00 BP 103/59 10/11/16 15:00 Pulse Ox 94 L 10/11/16 15:00 Intake & Output 10/11/16 10/11/16 10/12/16 06:59 18:59 06:59 Intake Total 500 Output Total 400 Balance -400 500 Intake: Oral 500 Output: Urine 400 Other: # Voids 1 - Exam Gen: This is a 65-year-old male who looks much older than stated age. He is dyspneic with minimal movement in bed. HEENT: Head is atraumatic, normocephalic. Pupils equal, round. Sclerae is anicteric. Conjunctiva slightly pale. Mucous members of the mouth are dry. Dentition is in poor order and patient has only a few teeth left. No thrush noted. NECK: Supple. No JVD. No lymphadenopathy. No thyromegaly. LUNGS: Coarse crackles throughout with occasional scattered expiratory wheeze. diminished breath sounds to the right base HEART: Regular rate and rhythm. No murmur. ABDOMEN: Soft. Bowel sounds are present. No masses. No tenderness. EXTREMITIES: No pedal edema. No calf tenderness. Dorsalis pedis +2 bilaterally. NEUROLOGICAL: Patient is awake, alert and oriented x3. - Labs CBC & Chem 7: 10/11/16 07:41 10/11/16 07:41 Labs: Abnormal Lab Results - Last 24 Hours (Table) 10/11/16 10/11/16 10/11/16 Range/Units 07:41 07:41 21:19 RBC 4.03 L (4.30-5.90) m/uL Hgb 12.6 L (13.0-17.5) gm/dL Hct 38.2 L (39.0-53.0) % Plt Count 121 L (150-450) k/uL Sodium 133 L (137-145) mmol/L BUN 8 L (9-20) mg/dL Creatinine 0.52 L (0.66-1.25) mg/dL POC Glucose (mg/dL) 118 H (75-99) mg/dL Microbiology - Last 24 Hours (Table) 10/10/16 12:55 Gram Stain - Preliminary Pleural Fluid Body Fluid Culture - Preliminary 10/10/16 12:55 Anaerobic Culture - Preliminary Pleural Fluid Laboratory Results WBC 6.3 k/uL (3.8-10.6) 10/11/16 07:41 RBC 4.03 m/uL (4.30-5.90) L 10/11/16 07:41 Hgb 12.6 gm/dL (13.0-17.5) L 10/11/16 07:41 Hct 38.2 % (39.0-53.0) L 10/11/16 07:41 MCV 94.9 fL (80.0-100.0) 10/11/16 07:41 MCH 31.1 pg (25.0-35.0) 10/11/16 07:41 MCHC 32.8 g/dL (31.0-37.0) 10/11/16 07:41 RDW 13.7 % (11.5-15.5) 10/11/16 07:41 Plt Count 121 k/uL (150-450) L 10/11/16 07:41 Neutrophils % 72 % 10/11/16 07:41 Lymphocytes % 16 % 10/11/16 07:41 Monocytes % 7 % 10/11/16 07:41 Eosinophils % 2 % 10/11/16 07:41 Basophils % 0 % 10/11/16 07:41 Neutrophils # 4.5 k/uL (1.3-7.7) 10/11/16 07:41 Lymphocytes # 1.0 k/uL (1.0-4.8) 10/11/16 07:41 Monocytes # 0.4 k/uL (0-1.0) 10/11/16 07:41 Eosinophils # 0.2 k/uL (0-0.7) 10/11/16 07:41 Basophils # 0.0 k/uL (0-0.2) 10/11/16 07:41 PT 11.1 sec (9.0-12.0) 10/08/16 16:00 INR 1.1 (<1.1) 10/08/16 16:00 APTT 26.2 sec (22.0-30.0) 10/08/16 16:00 Sodium 133 mmol/L (137-145) L 10/11/16 07:41 Potassium 3.8 mmol/L (3.5-5.1) 10/11/16 07:41 Chloride 98 mmol/L (98-107) 10/11/16 07:41 Carbon Dioxide 27 mmol/L (22-30) 10/11/16 07:41 Anion Gap 8 mmol/L 10/11/16 07:41 BUN 8 mg/dL (9-20) L 10/11/16 07:41 Creatinine 0.52 mg/dL (0.66-1.25) L 10/11/16 07:41 Est GFR (MDRD) Af Amer >60 (>60 ml/min/1.73 sqM) 10/11/16 07:41 Est GFR (MDRD) Non-Af >60 (>60 ml/min/1.73 sqM) 10/11/16 07:41 Glucose 96 mg/dL (74-99) 10/11/16 07:41 POC Glucose (mg/dL) 118 mg/dL (75-99) H 10/11/16 21:19 POC Glu [employer] Deirdre Ham 10/11/16 21:19 Calcium 8.4 mg/dL (8.4-10.2) 10/11/16 07:41 Magnesium 1.9 mg/dL (1.6-2.3) 10/08/16 16:00 Total Bilirubin 1.6 mg/dL (0.2-1.3) H 10/08/16 16:00 AST 23 U/L (17-59) 10/08/16 16:00 ALT 36 U/L (21-72) 10/08/16 16:00 Alkaline Phosphatase 177 U/L (38-126) H 10/08/16 16:00 Total Creatine Kinase 22 U/L (55-170) L 10/08/16 16:00 CK-MB (CK-2) 1.9 ng/mL (0.0-2.4) 10/08/16 16:00 CK-MB (CK-2) Rel Index 8.6 10/08/16 16:00 Troponin I <0.012 ng/mL (0.000-0.034) 10/08/16 16:00 NT-Pro-B Natriuret Pep 608 pg/mL 10/08/16 16:00 Total Protein 7.3 g/dL (6.3-8.2) 10/08/16 16:00 Albumin 3.6 g/dL (3.5-5.0) 10/08/16 16:00 Urine Color Yellow 10/09/16 23:45 Urine Appearance Clear (Clear) 10/09/16 23:45 Urine pH 6.0 (5.0-8.0) 10/09/16 23:45 Ur Specific [place] 1.030 (1.001-1.035) 10/09/16 23:45 Urine Protein Trace (Negative) H 10/09/16 23:45 Urine Glucose (UA) Negative (Negative) 10/09/16 23:45 Urine Ketones Trace (Negative) H 10/09/16 23:45 Urine Blood Negative (Negative) 10/09/16 23:45 Urine Nitrate Negative (Negative) 10/09/16 23:45 Urine Bilirubin Negative (Negative) 10/09/16 23:45 Urine Urobilinogen <2.0 mg/dL (<2.0) 10/09/16 23:45 Ur Leukocyte Esterase Negative (Negative) 10/09/16 23:45 Fluid Source Pleural 10/10/16 12:55 Fluid Color Yellow 10/10/16 12:55 Fluid Appearance Cloudy 10/10/16 12:55 Fluid RBC 1520 /uL 10/10/16 12:55 Fluid Nucleated Cells 460 /uL 10/10/16 12:55 Fluid Polynuclear WBCs 69 % 10/10/16 12:55 Fluid Mononuclear WBCs 31 % 10/10/16 12:55 Urine Opiates Screen Detected (NotDetected) H 10/09/16 23:45 Ur Oxycodone Screen Not Detected (NotDetected) 10/09/16 23:45 Urine Methadone Screen Not Detected (NotDetected) 10/09/16 23:45 Ur Propoxyphene Screen Not Detected (NotDetected) 10/09/16 23:45 Ur Barbiturates Screen Not Detected (NotDetected) 10/09/16 23:45 U Tricyclic Antidepress Not Detected (NotDetected) 10/09/16 23:45 Ur Phencyclidine Scrn Not Detected (NotDetected) 10/09/16 23:45 Ur Amphetamines Screen Not Detected (NotDetected) 10/09/16 23:45 U Methamphetamines Scrn Not Detected (NotDetected) 10/09/16 23:45 U Benzodiazepines Scrn Not Detected (NotDetected) 10/09/16 23:45 Urine Cocaine Screen Not Detected (NotDetected) 10/09/16 23:45 U Marijuana (THC) Screen Not Detected (NotDetected) 10/09/16 23:45 Influenza Type A RNA Not Detected (Not Detectd) 10/09/16 11:30 Influenza Type B (PCR) Not Detected (Not Detectd) 10/09/16 11:30 Microbiology 10/10/16 12:55 Pleural Fluid Gram Stain - Preliminary 10/10/16 12:55 Pleural Fluid Body Fluid Culture - Preliminary 10/08/16 16:00 Blood Blood Culture - Preliminary No Growth after 72 hours 10/10/16 12:55 Pleural Fluid Anaerobic Culture - Preliminary 10/08/16 17:42 Sputum Gram Stain - Final 10/08/16 17:42 Sputum Sputum Culture - Final Assessment and Plan (1) Acute exacerbation of chronic obstructive airways disease Narrative/Plan: 65-year-old male presents to hospital with recurrence of his significant shortness of breath. He became so weak he was crawling on the floor to call EMS to come and get him. A admission he has evidence of a large effusion to the right. He is undergone thoracentesis and feels just slightly better. Still feels quite weak. Does have a bit of sensitivity humor today, but is very worried about his overall status. The case is discussed with the hospitalist. Given his ongoing significant debility, the extensive effusion, and the lack of prior studies with definitive diagnosis. Would suggest having cardiothoracic surgery evaluate the patient for the possibility of a videoscopic evaluation of the pleural space, which would allow biopsies of the pleural tissue and further evaluation. Significant concern this point in time would be to a pleural based malignancy. This is of concern given his significant weight loss over the last several months and is progressive and extensive debility. Status: Acute (2) Bilateral pleural effusion Status: Acute (3) Cavitary pneumonia Status: Acute
[2016-10-12] MEDS: SODIUM CHLORIDE 0.9% 1,000 ML IV SCH ×3 (05:02→20:12)
[2016-10-12] MEDS: FORMOTEROL FUMARATE 20 MCG/2 ML NEBU INHALATION SCH ×2 (07:25→19:59)
[2016-10-12] MEDS: BUDESONIDE 0.5 MG/2 ML NEBU INHALATION SCH ×2 (07:25→19:59)
[2016-10-12] MEDS: IPRATROPIUM-ALBUTEROL 3 ML NEB INHALATION SCH ×4 (07:25→19:59)
[2016-10-12 07:45] LABS: Glucose,Whole Blood 132 mg/dL (75-99)
[2016-10-12] MEDS: PIPERACILLIN-TAZOBACTAM 3.375 GM in DEXTROSE/WATER 1 50ML.BAG IVPB SCH ×3 (09:16→23:41)
[2016-10-12] MEDS: INSULIN LISPRO (humaLOG) 300 UNIT/3 ML VIAL SQ SCH ×4 (09:17→22:00)
[2016-10-12] MEDS: methylPREDNISolone SOD SUCCI 125 MG/2 ML VIAL IV SCH ×2 (09:17→20:11)
[2016-10-12] MEDS: PANTOPRAZOLE 40 MG TABLET PO SCH (09:17)
[2016-10-12] MEDS: HEPARIN SODIUM,PORCINE 5,000 UNIT/ML 1 ML VIAL SQ SCH ×2 (09:17→20:11)
[2016-10-12 09:52] LABS: Anion Gap 12 mmol/L; Blood Urea Nitrogen 8 mg/dL (9-20); Calcium 9.2 mg/dL (8.4-10.2); Carbon Dioxide 22 mmol/L (22-30); Chloride 100 mmol/L (98-107); Glucose 204 mg/dL (74-99); Non-African American GFR(MDRD) >60 (>60 ml/min/1.73 sqM); Potassium 4.2 mmol/L (3.5-5.1); Sodium 134 mmol/L (137-145)
--- NOTE | 2016-10-12 10:13 | XR ---
EXAMINATION TYPE: XR chest 2V DATE OF EXAM: 10/12/2016 9:48 AM COMPARISON: Prior chest x-ray September HISTORY: Pleural effusion TECHNIQUE: Frontal and lateral views of the chest are obtained. FINDINGS: Increased AP diameter of the chest is again noted, interstitium is increased. No evident p neumothorax. Blunting of the costophrenic angles present bilaterally as on prior exam. Perihilar incr eased density persists. IMPRESSION: Similar findings to prior exam. Pleural effusions and associated atelectasis, difficult to exclude airspace disease, underlying mass, there are likely loculated pockets of fluid
[2016-10-12 10:27] LABS: Basophils % (A) 0 %; CHCM 33.4; Eosinophils % (A) 0 %; HCT 41.8 % (39.0-53.0); Luc # (Auto) 0.08; Luc % (Auto) 1; Lymphocytes # (A) 0.6 k/uL (1.0-4.8); Lymphocytes % (A) 9 %; MCH 32.1 pg (25.0-35.0); MCHC 33.4 g/dL (31.0-37.0); MCV 96.2 fL (80.0-100.0); Mean Platelet Volume 7.4; Monocytes # (A) 0.3 k/uL (0-1.0); Monocytes % (A) 4 %; Neutrophils # (A) 5.8 k/uL (1.3-7.7); Neutrophils % (A) 86 %; RBC 4.34 m/uL (4.30-5.90); RDW 13.6 % (11.5-15.5); WBC 6.8 k/uL (3.8-10.6)
--- NOTE | 2016-10-12 11:41 | P.PN ---
Subjective Principal diagnosis: Right upper lobe cavitary lesion Patient seen and examined. Patient states he is getting frustrated because he is not feeling better. He states he is very tired. He is agreeable to discuss surgical options with a thoracic surgeon. Objective - Vital Signs Vital signs: Vital Signs Temp 96.7 F L 10/12/16 07:00 Pulse 103 H 10/12/16 07:41 Resp 18 10/12/16 07:00 BP 111/66 10/12/16 07:00 Pulse Ox 95 10/12/16 07:00 Intake & Output 10/11/16 10/12/16 10/12/16 18:59 06:59 18:59 Intake Total 500 240 Output Total 800 Balance 500 -560 Intake: Oral 500 240 Output: Urine 800 - Exam Gen: A+OX3, NAD CV: RRR, s1/s2 Lungs: coarse breath sounds bilaterally Abd: soft, NT/ND, +BS Ext. no edema - Labs CBC & Chem 7: 10/12/16 09:16 10/12/16 09:16 Labs: Abnormal Lab Results - Last 24 Hours (Table) 10/11/16 10/12/16 10/12/16 Range/Units 21:19 07:44 09:16 Lymphocytes # 0.6 L (1.0-4.8) k/uL Sodium (137-145) mmol/L BUN (9-20) mg/dL Creatinine (0.66-1.25) mg/dL Glucose (74-99) mg/dL POC Glucose (mg/dL) 118 H 132 H (75-99) mg/dL 10/12/16 Range/Units 09:16 Lymphocytes # (1.0-4.8) k/uL Sodium 134 L (137-145) mmol/L BUN 8 L (9-20) mg/dL Creatinine 0.40 L (0.66-1.25) mg/dL Glucose 204 H (74-99) mg/dL POC Glucose (mg/dL) (75-99) mg/dL Microbiology - Last 24 Hours (Table) 10/10/16 12:55 Gram Stain - Preliminary Pleural Fluid Body Fluid Culture - Preliminary Assessment and Plan Plan: Acute on chronic hypoxic respiratory failure AECOPD Aspiration pneumonia RUL cavitary lung lesion Right pleural effusion, s/p thoracentesis Alcohol abuse O2 to maintain sat > or = 88% Fluid for cytology, cultures ABX per ID Thoracentesis fluid apparently was not sent for LDH and total protein Awaiting cultures and cytology Bronchodilators and Pulmicort Continue Perforomist Flutter therapy IV Solumedrol Sputum culture GI and DVT prophylaxis Consult thoracic surgery
[2016-10-12 12:00] LABS: Glucose,Whole Blood 125 mg/dL (75-99)
[2016-10-12] MEDS: FOLIC ACID 1 MG TAB PO SCH (13:18)
[2016-10-12] MEDS: MULTIVITAMINS, THERA 1 EACH TAB PO SCH (13:18)
[2016-10-12] MEDS: THIAMINE 100 MG TAB PO SCH (13:18)
--- NOTE | 2016-10-12 15:54 | P.GSCN ---
History of Present Illness Consult date: 10/12/16 Reason for Consult: Right upper lobe cavitary lesion Requesting physician: Yimi Finley History of present illness: Patient is a 65 years old gentleman with past medical history of COPD, tobacco and alcohol abuse admitted with shortness of breath and generalized fatigue. Patient was recently in the hospital diagnosed with pneumonia and treated accordingly. He failed outpatient therapy. During his last hospitalization, CT chest was done that showed a right upper lobe cavitary lesions along with extensive emphysematous changes and bilateral pleural effusions. Bronchoscopy was done as well as right thoracentesis and those are essentially negative for malignancy and failed to show any pathogen. In particular AFB, TB and fungal cultures are negative to date. Another thoracocentesis was done 48 hours ago and he is admitted 1.4 L of fluid. Culture and cytology are pending. No biochemical analysis performed on the fluid. Patient has productive sputum continuously with no vicki hemoptysis. He denies fevers or chills. Review of Systems - Constitutional Reports malaise, Reports poor appetite, Reports weight loss - Respiratory Reports cough with sputum, Reports dyspnea, Reports excessive sputum, Reports home oxygen, Reports respiratory infections Past Medical History Past Medical History: COPD, Pneumonia Additional Past Medical History / Comment(s): Chronic hypoxic respiratory failure on home O2 at 3 L nasal cannula History of Any Multi-Drug Resistant Organisms: None Reported Past Surgical History: No Surgical Hx Reported Additional Past Surgical History / Comment(s): bronchoscopy, thoracentesis Past Anesthesia/Blood Transfusion Reactions: No Reported Reaction Past Psychological History: No Psychological Hx Reported Smoking Status: Current every day smoker Past Alcohol Use History: Daily Additional Past Alcohol Use History / Comment(s): Patient is a smoker, started age 17 1 pack per day but since recent hospitalization smokes only 1 cig per day. He denies any medical marijuana, marijuana or street drug use. He does admit that he drinks beer on a regular basis and normally has 2-3( 24 0unce) cans cans per day . 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 He denies any exposure to agent orange. He denies any recent travel. There are no pets in the home. He is living at home and step son is staying with him to help him out. 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 He does know there are mice in his home. Past Drug Use History: None Reported - Past Family History Father Family Medical History: Myocardial Infarction ([place]) Mother Family Medical History: No Reported History Medications and Allergies Home Medications Medication Instructions Recorded Confirmed Type Ipratropium-Albuterol Nebulize 3 ml INHALATION RT-QID 10/08/16 10/08/16 History [Duoneb 0.5 mg-3 mg/3 ml Soln] predniSONE See Taper PO DAILY 10/08/16 10/08/16 History Allergies Allergy/AdvReac Type Severity Reaction Status Date / Time No Known Allergies Allergy Verified 10/08/16 16:10 Surgical - Exam Vital Signs Temp Pulse Resp BP Pulse Ox 97.5 F L 108 H 20 138/69 95 10/08/16 15:08 10/08/16 15:08 10/08/16 15:08 10/08/16 15:08 10/08/16 15:08 - General no distress - Respiratory right: dullness - Rectum Deferred Results - Labs 10/12/16 09:16 10/12/16 09:16 Abnormal Lab Results - Last 24 Hours (Table) 10/11/16 10/12/16 10/12/16 Range/Units 21:19 07:44 09:16 Lymphocytes # 0.6 L (1.0-4.8) k/uL Sodium (137-145) mmol/L BUN (9-20) mg/dL Creatinine (0.66-1.25) mg/dL Glucose (74-99) mg/dL POC Glucose (mg/dL) 118 H 132 H (75-99) mg/dL 10/12/16 10/12/16 Range/Units 09:16 11:59 Lymphocytes # (1.0-4.8) k/uL Sodium 134 L (137-145) mmol/L BUN 8 L (9-20) mg/dL Creatinine 0.40 L (0.66-1.25) mg/dL Glucose 204 H (74-99) mg/dL POC Glucose (mg/dL) 125 H (75-99) mg/dL Microbiology - Last 24 Hours (Table) 10/10/16 12:55 Gram Stain - Preliminary Pleural Fluid Body Fluid Culture - Preliminary Diabetes panel 10/12/16 Range/Units 09:16 Sodium 134 L (137-145) mmol/L Potassium 4.2 (3.5-5.1) mmol/L Chloride 100 (98-107) mmol/L Carbon Dioxide 22 (22-30) mmol/L BUN 8 L (9-20) mg/dL Creatinine 0.40 L (0.66-1.25) mg/dL Glucose 204 H (74-99) mg/dL Calcium 9.2 (8.4-10.2) mg/dL Calcium panel 10/12/16 Range/Units 09:16 Calcium 9.2 (8.4-10.2) mg/dL Pituitary panel 10/12/16 Range/Units 09:16 Sodium 134 L (137-145) mmol/L Potassium 4.2 (3.5-5.1) mmol/L Chloride 100 (98-107) mmol/L Carbon Dioxide 22 (22-30) mmol/L BUN 8 L (9-20) mg/dL Creatinine 0.40 L (0.66-1.25) mg/dL Glucose 204 H (74-99) mg/dL Calcium 9.2 (8.4-10.2) mg/dL Adrenal panel 10/12/16 Range/Units 09:16 Sodium 134 L (137-145) mmol/L Potassium 4.2 (3.5-5.1) mmol/L Chloride 100 (98-107) mmol/L Carbon Dioxide 22 (22-30) mmol/L BUN 8 L (9-20) mg/dL Creatinine 0.40 L (0.66-1.25) mg/dL Glucose 204 H (74-99) mg/dL Calcium 9.2 (8.4-10.2) mg/dL - Imaging CT scan - chest: report reviewed, image reviewed Additional studies: All cultures reviewed and are negative to date Assessment and Plan Plan: 65 years old gentleman with diffuse severe emphysematous changes of COPD with home oxygen with relapse of pneumonia, recurrent right-sided effusion and right upper lobe cavitary lesion. I am supportive of continuing appropriate antibiotic therapy, steroids. A CAT scan with prone position could be performed to try to see if we are dealing with a fungal ball within the cavitary lesion. There is no hemoptysis at this point. We'll follow recent thoracocentesis culture and cytology. Whether to start antifungal treatment would be left to Dr. Ricci discretion. There is no surgical indication at this point for VATS and/or curative resection, however I'm not sure if this patient would tolerate a resection strategy should the need arises. Thank you for the procedure.. This is discussed with
[2016-10-12 17:35] LABS: Glucose,Whole Blood 141 mg/dL (75-99)
[2016-10-12] MEDS: LEVOFLOXACIN 750 MG TAB PO SCH (20:11)
[2016-10-12] MEDS: HYDROcodone/APAP 5-325MG 1 EACH TAB PO PRN (20:17)
[2016-10-12 21:05] LABS: Glucose,Whole Blood 167 mg/dL (75-99)
[2016-10-13 07:27] LABS: Glucose,Whole Blood 134 mg/dL (75-99)
[2016-10-13] MEDS: IPRATROPIUM-ALBUTEROL 3 ML NEB INHALATION SCH ×4 (09:00→20:20)
[2016-10-13] MEDS: BUDESONIDE 0.5 MG/2 ML NEBU INHALATION SCH ×2 (09:00→20:18)
[2016-10-13] MEDS: FORMOTEROL FUMARATE 20 MCG/2 ML NEBU INHALATION SCH ×2 (09:00→20:18)
--- NOTE | 2016-10-13 09:01 | PN ---
DATE OF SERVICE: 10/12/2016 This 65-year-old gentleman who was admitted with bilateral pneumonia, also had significant history of alcohol abuse also. The patient also had a cavitary lesion right upper lobe. CT scan was also noted. The patient also had thoracocentesis recently. The final reports are pending at this time. So far all the cultures are negative. The patient on IV empiric antibiotics. The patient evaluated by Dr. Ricci as well as Dr. Maher from pulmonary. Dr. Caldwell has seen the patient today for possible surgical evaluation. Recommend empiric antifungal treatment. Otherwise, await results of the current testing and there is no surgical indication at this point for VATS or curative resection. The patient being closely monitored. Past medical history reviewed. REVIEW OF SYSTEMS: CARDIOVASCULAR: No angina or palpitations. RESPIRATORY: As mentioned earlier. GI: As mentioned earlier. : No dysuria. Nervous system: No numbness or weakness. ABDOMEN: Soft. Current Medications are reviewed and include: 1. [place] 5 mg q.6 p.r.n. 2. DuoNeb q.i.d. and p.r.n. 3. Pulmicort 0.5 b.i.d. 4. Folic acid 1 mg p.o. daily. 5. Perforomist 20 b.i.d. 6. Heparin 5000 subcu b.i.d. 7. Humalog. 8. Levaquin 750 daily. 9. Ativan 1 mg q.8. 10. Solu-Medrol 60 IV b.i.d. 11. Multivitamins 1 p.o. daily. 12. Protonix 40 mg daily. 13. Zosyn 3.75 IV q.8. 14. Restoril 15 mg q.h.s. 15. Vitamin B 100 mg p.o. daily. PHYSICAL EXAMINATION: The patient is alert and oriented times three. Pulse is 104, blood pressure 111/63, respiratory rate 18, temperature 97.7, pulse ox 94% on 3 L. HEENT: Conjunctivae normal. NECK: No jugular venous distention. CARDIOVASCULAR: S1, S2 muffled. RESPIRATORY: Breath sounds diminished at the bases. Bilateral scattered rhonchi and crackles. Wheezing also present. ABDOMEN: Soft, obese, nontender. LEGS: No edema. No swelling. CENTRAL NERVOUS SYSTEM: Higher functions as mentioned earlier. Moves all four limbs. No focal deficits. LYMPHATICS: No lymph nodes palpable in the neck, axillae or groin. SKIN: No ulcer, rash or bleeding. LABS: WBC 6.8, sodium 134. Chest x-ray reviewed, significant bilateral lesions. ASSESSMENT: 1. Bilateral pneumonia with left base and right upper lung pneumonia with failure of outpatient treatment with possible sepsis, present on admission. 2. Chronic obstructive pulmonary disease, acute exacerbation. 3. Right pleural effusion, status post thoracocentesis 1.45 L. 4. Increased WBC. 5. Right upper lobe cavitary lesion possibly aspergillus versus anaerobic pneumonia. 6. History of ETOH. 7. History of nicotine dependence. 8. Hyponatremia. 9. Increased random blood sugar. 10. Increased bilirubin. 11. Increased serum alkaline phosphatase. 12. Mild to moderate protein calorie malnutrition with a body mass index of 19.6. 13. Chronic hypoxic respiratory failure, on home oxygen. 14. History of right pleural effusion with thoracocentesis previously. 15. FULL CODE. RECOMMENDATIONS AND DISCUSSION: In this 65 -year-old gentleman who presented with multiple complex medical issues, we will monitor the patient closely, continue current medications, continue symptomatic treatment. We will wait for results of the pleural fluid as well as cultures. Otherwise, currently continue to current medications, continue intensive bronchodilators treatment, empiric antibiotics. The patient is on IV Zosyn at this time. Otherwise, steroids has been also being tapered by Dr. Jimenez. Otherwise, closely follow with Infectious disease, Dr. Caldwell input appreciated. Possible antifungal treatment per ID. Guarded prognosis. Further recommendations to follow.
[2016-10-13 09:30] LABS: Basophils % (A) 0 %; CH 31.9; CHCM 33.1; Eosinophils % (A) 0 %; HCT 39.2 % (39.0-53.0); HDW 2.53; HGB 12.6 gm/dL (13.0-17.5); Luc # (Auto) 0.22; Luc % (Auto) 2; Lymphocytes # (A) 0.8 k/uL (1.0-4.8); Lymphocytes % (A) 8 %; MCH 31.1 pg (25.0-35.0); MCHC 32.1 g/dL (31.0-37.0); MCV 96.9 fL (80.0-100.0); Mean Platelet Volume 7.1; Monocytes # (A) 0.5 k/uL (0-1.0); Monocytes % (A) 5 %; Neutrophils # (A) 8.7 k/uL (1.3-7.7); Neutrophils % (A) 86 %; RBC 4.05 m/uL (4.30-5.90); RDW 13.9 % (11.5-15.5); WBC 10.2 k/uL (3.8-10.6); WBC (Perox) 10.66
[2016-10-13 09:34] LABS: Anion Gap 11 mmol/L; Blood Urea Nitrogen 10 mg/dL (9-20); Calcium 9.2 mg/dL (8.4-10.2); Carbon Dioxide 25 mmol/L (22-30); Chloride 101 mmol/L (98-107); Glucose 115 mg/dL (74-99); Non-African American GFR(MDRD) >60 (>60 ml/min/1.73 sqM); Potassium 4.3 mmol/L (3.5-5.1); Sodium 137 mmol/L (137-145)
[2016-10-13] MEDS: methylPREDNISolone SOD SUCCI 125 MG/2 ML VIAL IV SCH (10:55)
[2016-10-13] MEDS: INSULIN LISPRO (humaLOG) 300 UNIT/3 ML VIAL SQ SCH ×4 (10:55→22:00)
[2016-10-13] MEDS: PIPERACILLIN-TAZOBACTAM 3.375 GM in DEXTROSE/WATER 1 50ML.BAG IVPB SCH ×3 (10:55→23:02)
[2016-10-13] MEDS: PANTOPRAZOLE 40 MG TABLET PO SCH (10:56)
[2016-10-13] MEDS: HEPARIN SODIUM,PORCINE 5,000 UNIT/ML 1 ML VIAL SQ SCH ×2 (10:56→20:00)
[2016-10-13] MEDS: THIAMINE 100 MG TAB PO SCH (10:56)
[2016-10-13] MEDS: FOLIC ACID 1 MG TAB PO SCH (10:56)
[2016-10-13] MEDS: MULTIVITAMINS, THERA 1 EACH TAB PO SCH (10:56)
--- NOTE | 2016-10-13 11:18 | P.PN ---
Subjective Principal diagnosis: Right upper lobe cavitary lesion Pt currently sitting up in bed in no acute distress, very angry that he's not getting answers as to what the plan is to help him get better. Objective - Vital Signs Vital signs: Vital Signs Temp 96.2 F L 10/13/16 07:49 Pulse 105 H 10/13/16 09:24 Resp 19 10/13/16 07:49 BP 121/66 10/13/16 07:49 Pulse Ox 95 10/13/16 07:49 Intake & Output 10/12/16 10/13/16 10/13/16 18:59 06:59 18:59 Intake Total 150 1160 Output Total 300 1600 Balance -150 -440 Intake: Intake, IV Titration 150 Amount Piperacillin-Tazobactam 3 50 .375 gm In Dextrose/Water 1 50ml.bag @ 12.5 mls/hr IVPB Q8HR JANEY Rx#: [id number] Sodium Chloride 0.9% 1, 100 000 ml @ 100 mls/hr IV . Q10H JANEY Rx#:[id number] Oral 1160 Output: Urine 300 1600 Other: # Voids 1 # Bowel Movements 1 - Constitutional General appearance: Present: disheveled, no acute distress - Respiratory Details: Lung sounds diminished, R > L, exp wheezes present throughout. Resp even, non- labored. Currently on 3LPM NC. - Cardiovascular Details: S1/S2 present. Reg rate/rhythm, NSR on tele. No edema. - Gastrointestinal Gastrointestinal Comment(s): Abd soft/NT/ND. Active BS x 4 quad. Tolerating diet. - Genitourinary Genitourinary Comment(s): voiding clear/yellow urine - Musculoskeletal Musculoskeletal: Present: strength equal bilaterally - Psychiatric Psychiatric: Present: A&O x's 3 - Allied health notes Allied health notes reviewed: nursing - Labs CBC & Chem 7: 10/13/16 08:26 10/13/16 08:26 Labs: Abnormal Lab Results - Last 24 Hours (Table) 10/12/16 10/12/16 10/12/16 Range/Units 11:59 17:29 20:51 RBC (4.30-5.90) m/uL Hgb (13.0-17.5) gm/dL Neutrophils # (1.3-7.7) k/uL Lymphocytes # (1.0-4.8) k/uL Creatinine (0.66-1.25) mg/dL Glucose (74-99) mg/dL POC Glucose (mg/dL) 125 H 141 H 167 H (75-99) mg/dL 10/13/16 10/13/16 10/13/16 Range/Units 07:25 08:26 08:26 RBC 4.05 L (4.30-5.90) m/uL Hgb 12.6 L (13.0-17.5) gm/dL Neutrophils # 8.7 H (1.3-7.7) k/uL Lymphocytes # 0.8 L (1.0-4.8) k/uL Creatinine 0.49 L (0.66-1.25) mg/dL Glucose 115 H (74-99) mg/dL POC Glucose (mg/dL) 134 H (75-99) mg/dL Microbiology - Last 24 Hours (Table) 10/10/16 12:55 Anaerobic Culture - Preliminary Pleural Fluid 10/10/16 12:55 Gram Stain - Preliminary Pleural Fluid Body Fluid Culture - Preliminary - Imaging and Cardiology Chest x-ray: report reviewed, image reviewed Assessment and Plan (1) Bilateral pleural effusion Status: Acute (2) COPD (chronic obstructive pulmonary disease) Status: Acute (3) Cavitary pneumonia Status: Acute Plan: 1. Cont antibiotics per primary/infectious disease recommendation. 2. Cont updrafts/steroids per pulmonology 3. Will follow culture and cytology from recent thoracentesis. 4. No plan for surgical intervention at this time. 5. Will follow while remains hospitalized. Time with Patient: Greater than 30
[2016-10-13] MEDS: HYDROcodone/APAP 5-325MG 1 EACH TAB PO PRN ×2 (11:27→22:13)
[2016-10-13 11:42] LABS: Glucose,Whole Blood 129 mg/dL (75-99)
[2016-10-13] MEDS: SODIUM CHLORIDE 0.9% 1,000 ML IV SCH ×2 (12:20→19:52)
--- NOTE | 2016-10-13 12:31 | P.PN ---
Subjective Principal diagnosis: Right upper lobe cavitary pneumonia Patient seen and examined. Patient was evaluated by thoracic surgery and is a poor candidate for surgery. The patient states his cough is improving a little bit. He is still very short of breath. Objective - Vital Signs Vital signs: Vital Signs Temp 96.2 F L 10/13/16 07:49 Pulse 105 H 10/13/16 09:24 Resp 19 10/13/16 07:49 BP 121/66 10/13/16 07:49 Pulse Ox 95 10/13/16 07:49 Intake & Output 10/12/16 10/13/16 10/13/16 18:59 06:59 18:59 Intake Total 150 1160 Output Total 300 1600 Balance -150 -440 Intake: Intake, IV Titration 150 Amount Piperacillin-Tazobactam 3 50 .375 gm In Dextrose/Water 1 50ml.bag @ 12.5 mls/hr IVPB Q8HR JANEY Rx#: [id number] Sodium Chloride 0.9% 1, 100 000 ml @ 100 mls/hr IV . Q10H JANEY Rx#:[id number] Oral 1160 Output: Urine 300 1600 Other: Voiding Method Toilet Urinal # Voids 1 # Bowel Movements 1 - Exam Gen: A+OX3, NAD CV: RRR, s1/s2 Lungs: coarse breath sounds bilaterally Abd: soft, NT/ND, +BS Ext. no edema - Labs CBC & Chem 7: 10/13/16 08:26 10/13/16 08:26 Labs: Abnormal Lab Results - Last 24 Hours (Table) 10/12/16 10/12/16 10/13/16 Range/Units 17:29 20:51 07:25 RBC (4.30-5.90) m/uL Hgb (13.0-17.5) gm/dL Neutrophils # (1.3-7.7) k/uL Lymphocytes # (1.0-4.8) k/uL Creatinine (0.66-1.25) mg/dL Glucose (74-99) mg/dL POC Glucose (mg/dL) 141 H 167 H 134 H (75-99) mg/dL 10/13/16 10/13/16 10/13/16 Range/Units 08:26 08:26 11:40 RBC 4.05 L (4.30-5.90) m/uL Hgb 12.6 L (13.0-17.5) gm/dL Neutrophils # 8.7 H (1.3-7.7) k/uL Lymphocytes # 0.8 L (1.0-4.8) k/uL Creatinine 0.49 L (0.66-1.25) mg/dL Glucose 115 H (74-99) mg/dL POC Glucose (mg/dL) 129 H (75-99) mg/dL Microbiology - Last 24 Hours (Table) 10/10/16 12:55 Anaerobic Culture - Preliminary Pleural Fluid 10/10/16 12:55 Gram Stain - Preliminary Pleural Fluid Body Fluid Culture - Preliminary Assessment and Plan Plan: Acute on chronic hypoxic respiratory failure AECOPD Aspiration pneumonia RUL cavitary lung lesion Right pleural effusion, s/p thoracentesis Alcohol abuse O2 to maintain sat > or = 88% Fluid for cytology, cultures ABX per ID - Levaquin and Zosyn. Patient may benefit from long-term ABX as outpatient, will discuss with ID Thoracentesis fluid apparently was not sent for LDH and total protein Awaiting cultures and cytology Bronchodilators and Pulmicort Continue Perforomist Flutter therapy IV Solumedrol taper Sputum culture GI and DVT prophylaxis
--- NOTE | 2016-10-13 16:57 | P.PN ---
Subjective Principal diagnosis: shortness of breath 65-year-old male who presents to hospital with increasing shortness of breath. He was recently hospitalized at this facility where he was on evidence of an exacerbation of his COPD with pneumonia. If progressive weight loss. Decreased appetite. Increasing weakness. He was evaluated that time and computed tomography scan showed evidence of significant effusions especially to the right side. As well as significant pneumonia with a cavitary lesion in the right upper lobe. During his stay he underwent bronchoscopy and to date samples are negative for fungus and pathology was negative for any malignancy. Was discharged home on antibiotic therapy but he failed rapidly in the outpatient setting. He became concerned and more short of breath. When she was crawling around at home because he was so short of breath. Because he presented back to the emergency center. If the admission he has evidence of extensive shortness of breath. He has hypoxia. It is evidence of marked worsening of his effusion to the right chest. Repeated thoracentesis allowed some improvement to his shortness of breath. He has steadily improved from admission. He however is very concerned about worsening of his status again. He relates it is not having high-grade fevers chills or rigors or sweats. Certainly feels very poorly. Exam at this time shows a patient to be status post a thoracentesis. There is still markedly diminished breath sounds at the right base. He appears to be acutely all. But his appetite improved. He is trying to eat his lunch. No other acute changes are noted at the moment. Data review from the last day shows evidence of no pathogens, no evidence of any fungal pathogens. AFB was negative also. Cytology was negative from both a bronchoscopy as well as the thoracentesis. The patient has advanced COPD and is having exacerbation of this as well as worsening effusion. Patient seen by pulmonary critical care and their plans are in process. For antimicrobial therapy. He is a piperacillin tazobactam as well as Levaquin until we have further data. Receiving steroid therapy also. Nutritional supplementation is an important part of his recovery and is being continued. Is feeling only slightly better. Objective - Vital Signs Vital signs: Vital Signs Temp 98.4 F 10/13/16 15:37 Pulse 60 10/13/16 16:19 Resp 20 10/13/16 15:37 BP 110/50 10/13/16 15:37 Pulse Ox 93 L 10/13/16 15:37 Intake & Output 10/12/16 10/13/16 10/13/16 18:59 06:59 18:59 Intake Total 150 1160 Output Total 300 1600 Balance -150 -440 Intake: Intake, IV Titration 150 Amount Piperacillin-Tazobactam 3 50 .375 gm In Dextrose/Water 1 50ml.bag @ 12.5 mls/hr IVPB Q8HR JANEY Rx#: [id number] Sodium Chloride 0.9% 1, 100 000 ml @ 100 mls/hr IV . Q10H JANEY Rx#:[id number] Oral 1160 Output: Urine 300 1600 Other: Voiding Method Toilet Urinal # Voids 1 3 # Bowel Movements 1 - Exam Gen: This is a 65-year-old male who looks much older than stated age. He is dyspneic with minimal movement in bed. HEENT: Head is atraumatic, normocephalic. Pupils equal, round. Sclerae is anicteric. Conjunctiva slightly pale. Mucous members of the mouth are dry. Dentition is in poor order and patient has only a few teeth left. No thrush noted. NECK: Supple. No JVD. No lymphadenopathy. No thyromegaly. LUNGS: Coarse crackles throughout with occasional scattered expiratory wheeze. diminished breath sounds to the right base HEART: Regular rate and rhythm. No murmur. ABDOMEN: Soft. Bowel sounds are present. No masses. No tenderness. EXTREMITIES: No pedal edema. No calf tenderness. Dorsalis pedis +2 bilaterally. NEUROLOGICAL: Patient is awake, alert and oriented x3. - Labs CBC & Chem 7: 10/13/16 08:26 10/13/16 08:26 Labs: Abnormal Lab Results - Last 24 Hours (Table) 10/12/16 10/12/16 10/13/16 Range/Units 17:29 20:51 07:25 RBC (4.30-5.90) m/uL Hgb (13.0-17.5) gm/dL Neutrophils # (1.3-7.7) k/uL Lymphocytes # (1.0-4.8) k/uL Creatinine (0.66-1.25) mg/dL Glucose (74-99) mg/dL POC Glucose (mg/dL) 141 H 167 H 134 H (75-99) mg/dL 10/13/16 10/13/1610/13/17 Range/Units 08:26 08:26 11:40 RBC 4.05 L (4.30-5.90) m/uL Hgb 12.6 L (13.0-17.5) gm/dL Neutrophils # 8.7 H (1.3-7.7) k/uL Lymphocytes # 0.8 L (1.0-4.8) k/uL Creatinine 0.49 L (0.66-1.25) mg/dL Glucose 115 H (74-99) mg/dL POC Glucose (mg/dL) 129 H (75-99) mg/dL Microbiology - Last 24 Hours (Table) 10/10/16 12:55 Anaerobic Culture - Preliminary Pleural Fluid 10/10/16 12:55 Gram Stain - Preliminary Pleural Fluid Body Fluid Culture - Preliminary Laboratory Results WBC 10.2 k/uL (3.8-10.6) 10/13/16 08:26 RBC 4.05 m/uL (4.30-5.90) L 10/13/16 08:26 Hgb 12.6 gm/dL (13.0-17.5) L 10/13/16 08:26 Hct 39.2 % (39.0-53.0) 10/13/16 08:26 MCV 96.9 fL (80.0-100.0) 10/13/16 08:26 MCH 31.1 pg (25.0-35.0) 10/13/16 08:26 MCHC 32.1 g/dL (31.0-37.0) 10/13/16 08:26 RDW 13.9 % (11.5-15.5) 10/13/16 08:26 Plt Count 165 k/uL (150-450) 10/13/16 08:26 Neutrophils % 86 % 10/13/16 08:26 Lymphocytes % 8 % 10/13/16 08:26 Monocytes % 5 % 10/13/16 08:26 Eosinophils % 0 % 10/13/16 08:26 Basophils % 0 % 10/13/16 08:26 Neutrophils # 8.7 k/uL (1.3-7.7) H 10/13/16 08:26 Lymphocytes # 0.8 k/uL (1.0-4.8) L 10/13/16 08:26 Monocytes # 0.5 k/uL (0-1.0) 10/13/16 08:26 Eosinophils # 0.0 k/uL (0-0.7) 10/13/16 08:26 Basophils # 0.0 k/uL (0-0.2) 10/13/16 08:26 PT 11.1 sec (9.0-12.0) 10/08/16 16:00 INR 1.1 (<1.1) 10/08/16 16:00 APTT 26.2 sec (22.0-30.0) 10/08/16 16:00 Sodium 137 mmol/L (137-145) 10/13/16 08:26 Potassium 4.3 mmol/L (3.5-5.1) 10/13/16 08:26 Chloride 101 mmol/L (98-107) 10/13/16 08:26 Carbon Dioxide 25 mmol/L (22-30) 10/13/16 08:26 Anion Gap 11 mmol/L 10/13/16 08:26 BUN 10 mg/dL (9-20) 10/13/16 08:26 Creatinine 0.49 mg/dL (0.66-1.25) L 10/13/16 08:26 Est GFR (MDRD) Af Amer >60 (>60 ml/min/1.73 sqM) 10/13/16 08:26 Est GFR (MDRD) Non-Af >60 (>60 ml/min/1.73 sqM) 10/13/16 08:26 Glucose 115 mg/dL (74-99) H 10/13/16 08:26 POC Glucose (mg/dL) 129 mg/dL (75-99) H 10/13/16 11:40 POC Glu Corporate Technical Recruiter ID Ashlie Mojica 10/13/16 11:40 Calcium 9.2 mg/dL (8.4-10.2) 10/13/16 08:26 Magnesium 1.9 mg/dL (1.6-2.3) 10/08/16 16:00 Total Bilirubin 1.6 mg/dL (0.2-1.3) H 10/08/16 16:00 AST 23 U/L (17-59) 10/08/16 16:00 ALT 36 U/L (21-72) 10/08/16 16:00 Alkaline Phosphatase 177 U/L (38-126) H 10/08/16 16:00 Total Creatine Kinase 22 U/L (55-170) L 10/08/16 16:00 CK-MB (CK-2) 1.9 ng/mL (0.0-2.4) 10/08/16 16:00 CK-MB (CK-2) Rel Index 8.6 10/08/16 16:00 Troponin I <0.012 ng/mL (0.000-0.034) 10/08/16 16:00 NT-Pro-B Natriuret Pep 608 pg/mL 10/08/16 16:00 Total Protein 7.3 g/dL (6.3-8.2) 10/08/16 16:00 Albumin 3.6 g/dL (3.5-5.0) 10/08/16 16:00 Urine Color Yellow 10/09/16 23:45 Urine Appearance Clear (Clear) 10/09/16 23:45 Urine pH 6.0 (5.0-8.0) 10/09/16 23:45 Ur Specific Cres[place] 1.030 (1.001-1.035) 10/09/16 23:45 Urine Protein Trace (Negative) H 10/09/16 23:45 Urine Glucose (UA) Negative (Negative) 10/09/16 23:45 Urine Ketones Trace (Negative) H 10/09/16 23:45 Urine Blood Negative (Negative) 10/09/16 23:45 Urine Nitrate Negative (Negative) 10/09/16 23:45 Urine Bilirubin Negative (Negative) 10/09/16 23:45 Urine Urobilinogen <2.0 mg/dL (<2.0) 10/09/16 23:45 Ur Leukocyte Esterase Negative (Negative) 10/09/16 23:45 Fluid Source Pleural 10/10/16 12:55 Fluid Color Yellow 10/10/16 12:55 Fluid Appearance Cloudy 10/10/16 12:55 Fluid RBC 1520 /uL 10/10/16 12:55 Fluid Nucleated Cells 460 /uL 10/10/16 12:55 Fluid Polynuclear WBCs 69 % 10/10/16 12:55 Fluid Mononuclear WBCs 31 % 10/10/16 12:55 Urine Opiates Screen Detected (NotDetected) H 10/09/16 23:45 Ur Oxycodone Screen Not Detected (NotDetected) 10/09/16 23:45 Urine Methadone Screen Not Detected (NotDetected) 10/09/16 23:45 Ur Propoxyphene Screen Not Detected (NotDetected) 10/09/16 23:45 Ur Barbiturates Screen Not Detected (NotDetected) 10/09/16 23:45 U Tricyclic Antidepress Not Detected (NotDetected) 10/09/16 23:45 Ur Phencyclidine Scrn Not Detected (NotDetected) 10/09/16 23:45 Ur Amphetamines Screen Not Detected (NotDetected) 10/09/16 23:45 U Methamphetamines Scrn Not Detected (NotDetected) 10/09/16 23:45 U Benzodiazepines Scrn Not Detected (NotDetected) 10/09/16 23:45 Urine Cocaine Screen Not Detected (NotDetected) 10/09/16 23:45 U Marijuana (THC) Screen Not Detected (NotDetected) 10/09/16 23:45 Influenza Type A RNA Not Detected (Not Detectd) 10/09/16 11:30 Influenza Type B (PCR) Not Detected (Not Detectd) 10/09/16 11:30 Microbiology 10/10/16 12:55 Pleural Fluid Anaerobic Culture - Preliminary 10/10/16 12:55 Pleural Fluid Gram Stain - Preliminary 10/10/16 12:55 Pleural Fluid Body Fluid Culture - Preliminary 10/08/16 16:00 Blood Blood Culture - Preliminary No Growth after 96 hours 10/08/16 17:42 Sputum Gram Stain - Final 10/08/16 17:42 Sputum Sputum Culture - Final Assessment and Plan (1) Acute exacerbation of chronic obstructive airways disease Narrative/Plan: 65-year-old male presents to hospital with recurrence of his significant shortness of breath. He became so weak he was crawling on the floor to call EMS to come and get him. A admission he has evidence of a large effusion to the right. He is undergone thoracentesis and feels just slightly better. Still feels quite weak. Does have a bit of sensitivity humor today, but is very worried about his overall status. The case is discussed with the hospitalist. Given his ongoing significant debility, the extensive effusion, and the lack of prior studies with definitive diagnosis. The patient has been seen by cardiothoracic surgery. Do not believe he would benefit from any type of intervention into his right chest. This is of concern given his significant weight loss over the last several months and is progressive and extensive debility. Patient is improving with a thoracentesis, antibiotic therapy, steroids, and respiratory treatments. The patient likely will go to rehab to complete his course of antibiotic therapy of Zosyn. With his complex pulmonary issues another 10 days would be reasonable. A computed tomography scan in the prone position has been requested to further delineate if the abnormality in the right chest is a fungus ball. Status: Acute (2) Bilateral pleural effusion Status: Acute (3) Cavitary pneumonia Status: Acute
[2016-10-13 17:13] LABS: Glucose,Whole Blood 172 mg/dL (75-99)
--- NOTE | 2016-10-13 18:19 | CT ---
EXAMINATION TYPE: CT chest wo con DATE OF EXAM: 10/13/2016 6:05 PM COMPARISON: 09/18/2016 HISTORY: Aspergilloma. CT DLP: 722.00 mGycm Automated exposure control for dose reduction was used. FINDINGS: Multiple axial sections were obtained in the prone position from the thoracic inlet to the diaphragm. There are bilateral loculated pleural effusions much larger on the right side. There are multiple are as of consolidation in the periphery of both lungs. There is atelectasis at the right lung base. Ther e is dense consolidation in the left lower lobe. There is consolidation in the anterior aspect of the left upper lobe. There is some pleural consolidation in the lateral right upper lobe. I see no media stinal adenopathy. There are no definite hilar masses. There is no pericardial effusion. There is bul lous emphysema in both mid and upper lung coombs. The bony thorax appears intact. IMPRESSION: EXTENSIVE BILATERAL PNEUMONIC CONSOLIDATION. LARGE BILATERAL LOCULATED PLEURAL EFFUSIONS AND MORE ON THE RIGHT SIDE. THE OLD CT SCAN OF 09/18/2016 SHOWS A 5 CM CAVITY IN THE POSTERIOR RIGHT UPPER LUNG FIELD THAT COULD B E IN THE SUPERIOR SEGMENT OF THE RIGHT LOWER LOBE. THERE IS A 2 CM MASS WITHIN THE CAVITY THAT COULD BE A FUNGUS BALL ON THE OLD CT SCAN. THIS AREA ON TODAY'S CT SCAN IS AN AREA OF DENSE PNEUMONIC CONSO LIDATION. THERE IS A FLUID LEVEL AND I THINK THAT THE CAVITY IS FILLED WITH FLUID THAT IS NEW COMPARE D TO THE LAST EXAM. THE MASS WITHIN THE CAVITY APPEARS TO BE OBSCURED BY THE FLUID. ALLOWING FOR DIFF ERENT POSITION OF THE PATIENT IN THE PRONE POSITION I DO NOT SEE A DEFINITE CHANGE OTHERWISE IN THE A PPEARANCE OF THE CHEST.
[2016-10-13] MEDS: LEVOFLOXACIN 750 MG TAB PO SCH (19:52)
[2016-10-13 21:15] LABS: Glucose,Whole Blood 157 mg/dL (75-99)
[2016-10-13] MEDS: methylPREDNISolone SOD SUCCI 40 MG/ML 1 ML VIAL IV SCH (22:00)
[2016-10-14] MEDS: SODIUM CHLORIDE 0.9% 1,000 ML IV SCH ×3 (05:58→23:29)
[2016-10-14] MEDS: INSULIN LISPRO (humaLOG) 300 UNIT/3 ML VIAL SQ SCH ×4 (08:05→21:17)
[2016-10-14] MEDS: PANTOPRAZOLE 40 MG TABLET PO SCH (08:06)
[2016-10-14] MEDS: HEPARIN SODIUM,PORCINE 5,000 UNIT/ML 1 ML VIAL SQ SCH ×2 (08:06→21:16)
[2016-10-14] MEDS: methylPREDNISolone SOD SUCCI 40 MG/ML 1 ML VIAL IV SCH ×2 (08:06→21:16)
[2016-10-14] MEDS: PIPERACILLIN-TAZOBACTAM 3.375 GM in DEXTROSE/WATER 1 50ML.BAG IVPB SCH ×3 (08:06→23:27)
[2016-10-14 08:26] LABS: Glucose,Whole Blood 112 mg/dL (75-99)
[2016-10-14] MEDS: IPRATROPIUM-ALBUTEROL 3 ML NEB INHALATION SCH ×4 (08:57→20:14)
[2016-10-14] MEDS: FORMOTEROL FUMARATE 20 MCG/2 ML NEBU INHALATION SCH ×2 (08:57→20:14)
[2016-10-14] MEDS: BUDESONIDE 0.5 MG/2 ML NEBU INHALATION SCH ×2 (08:57→20:14)
[2016-10-14 08:59] LABS: Basophils % (A) 0 %; CHCM 33.4; Eosinophils % (A) 0 %; HDW 2.52; HGB 12.8 gm/dL (13.0-17.5); Luc # (Auto) 0.19; Luc % (Auto) 2; Lymphocytes # (A) 0.8 k/uL (1.0-4.8); Lymphocytes % (A) 9 %; MCH 31.6 pg (25.0-35.0); MCHC 32.9 g/dL (31.0-37.0); MCV 96.2 fL (80.0-100.0); Monocytes # (A) 0.6 k/uL (0-1.0); Monocytes % (A) 6 %; Neutrophils # (A) 7.4 k/uL (1.3-7.7); Neutrophils % (A) 82 %; RBC 4.06 m/uL (4.30-5.90); RDW 13.7 % (11.5-15.5); WBC (Perox) 9.55
--- NOTE | 2016-10-14 09:06 | PN ---
DATE OF SERVICE: 10/13/2016 This 65-year-old gentleman who was admitted with bilateral pneumonia and pleural effusion, is being closely monitored at this time. The patient was seen by cardiology. Fluid for cytology is pending at this time. The patient also had a right upper lobe cavitary lesion. Cardiothoracic surgery is recommending continuing with current treatment. Pulmonary and infectious disease, Dr. Ricci, is following the patient closely. Chest CT was requested, which showed bilateral pneumonia consolidation and loculated pleural effusion. A 2 cm mass within the cavity was noted, possibly cavity filled with fluid on the new CT scan. The patient is being closely monitored. No chest pain or palpitations. No fever. On exam, alert, oriented x3. Pulse 95, blood pressure 120/50, respiration 20, temperature 98.4, pulse ox 93% on 3 liters. HEENT: Conjunctivae normal. NECK: No JVD. CARDIOVASCULAR: S1 and S2 present. RESPIRATORY: Breath sounds diminished at the bases. Bilateral scattered and crackles. ABDOMEN: Soft, nontender. EXTREMITIES: No edema. 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 LABS: WBC 10.3, hemoglobin 12.6, glucose 129. ASSESSMENT: 1. Bilateral pneumonia with failure of outpatient treatment with possible sepsis, present on admission, possibly gram-negative and aerobic. 2. Right upper lobe cavitary lesion, possibly anaerobic, filled with fluid. 3. Chronic obstructive pulmonary disease, acute exacerbation, percent on admission. 4. Right pleural effusion, status post thoracentesis of 1.45 liters. 5. Increased WBC. 6. History of EtOH. 7. History of nicotine dependence. 8. Hyponatremia. 9. Increased random blood sugar. 10. Increased bilirubin. 11. Increased serum alkaline phosphatase, mild to moderate protein calorie malnutrition with body mass index of 98.6. 12. Chronic hypoxic respiratory failure on home O2. 13. History of right pleural effusion with thoracentesis previously. 14. FULL CODE. RECOMMENDATIONS: Recommend to continue current medications and symptomatic treatment. Continue antibiotics. Await cultures. Multiple sap basis consultant notes appreciated. Guarded prognosis because of multiple complex medical issues. Further recommendations to follow.
[2016-10-14 09:33] LABS: Anion Gap 10 mmol/L; Blood Urea Nitrogen 11 mg/dL (9-20); Calcium 9.2 mg/dL (8.4-10.2); Carbon Dioxide 24 mmol/L (22-30); Chloride 102 mmol/L (98-107); Glucose 107 mg/dL (74-99); Non-African American GFR(MDRD) >60 (>60 ml/min/1.73 sqM); Potassium 4.5 mmol/L (3.5-5.1); Sodium 136 mmol/L (137-145)
[2016-10-14 12:38] LABS: Glucose,Whole Blood 113 mg/dL (75-99)
[2016-10-14] MEDS: THIAMINE 100 MG TAB PO SCH (12:38)
[2016-10-14] MEDS: MULTIVITAMINS, THERA 1 EACH TAB PO SCH (12:38)
[2016-10-14] MEDS: FOLIC ACID 1 MG TAB PO SCH (12:38)
[2016-10-14] MEDS ORDERED: LIDOCAINE 2% INJ 20 MG/ML SQ ONE (15:04)
[2016-10-14] MEDS: HYDROcodone/APAP 5-325MG 1 EACH TAB PO PRN ×2 (15:59→21:16)
--- NOTE | 2016-10-14 16:12 | IR ---
EXAMINATION TYPE: IR cvc insert >=5 years DATE OF EXAM: 10/14/2016 3:30 PM COMPARISON: NONE CLINICAL HISTORY: Pneumonia Needs long-term intravenous access for antibiotics. PROCEDURE: After informed consent, the skin overlying the left brachial vein was localized with ultrasound and n oted to be compressible and patent. An ultrasound image was obtained and submitted on the patient's chart. The overlying skin was prepped and draped and Lidocaine was used for local anesthesia. A ski n lester was made with a scalpel. Access was gained to the vein under ultrasound guidance with a 21 ga uge needle and a 0.018 inch wire was advanced. Access site was dilated with Peel-Away sheath and cat heter tailored to the appropriate length and advanced such that the distal tip is at the cavoatrial j unction. Spot image was obtained verifying placement. Catheter was fixed to the skin with suture an d a sterile dressing was placed following hemostasis. Catheter was aspirated and flushed with saline . Patient was discharged in stable condition without complication.Maximal barrier technique is utili zed. Ultrasound image is documented on the chart. Ultrasound used with sterile technique. Fluoro time and fluoroscopic images submitted to document procedure: 117 images, 0.8 minutes fluorosc opy time IMPRESSION: STATUS POST ULTRASOUND AND FLUOROSCOPIC GUIDED PICC LINE PLACEMENT, READY FOR USE. THIS PROCEDURE WAS PERFORMED BY THE UNDERSIGNED.
[2016-10-14 16:39] LABS: Glucose,Whole Blood 118 mg/dL (75-99)
--- NOTE | 2016-10-14 16:54 | P.PN ---
Subjective Principal diagnosis: AECOPD Patient seen and examined. Patient states he is still coughing up a lot of yellow green phlegm. He has intermittent streaks of blood. The patient states he is still very short of breath. He is frustrated because he doesn't feel like he is getting any better. Objective - Vital Signs Vital signs: Vital Signs Temp 98.3 F 10/14/16 15:00 Pulse 80 10/14/16 16:47 Resp 18 10/14/16 16:44 BP 133/76 10/14/16 15:00 Pulse Ox 93 L 10/14/16 15:00 Intake & Output 10/13/16 10/14/16 10/14/16 18:59 06:59 18:59 Intake Total 900 1250 Output Total 300 750 Balance -300 900 500 Intake: Intake, IV Titration 850 Amount Piperacillin-Tazobactam 3 50 .375 gm In Dextrose/Water 1 50ml.bag @ 12.5 mls/hr IVPB Q8HR JANEY Rx#: [id number] Sodium Chloride 0.9% 1, 800 000 ml @ 100 mls/hr IV . Q10H JANEY Rx#:[id number] Oral 900 400 Output: Urine 300 750 Other: Voiding Method Toilet Urinal Urinal # Voids 3 1 - Exam Gen: A+OX3, NAD CV: RRR, s1/s2 Lungs: coarse breath sounds bilaterally Abd: soft, NT/ND, +BS Ext. no edema - Labs CBC & Chem 7: 10/14/16 08:07 10/14/16 08:07 Labs: Abnormal Lab Results - Last 24 Hours (Table) 10/13/16 10/13/16 10/14/16 Range/Units 17:09 21:12 08:04 RBC (4.30-5.90) m/uL Hgb (13.0-17.5) gm/dL Lymphocytes # (1.0-4.8) k/uL Sodium (137-145) mmol/L Creatinine (0.66-1.25) mg/dL Glucose (74-99) mg/dL POC Glucose (mg/dL) 172 H 157 H 112 H (75-99) mg/dL 10/14/16 10/14/16 10/14/16 Range/Units 08:07 08:07 12:37 RBC 4.06 L (4.30-5.90) m/uL Hgb 12.8 L (13.0-17.5) gm/dL Lymphocytes # 0.8 L (1.0-4.8) k/uL Sodium 136 L (137-145) mmol/L Creatinine 0.48 L (0.66-1.25) mg/dL Glucose 107 H (74-99) mg/dL POC Glucose (mg/dL) 113 H (75-99) mg/dL 10/14/16 Range/Units 16:38 RBC (4.30-5.90) m/uL Hgb (13.0-17.5) gm/dL Lymphocytes # (1.0-4.8) k/uL Sodium (137-145) mmol/L Creatinine (0.66-1.25) mg/dL Glucose (74-99) mg/dL POC Glucose (mg/dL) 118 H (75-99) mg/dL Microbiology - Last 24 Hours (Table) 10/10/16 12:55 Gram Stain - Final Pleural Fluid Body Fluid Culture - Final Assessment and Plan Plan: Acute on chronic hypoxic respiratory failure AECOPD Aspiration pneumonia RUL cavitary lung lesion Right pleural effusion, s/p thoracentesis Alcohol abuse O2 to maintain sat > or = 88% Fluid for cytology, cultures ABX per ID - Levaquin and Zosyn. Patient may benefit from long-term ABX as outpatient - plan for 10 days of Zosyn Thoracentesis fluid apparently was not sent for LDH and total protein Awaiting cultures and cytology Bronchodilators and Pulmicort Continue Perforomist Flutter therapy IV Solumedrol taper Sputum culture GI and DVT prophylaxis
--- NOTE | 2016-10-14 18:28 | PN ---
DATE OF SERVICE: 10/14/2016 This 65-year-old gentleman who was admitted with bilateral pneumonia, and as well as cavitary lesion and right upper lobe is being closely monitored. Patient is on IV antibiotics. Infectious Disease is planning a PICC line and outpatient antibiotics. No chest pain, no palpitations. No fever. On exam, alert and oriented x3. Pulse is 77, blood pressure 125/70, respirations 16, temperature 96.9, pulse ox 96% on 3-L. HEENT: Conjunctivae normal. NECK: No jugular venous distention. CARDIOVASCULAR: S1 and S2, muffled. RESPIRATORY: Breath sounds diminished at the bases. Bilateral scattered rhonchi and crackles. ABDOMEN: Soft, nontender. LEGS: No edema, no swelling. NERVOUS SYSTEM: No focal deficits. LABS: WBC 9, hemoglobin 12.8, sodium 136. ASSESSMENT: 1. Bilateral pneumonia with failure of outpatient treatment with possible sepsis, present on admission, possibly gram-negative and aerobic. 2. Right upper lobe cavitary lesion possibly anaerobic filled with fluid. 3. Chronic obstructive pulmonary disease acute exacerbation, present on admission. 4. Right pleural effusion, status post thoracocentesis 1.45 liters. 5. Increased WBC. 6. History of EtOH. 7. History nicotine dependence. 8. Hyponatremia. 9. Increased random blood sugar. 10. History of increased bilirubin. 11. Increased serum alkaline phosphatase. 12. Mild to moderate protein calorie malnutrition, body mass index of 19.8. 13. Chronic hypoxic respiratory failure, on home oxygen. 14. History of right pleural effusion with thoracocentesis previously. 15. FULL CODE. 16. Gait dysfunction RECOMMENDATIONS AND DISCUSSION: In this 65-year-old gentleman who presented with multiple complex medical issues, we will monitor the patient closely. Continue the current medications, symptomatic treatment, otherwise I recommend to continue with bronchodilators, continue with PICC line, broad-spectrum IV antibiotics. PT, OT evaluation. Possible ECF rehab. Guarded prognosis. Further recommendations to follow.
--- NOTE | 2016-10-14 20:22 | P.PN ---
Subjective Principal diagnosis: shortness of breath 65-year-old male who presents to hospital with increasing shortness of breath. He was recently hospitalized at this facility where he was on evidence of an exacerbation of his COPD with pneumonia. If progressive weight loss. Decreased appetite. Increasing weakness. He was evaluated that time and computed tomography scan showed evidence of significant effusions especially to the right side. As well as significant pneumonia with a cavitary lesion in the right upper lobe. During his stay he underwent bronchoscopy and to date samples are negative for fungus and pathology was negative for any malignancy. Was discharged home on antibiotic therapy but he failed rapidly in the outpatient setting. He became concerned and more short of breath. When she was crawling around at home because he was so short of breath. Because he presented back to the emergency center. If the admission he has evidence of extensive shortness of breath. He has hypoxia. It is evidence of marked worsening of his effusion to the right chest. Repeated thoracentesis allowed some improvement to his shortness of breath. He has steadily improved from admission. He however is very concerned about worsening of his status again. He relates it is not having high-grade fevers chills or rigors or sweats. Certainly feels very poorly. Exam at this time shows a patient to be status post a thoracentesis. There is still markedly diminished breath sounds at the right base. He appears to be acutely all. But his appetite improved. He is trying to eat his lunch. No other acute changes are noted at the moment. Data review from the last day shows evidence of no pathogens, no evidence of any fungal pathogens. AFB was negative also. Cytology was negative from both a bronchoscopy as well as the thoracentesis. The patient has advanced COPD and is having exacerbation of this as well as worsening effusion. Patient seen by pulmonary critical care and their plans are in process. For antimicrobial therapy. He is a piperacillin tazobactam as well as Levaquin until we have further data. Receiving steroid therapy also. Nutritional supplementation is an important part of his recovery and is being continued. Is feeling only slightly better. Objective - Vital Signs Vital signs: Vital Signs Temp 98.3 F 10/14/16 15:00 Pulse 80 10/14/16 16:59 Resp 18 10/14/16 16:44 BP 133/76 10/14/16 15:00 Pulse Ox 93 L 10/14/16 15:00 Intake & Output 10/14/16 10/14/16 10/15/16 06:59 18:59 06:59 Intake Total 900 1250 Output Total 750 Balance 900 500 Intake: Intake, IV Titration 850 Amount Piperacillin-Tazobactam 3 50 .375 gm In Dextrose/Water 1 50ml.bag @ 12.5 mls/hr IVPB Q8HR JANEY Rx#: [id number] Sodium Chloride 0.9% 1, 800 000 ml @ 100 mls/hr IV . Q10H JANEY Rx#:[id number] Oral 900 400 Output: Urine 750 Other: Voiding Method Urinal # Voids 1 - Exam Gen: This is a 65-year-old male who looks much older than stated age. He is dyspneic with minimal movement in bed. HEENT: Head is atraumatic, normocephalic. Pupils equal, round. Sclerae is anicteric. Conjunctiva slightly pale. Mucous members of the mouth are dry. Dentition is in poor order and patient has only a few teeth left. No thrush noted. NECK: Supple. No JVD. No lymphadenopathy. No thyromegaly. LUNGS: Coarse crackles throughout with occasional scattered expiratory wheeze. diminished breath sounds to the right base increased crackles anterior aspect of chest HEART: Regular rate and rhythm. No murmur. ABDOMEN: Soft. Bowel sounds are present. No masses. No tenderness. EXTREMITIES: No pedal edema. No calf tenderness. Dorsalis pedis +2 bilaterally. NEUROLOGICAL: Patient is awake, alert and oriented x3. - Labs CBC & Chem 7: 10/14/16 08:07 10/14/16 08:07 Labs: Abnormal Lab Results - Last 24 Hours (Table) 10/13/16 10/14/16 10/14/16 Range/Units 21:12 08:04 08:07 RBC 4.06 L (4.30-5.90) m/uL Hgb 12.8 L (13.0-17.5) gm/dL Lymphocytes # 0.8 L (1.0-4.8) k/uL Sodium (137-145) mmol/L Creatinine (0.66-1.25) mg/dL Glucose (74-99) mg/dL POC Glucose (mg/dL) 157 H 112 H (75-99) mg/dL 10/14/16 10/14/1610/14/17 Range/Units 08:07 12:37 16:38 RBC (4.30-5.90) m/uL Hgb (13.0-17.5) gm/dL Lymphocytes # (1.0-4.8) k/uL Sodium 136 L (137-145) mmol/L Creatinine 0.48 L (0.66-1.25) mg/dL Glucose 107 H (74-99) mg/dL POC Glucose (mg/dL) 113 H 118 H (75-99) mg/dL Microbiology - Last 24 Hours (Table) 10/10/16 12:55 Gram Stain - Final Pleural Fluid Body Fluid Culture - Final Laboratory Results WBC 9.0 k/uL (3.8-10.6) 10/14/16 08:07 RBC 4.06 m/uL (4.30-5.90) L 10/14/16 08:07 Hgb 12.8 gm/dL (13.0-17.5) L 10/14/16 08:07 Hct 39.0 % (39.0-53.0) 10/14/16 08:07 MCV 96.2 fL (80.0-100.0) 10/14/16 08:07 MCH 31.6 pg (25.0-35.0) 10/14/16 08:07 MCHC 32.9 g/dL (31.0-37.0) 10/14/16 08:07 RDW 13.7 % (11.5-15.5) 10/14/16 08:07 Plt Count 180 k/uL (150-450) 10/14/16 08:07 Neutrophils % 82 % 10/14/16 08:07 Lymphocytes % 9 % 10/14/16 08:07 Monocytes % 6 % 10/14/16 08:07 Eosinophils % 0 % 10/14/16 08:07 Basophils % 0 % 10/14/16 08:07 Neutrophils # 7.4 k/uL (1.3-7.7) 10/14/16 08:07 Lymphocytes # 0.8 k/uL (1.0-4.8) L 10/14/16 08:07 Monocytes # 0.6 k/uL (0-1.0) 10/14/16 08:07 Eosinophils # 0.0 k/uL (0-0.7) 10/14/16 08:07 Basophils # 0.0 k/uL (0-0.2) 10/14/16 08:07 PT 11.1 sec (9.0-12.0) 10/08/16 16:00 INR 1.1 (<1.1) 10/08/16 16:00 APTT 26.2 sec (22.0-30.0) 10/08/16 16:00 Sodium 136 mmol/L (137-145) L 10/14/16 08:07 Potassium 4.5 mmol/L (3.5-5.1) 10/14/16 08:07 Chloride 102 mmol/L (98-107) 10/14/16 08:07 Carbon Dioxide 24 mmol/L (22-30) 10/14/16 08:07 Anion Gap 10 mmol/L 10/14/16 08:07 BUN 11 mg/dL (9-20) 10/14/16 08:07 Creatinine 0.48 mg/dL (0.66-1.25) L 10/14/16 08:07 Est GFR (MDRD) Af Amer >60 (>60 ml/min/1.73 sqM) 10/14/16 08:07 Est GFR (MDRD) Non-Af >60 (>60 ml/min/1.73 sqM) 10/14/16 08:07 Glucose 107 mg/dL (74-99) H 10/14/16 08:07 POC Glucose (mg/dL) 118 mg/dL (75-99) H 10/14/16 16:38 POC Glu Steaming Machine Operator ID Tnaa Mclaughlin 10/14/16 16:38 Calcium 9.2 mg/dL (8.4-10.2) 10/14/16 08:07 Magnesium 1.9 mg/dL (1.6-2.3) 10/08/16 16:00 Total Bilirubin 1.6 mg/dL (0.2-1.3) H 10/08/16 16:00 AST 23 U/L (17-59) 10/08/16 16:00 ALT 36 U/L (21-72) 10/08/16 16:00 Alkaline Phosphatase 177 U/L (38-126) H 10/08/16 16:00 Total Creatine Kinase 22 U/L (55-170) L 10/08/16 16:00 CK-MB (CK-2) 1.9 ng/mL (0.0-2.4) 10/08/16 16:00 CK-MB (CK-2) Rel Index 8.6 10/08/16 16:00 Troponin I <0.012 ng/mL (0.000-0.034) 10/08/16 16:00 NT-Pro-B Natriuret Pep 608 pg/mL 10/08/16 16:00 Total Protein 7.3 g/dL (6.3-8.2) 10/08/16 16:00 Albumin 3.6 g/dL (3.5-5.0) 10/08/16 16:00 Urine Color Yellow 10/09/16 23:45 Urine Appearance Clear (Clear) 10/09/16 23:45 Urine pH 6.0 (5.0-8.0) 10/09/16 23:45 Ur Specific [place] 1.030 (1.001-1.035) 10/09/16 23:45 Urine Protein Trace (Negative) H 10/09/16 23:45 Urine Glucose (UA) Negative (Negative) 10/09/16 23:45 Urine Ketones Trace (Negative) H 10/09/16 23:45 Urine Blood Negative (Negative) 10/09/16 23:45 Urine Nitrate Negative (Negative) 10/09/16 23:45 Urine Bilirubin Negative (Negative) 10/09/16 23:45 Urine Urobilinogen <2.0 mg/dL (<2.0) 10/09/16 23:45 Ur Leukocyte Esterase Negative (Negative) 10/09/16 23:45 Fluid Source Pleural 10/10/16 12:55 Fluid Color Yellow 10/10/16 12:55 Fluid Appearance Cloudy 10/10/16 12:55 Fluid RBC 1520 /uL 10/10/16 12:55 Fluid Nucleated Cells 460 /uL 10/10/16 12:55 Fluid Polynuclear WBCs 69 % 10/10/16 12:55 Fluid Mononuclear WBCs 31 % 10/10/16 12:55 Urine Opiates Screen Detected (NotDetected) H 10/09/16 23:45 Ur Oxycodone Screen Not Detected (NotDetected) 10/09/16 23:45 Urine Methadone Screen Not Detected (NotDetected) 10/09/16 23:45 Ur Propoxyphene Screen Not Detected (NotDetected) 10/09/16 23:45 Ur Barbiturates Screen Not Detected (NotDetected) 10/09/16 23:45 U Tricyclic Antidepress Not Detected (NotDetected) 10/09/16 23:45 Ur Phencyclidine Scrn Not Detected (NotDetected) 10/09/16 23:45 Ur Amphetamines Screen Not Detected (NotDetected) 10/09/16 23:45 U Methamphetamines Scrn Not Detected (NotDetected) 10/09/16 23:45 U Benzodiazepines Scrn Not Detected (NotDetected) 10/09/16 23:45 Urine Cocaine Screen Not Detected (NotDetected) 10/09/16 23:45 U Marijuana (THC) Screen Not Detected (NotDetected) 10/09/16 23:45 Influenza Type A RNA Not Detected (Not Detectd) 10/09/16 11:30 Influenza Type B (PCR) Not Detected (Not Detectd) 10/09/16 11:30 Microbiology 10/08/16 16:00 Blood Blood Culture - Final No Growth after 144 hours 10/10/16 12:55 Pleural Fluid Gram Stain - Final 10/10/16 12:55 Pleural Fluid Body Fluid Culture - Final 10/10/16 12:55 Pleural Fluid Anaerobic Culture - Preliminary 10/08/16 17:42 Sputum Gram Stain - Final 10/08/16 17:42 Sputum Sputum Culture - Final Pathology from pleural fluid remains negative. - Imaging and Cardiology CT scan - chest: report reviewed (Ongoing pneumonia unclear if has fungus ball.) Assessment and Plan (1) Acute exacerbation of chronic obstructive airways disease Narrative/Plan: 65-year-old male presents to hospital with recurrence of his significant shortness of breath. He became so weak he was crawling on the floor to call EMS to come and get him. A admission he has evidence of a large effusion to the right. He is undergone thoracentesis and feels just slightly better. Still feels quite weak. Does have a bit of sensitivity humor today, but is very worried about his overall status. The case is discussed with the hospitalist. Given his ongoing significant debility, the extensive effusion, and the lack of prior studies with definitive diagnosis. The patient has been seen by cardiothoracic surgery. Do not believe he would benefit from any type of intervention into his right chest. This is of concern given his significant weight loss over the last several months and is progressive and extensive debility. Patient is improving with a thoracentesis, antibiotic therapy, steroids, and respiratory treatments. The patient likely will go to rehab to complete his course of antibiotic therapy of Zosyn. With his complex pulmonary issues another 10 days would be reasonable. A computed tomography scan in the prone position was performed. Reveals evidence of ongoing significant pneumonia. No convincing evidence for fungus ball PICC line has been placed Follow-up chest x-ray for evaluation for need for further thoracentesis. Status: Acute (2) Bilateral pleural effusion Status: Acute (3) Cavitary pneumonia Status: Acute
[2016-10-14 21:06] LABS: Glucose,Whole Blood 133 mg/dL (75-99)
[2016-10-14] MEDS: LEVOFLOXACIN 750 MG TAB PO SCH (21:16)
[2016-10-15] MEDS: HYDROcodone/APAP 5-325MG 1 EACH TAB PO PRN ×2 (06:21→19:34)
[2016-10-15 07:41] LABS: Glucose,Whole Blood 108 mg/dL (75-99)
[2016-10-15] MEDS: INSULIN LISPRO (humaLOG) 300 UNIT/3 ML VIAL SQ SCH ×4 (08:45→21:33)
[2016-10-15] MEDS: PIPERACILLIN-TAZOBACTAM 3.375 GM in DEXTROSE/WATER 1 50ML.BAG IVPB SCH ×2 (08:48→16:19)
[2016-10-15] MEDS: SODIUM CHLORIDE 0.9% 1,000 ML IV SCH (08:48)
[2016-10-15] MEDS: HEPARIN SODIUM,PORCINE 5,000 UNIT/ML 1 ML VIAL SQ SCH ×2 (08:51→20:31)
[2016-10-15] MEDS: IPRATROPIUM-ALBUTEROL 3 ML NEB INHALATION SCH ×4 (08:51→18:58)
[2016-10-15] MEDS: FORMOTEROL FUMARATE 20 MCG/2 ML NEBU INHALATION SCH ×2 (08:51→18:58)
[2016-10-15] MEDS: methylPREDNISolone SOD SUCCI 40 MG/ML 1 ML VIAL IV SCH ×2 (08:51→20:31)
[2016-10-15] MEDS: PANTOPRAZOLE 40 MG TABLET PO SCH (08:51)
[2016-10-15] MEDS: BUDESONIDE 0.5 MG/2 ML NEBU INHALATION SCH ×2 (08:51→18:58)
--- NOTE | 2016-10-15 10:25 | XR ---
EXAMINATION TYPE: XR chest 2V DATE OF EXAM: 10/15/2016 10:13 AM COMPARISON: CT chest October 13, 2016. Two-view chest x-ray October 12, 2016. HISTORY: Pneumonia and pleural effusion progress study. TECHNIQUE: Frontal and lateral views of the chest are obtained. FINDINGS: There are moderate-sized bilateral pleural effusions redemonstrated. Underlying emphysemat ous change is again seen. There is basilar consolidation and/or atelectasis. Some fibrosis is likely present. There is additional right upper lung lateral consolidation redemonstrated. The cardiac silho uette size is difficult to assess but not enlarged on recent CT. Left-sided PICC line with tip in S VC is noted. Mild anterior compression fracture midthoracic spine roughly T8 level is noted presumed chronic. IMPRESSION: Chronic emphysematous change with moderate-sized bilateral pleural effusions as well as bibasilar consolidation and/or atelectasis and right upper lung lateral infiltrate all redemonstrated .
[2016-10-15 10:40] VITALS: BMI 19.5
--- NOTE | 2016-10-15 10:43 | P.PN ---
Subjective Principal diagnosis: RUL cavitary pneumonia Patient seen and examined. Patient had PICC line placed. He states he is still wheezing and gets very short of breath with exertion. He denies fevers and chills. He is still coughing up yellow-brown phlegm. It does have intermittent streaks of blood. Objective - Vital Signs Vital signs: Vital Signs Temp 97.7 F 10/15/16 08:06 Pulse 96 10/15/16 09:20 Resp 18 10/15/16 08:06 BP 111/67 10/15/16 08:06 Pulse Ox 97 10/15/16 08:06 Intake & Output 10/14/16 10/15/16 10/15/16 18:59 06:59 18:59 Intake Total 1250 Output Total 750 475 Balance 500 -475 Intake: Intake, IV Titration 850 Amount Piperacillin-Tazobactam 3 50 .375 gm In Dextrose/Water 1 50ml.bag @ 12.5 mls/hr IVPB Q8HR JANEY Rx#: [id number] Sodium Chloride 0.9% 1, 800 000 ml @ 100 mls/hr IV . Q10H JANEY Rx#:[id number] Oral 400 Output: Urine 750 475 Other: Voiding Method Urinal Urinal # Voids 1 1 # Bowel Movements 1 - Exam Gen: A+OX3, NAD CV: RRR, s1/s2 Lungs: coarse breath sounds bilaterally, expiratory wheezing and prolonged expiratory phase Abd: soft, NT/ND, +BS Ext. no edema - Labs CBC & Chem 7: 10/14/16 08:07 10/14/16 08:07 Labs: Abnormal Lab Results - Last 24 Hours (Table) 10/14/16 10/14/16 10/14/16 Range/Units 12:37 16:38 21:04 POC Glucose (mg/dL) 113 H 118 H 133 H (75-99) mg/dL 10/15/16 Range/Units 07:40 POC Glucose (mg/dL) 108 H (75-99) mg/dL Microbiology - Last 24 Hours (Table) 10/10/16 12:55 Anaerobic Culture - Final Pleural Fluid 10/10/16 12:55 Gram Stain - Final Pleural Fluid Body Fluid Culture - Final Assessment and Plan Plan: Acute on chronic hypoxic respiratory failure AECOPD Aspiration pneumonia RUL cavitary lung lesion Right pleural effusion, s/p thoracentesis Alcohol abuse O2 to maintain sat > or = 88% Fluid for cytology - negative for malignant cells ABX per ID - Levaquin and Zosyn - plan for 10 days of Zosyn Thoracentesis fluid apparently was not sent for LDH and total protein Bronchodilators and Pulmicort Continue Perforomist Flutter therapy IV Solumedrol taper Will consult IR for repeat thoracentesis Sputum culture PT and OT Consult dietitian GI and DVT prophylaxis
[2016-10-15 11:47] LABS: Mean Platelet Volume 6.9
--- NOTE | 2016-10-15 11:52 | US ---
EXAMINATION TYPE: US chest DATE OF EXAM: 10/15/2016 11:37 AM COMPARISON: Chest x-ray earlier today. CT chest from 2 days ago. CLINICAL HISTORY: bilateral pleural effusions. EXAM MEASUREMENTS: Right Pleural Effusion fluid pocket: 14.8 cm with debris Right skin to fluid thickness: 1.8 cm Left Pleural Effusion fluid pocket: 3.7 cm Left skin to fluid thickness: 1.6 cm Right side marked for possible thoracentesis . TECHNOLOGIST IMPRESSION: A large size nonsimple right-sided effusion is redemonstrated. Small left pleural effusion is noted. Overlying right skin is marked for possible thoracentesis. IMPRESSIONS: As above
[2016-10-15 11:58] LABS: Prothrombin Time 10.6 sec (9.0-12.0)
[2016-10-15 12:24] LABS: Glucose,Whole Blood 94 mg/dL (75-99)
[2016-10-15] MEDS: MULTIVITAMINS, THERA 1 EACH TAB PO SCH (12:28)
[2016-10-15] MEDS: THIAMINE 100 MG TAB PO SCH (12:28)
[2016-10-15] MEDS: FOLIC ACID 1 MG TAB PO SCH (12:28)
--- NOTE | 2016-10-15 14:18 | US ---
AP chest x-ray HISTORY: Status post thoracentesis Single frontal view of the chest correlated to prior exam on same date earlier time There is improvement in aeration at the right lung base. No evident pneumothorax. IMPRESSION: No evident complication status post thoracentesis.
--- NOTE | 2016-10-15 14:18 | XR ---
EXAMINATION TYPE: XR chest 1V DATE OF EXAM: 10/15/2016 2:14 PM HISTORY: s/p right thoracentesis. REFERENCE: Previous study dated 10/15/2016. FINDINGS: There is bibasilar consolidation. There is continuing airspace disease the right upper lobe consolidation. The heart is not enlarged. There are moderate, bilateral effusions. IMPRESSION: NO SIGNIFICANT INTERVAL CHANGE IN THE APPEARANCE OF THE CHEST.
--- NOTE | 2016-10-15 15:03 | P.PN ---
Subjective Principal diagnosis: Right upper lobe cavitary lesion S/P thoracentesis Pt currently sitting up in bed in no acute distress, very angry that was woken up early for chest x-ray. Objective - Vital Signs Vital signs: Vital Signs Temp 96.2 F L 10/14/16 23:00 Pulse 75 10/14/16 23:00 Resp 16 10/14/16 23:00 BP 128/76 10/14/16 23:00 Pulse Ox 95 10/14/16 23:00 Intake & Output 10/14/16 10/15/16 10/15/16 18:59 06:59 18:59 Intake Total 1250 Output Total 750 Balance 500 Intake: Intake, IV Titration 850 Amount Piperacillin-Tazobactam 3 50 .375 gm In Dextrose/Water 1 50ml.bag @ 12.5 mls/hr IVPB Q8HR JANEY Rx#: [id number] Sodium Chloride 0.9% 1, 800 000 ml @ 100 mls/hr IV . Q10H JANEY Rx#:[id number] Oral 400 Output: Urine 750 Other: Voiding Method Urinal # Voids 1 1 # Bowel Movements 1 - Constitutional General appearance: Present: cooperative, no acute distress - Respiratory Details: Lungs sounds diminished bilaterally. Respirations even, nonlabored. Remains on 3 L nasal cannula. - Cardiovascular Details: S1, S2 present. Regular rate and rhythm, normal sinus rhythm on telemetry. No edema present. - Gastrointestinal Gastrointestinal Comment(s): Abdomen soft, nontender, nondistended. Active bowel sounds 4 quadrants. Tolerating diet. - Genitourinary Genitourinary Comment(s): Continues to void clear, yellow urine per urinal. - Musculoskeletal Musculoskeletal: Present: generalized weakness - Psychiatric Psychiatric: Present: A&O x's 3, appropriate affect, intact judgment & insight - Allied health notes Allied health notes reviewed: nursing - Labs CBC & Chem 7: 10/14/16 08:07 10/14/16 08:07 Labs: Abnormal Lab Results - Last 24 Hours (Table) 10/14/16 10/14/16 10/14/16 Range/Units 08:04 08:07 08:07 RBC 4.06 L (4.30-5.90) m/uL Hgb 12.8 L (13.0-17.5) gm/dL Lymphocytes # 0.8 L (1.0-4.8) k/uL Sodium 136 L (137-145) mmol/L Creatinine 0.48 L (0.66-1.25) mg/dL Glucose 107 H (74-99) mg/dL POC Glucose (mg/dL) 112 H (75-99) mg/dL 10/14/16 10/14/16 10/14/16 Range/Units 12:37 16:38 21:04 RBC (4.30-5.90) m/uL Hgb (13.0-17.5) gm/dL Lymphocytes # (1.0-4.8) k/uL Sodium (137-145) mmol/L Creatinine (0.66-1.25) mg/dL Glucose (74-99) mg/dL POC Glucose (mg/dL) 113 H 118 H 133 H (75-99) mg/dL 10/15/16 Range/Units 07:40 RBC (4.30-5.90) m/uL Hgb (13.0-17.5) gm/dL Lymphocytes # (1.0-4.8) k/uL Sodium (137-145) mmol/L Creatinine (0.66-1.25) mg/dL Glucose (74-99) mg/dL POC Glucose (mg/dL) 108 H (75-99) mg/dL Microbiology - Last 24 Hours (Table) 10/10/16 12:55 Anaerobic Culture - Final Pleural Fluid 10/10/16 12:55 Gram Stain - Final Pleural Fluid Body Fluid Culture - Final - Imaging and Cardiology Chest x-ray: pending Assessment and Plan (1) Bilateral pleural effusion Status: Acute (2) COPD (chronic obstructive pulmonary disease) Status: Acute (3) Cavitary pneumonia Status: Acute Plan: 1. Cont antibiotics per primary/infectious disease recommendation. 2. Cont updrafts/steroids per pulmonology 3. Will follow culture and cytology from recent thoracentesis. 4. No plan for surgical intervention at this time. 5. Will follow while remains hospitalized. Time with Patient: Greater than 30
[2016-10-15 17:03] LABS: Glucose,Whole Blood 176 mg/dL (75-99)
[2016-10-15] MEDS: LEVOFLOXACIN 750 MG TAB PO SCH (20:31)
[2016-10-15 21:30] LABS: Glucose,Whole Blood 136 mg/dL (75-99)
--- NOTE | 2016-10-15 21:36 | PN ---
DATE OF SERVICE: 10/15/2016 This 65-year-old gentleman admitted with bilateral pneumonia and possibly cavitation in the right upper lobe, also has history of significant EtOH. Patient has a right pleural effusion. The patient also underwent thoracocentesis per recommendations. Otherwise, the patient also had a PICC line insertion and planning outpatient antibiotics for Thursday. Patient was also slated to go to rehab also for continued rehabilitation as well. No chest pain or palpitation. No fever. On exam, alert and oriented x3. Pulse 94, blood pressure 190/74, respirations 18, temperature 97.4, pulse ox 94% on room air. HEENT: Conjunctivae normal. NECK: No jugular venous distention. CARDIAC: S1 and S2 muffled. RESPIRATORY: Breath sounds diminished in the bases. A few scattered rhonchi. No crackles. Expiratory wheezing also present. Abdomen is soft, nontender. No mass palpable. LEGS: No edema. No swelling. NERVOUS SYSTEM: No focal deficits. LABS: Hemoglobin 12.8. Sodium 136. ASSESSMENT: 1. Bilateral pneumonia with failure of outpatient treatment with possible sepsis, present on admission with possibly gram-negative and aerobic, anaerobic. 2. Right upper lobe cavitary lesion, possibly anaerobic, filled with fluid. 3. Chronic obstructive pulmonary disease, acute exacerbation present on admission. 4. Right pleural effusion, status post thoracocentesis x2 during the present on admission. 5. Increased WBC. 6. History of EtOH. 7. Nicotine dependence. 8. Status post percutaneously-inserted central catheter line. 9. Hyponatremia. 10. Increased random blood sugar. 11. History of increased bilirubin. 12. Increased serum alkaline phosphatase. 13. Mild to moderate protein-calorie malnutrition with a body mass index of 19.8. 14. Chronic hypoxic respiratory failure, on home oxygen. 15. History of right pleural effusion with thoracocentesis previously. 16. Gait dysfunction. 17. FULL CODE. RECOMMENDATIONS AND DISCUSSION: Recommend to continue current medications. Continue with bronchodilators. Continue with antibiotics. Continue with PICC line care. Otherwise, await fluid reports. Closely follow with Pulmonary. Guarded prognosis because of multiple complex medical issues. Further recommendations to follow. MTDD
--- NOTE | 2016-10-15 23:04 | P.PN ---
Subjective Principal diagnosis: shortness of breath 65-year-old male who presents to hospital with increasing shortness of breath. He was recently hospitalized at this facility where he was on evidence of an exacerbation of his COPD with pneumonia. If progressive weight loss. Decreased appetite. Increasing weakness. He was evaluated that time and computed tomography scan showed evidence of significant effusions especially to the right side. As well as significant pneumonia with a cavitary lesion in the right upper lobe. During his stay he underwent bronchoscopy and to date samples are negative for fungus and pathology was negative for any malignancy. Was discharged home on antibiotic therapy but he failed rapidly in the outpatient setting. He became concerned and more short of breath. When she was crawling around at home because he was so short of breath. Because he presented back to the emergency center. If the admission he has evidence of extensive shortness of breath. He has hypoxia. It is evidence of marked worsening of his effusion to the right chest. Repeated thoracentesis allowed some improvement to his shortness of breath. He has steadily improved from admission. He however is very concerned about worsening of his status again. He relates it is not having high-grade fevers chills or rigors or sweats. Certainly feels very poorly. Exam at this time shows a patient to be status post a thoracentesis. There is still markedly diminished breath sounds at the right base. He appears to be acutely all. But his appetite improved. He is trying to eat his lunch. No other acute changes are noted at the moment. Data review from the last day shows evidence of no pathogens, no evidence of any fungal pathogens. AFB was negative also. Cytology was negative from both a bronchoscopy as well as the thoracentesis. The patient has advanced COPD and is having exacerbation of this as well as worsening effusion. Patient seen by pulmonary critical care and their plans are in process. For antimicrobial therapy. He is a piperacillin tazobactam as well as Levaquin until we have further data. Receiving steroid therapy also. Nutritional supplementation is an important part of his recovery and is being continued. Feels better today after his repeated thoracentesis. Is very concerned about what will happen to him next. Objective - Vital Signs Vital signs: Vital Signs Temp 97.1 F L 10/15/16 16:02 Pulse 80 10/15/16 19:23 Resp 18 10/15/16 16:02 BP 117/64 10/15/16 16:02 Pulse Ox 92 L 10/15/16 16:02 Intake & Output 10/15/16 10/15/16 10/16/16 06:59 18:59 06:59 Intake Total 450 200 Output Total 1025 Balance -575 200 Weight 65.5 kg Intake: IV 450 Piperacillin-Tazobactam 3 50 .375 gm In Dextrose/Water 1 50ml.bag @ 12.5 mls/hr IVPB Q8HR JANEY Rx#: [id number] Sodium Chloride 0.9% 1, 400 000 ml @ 100 mls/hr IV . Q10H JANEY Rx#:[id number] Oral 200 Output: Urine 1025 Other: Voiding Method Urinal # Voids 1 # Bowel Movements 1 - Exam Gen: This is a 65-year-old male who looks much older than stated age. He is dyspneic with minimal movement in bed. HEENT: Head is atraumatic, normocephalic. Pupils equal, round. Sclerae is anicteric. Conjunctiva slightly pale. Mucous members of the mouth are dry. Dentition is in poor order and patient has only a few teeth left. No thrush noted. NECK: Supple. No JVD. No lymphadenopathy. No thyromegaly. LUNGS: Coarse crackles throughout with occasional scattered expiratory wheeze. Improved aeration at the right base. Crackles are improved today. HEART: Regular rate and rhythm. No murmur. ABDOMEN: Soft. Bowel sounds are present. No masses. No tenderness. EXTREMITIES: No pedal edema. No calf tenderness. Dorsalis pedis +2 bilaterally. NEUROLOGICAL: Patient is awake, alert and oriented x3. - Labs CBC & Chem 7: 10/15/16 11:16 10/14/16 08:07 Labs: Abnormal Lab Results - Last 24 Hours (Table) 10/15/16 10/15/16 10/15/16 Range/Units 07:40 17:02 21:28 POC Glucose (mg/dL) 108 H 176 H 136 H (75-99) mg/dL Microbiology - Last 24 Hours (Table) 10/10/16 12:55 Anaerobic Culture - Final Pleural Fluid Laboratory Results WBC 9.0 k/uL (3.8-10.6) 10/14/16 08:07 RBC 4.06 m/uL (4.30-5.90) L 10/14/16 08:07 Hgb 12.8 gm/dL (13.0-17.5) L 10/14/16 08:07 Hct 39.0 % (39.0-53.0) 10/14/16 08:07 MCV 96.2 fL (80.0-100.0) 10/14/16 08:07 MCH 31.6 pg (25.0-35.0) 10/14/16 08:07 MCHC 32.9 g/dL (31.0-37.0) 10/14/16 08:07 RDW 13.7 % (11.5-15.5) 10/14/16 08:07 Plt Count 200 k/uL (150-450) 10/15/16 11:16 Neutrophils % 82 % 10/14/16 08:07 Lymphocytes % 9 % 10/14/16 08:07 Monocytes % 6 % 10/14/16 08:07 Eosinophils % 0 % 10/14/16 08:07 Basophils % 0 % 10/14/16 08:07 Neutrophils # 7.4 k/uL (1.3-7.7) 10/14/16 08:07 Lymphocytes # 0.8 k/uL (1.0-4.8) L 10/14/16 08:07 Monocytes # 0.6 k/uL (0-1.0) 10/14/16 08:07 Eosinophils # 0.0 k/uL (0-0.7) 10/14/16 08:07 Basophils # 0.0 k/uL (0-0.2) 10/14/16 08:07 PT 10.6 sec (9.0-12.0) 10/15/16 11:13 INR 1.0 (<1.1) 10/15/16 11:13 APTT 26.2 sec (22.0-30.0) 10/08/16 16:00 Sodium 136 mmol/L (137-145) L 10/14/16 08:07 Potassium 4.5 mmol/L (3.5-5.1) 10/14/16 08:07 Chloride 102 mmol/L (98-107) 10/14/16 08:07 Carbon Dioxide 24 mmol/L (22-30) 10/14/16 08:07 Anion Gap 10 mmol/L 10/14/16 08:07 BUN 11 mg/dL (9-20) 10/14/16 08:07 Creatinine 0.48 mg/dL (0.66-1.25) L 10/14/16 08:07 Est GFR (MDRD) Af Amer >60 (>60 ml/min/1.73 sqM) 10/14/16 08:07 Est GFR (MDRD) Non-Af >60 (>60 ml/min/1.73 sqM) 10/14/16 08:07 Glucose 107 mg/dL (74-99) H 10/14/16 08:07 POC Glucose (mg/dL) 136 mg/dL (75-99) H 10/15/16 21:28 POC Glu Sonography Technician Ebony Bernal 10/15/16 21:28 Calcium 9.2 mg/dL (8.4-10.2) 10/14/16 08:07 Magnesium 1.9 mg/dL (1.6-2.3) 10/08/16 16:00 Total Bilirubin 1.6 mg/dL (0.2-1.3) H 10/08/16 16:00 AST 23 U/L (17-59) 10/08/16 16:00 ALT 36 U/L (21-72) 10/08/16 16:00 Alkaline Phosphatase 177 U/L (38-126) H 10/08/16 16:00 Total Creatine Kinase 22 U/L (55-170) L 10/08/16 16:00 CK-MB (CK-2) 1.9 ng/mL (0.0-2.4) 10/08/16 16:00 CK-MB (CK-2) Rel Index 8.6 10/08/16 16:00 Troponin I <0.012 ng/mL (0.000-0.034) 10/08/16 16:00 NT-Pro-B Natriuret Pep 608 pg/mL 10/08/16 16:00 Total Protein 7.3 g/dL (6.3-8.2) 10/08/16 16:00 Albumin 3.6 g/dL (3.5-5.0) 10/08/16 16:00 Urine Color Yellow 10/09/16 23:45 Urine Appearance Clear (Clear) 10/09/16 23:45 Urine pH 6.0 (5.0-8.0) 10/09/16 23:45 Ur Specific [place] 1.030 (1.001-1.035) 10/09/16 23:45 Urine Protein Trace (Negative) H 10/09/16 23:45 Urine Glucose (UA) Negative (Negative) 10/09/16 23:45 Urine Ketones Trace (Negative) H 10/09/16 23:45 Urine Blood Negative (Negative) 10/09/16 23:45 Urine Nitrate Negative (Negative) 10/09/16 23:45 Urine Bilirubin Negative (Negative) 10/09/16 23:45 Urine Urobilinogen <2.0 mg/dL (<2.0) 10/09/16 23:45 Ur Leukocyte Esterase Negative (Negative) 10/09/16 23:45 Fluid Source Pleural 10/10/16 12:55 Fluid Color Yellow 10/10/16 12:55 Fluid Appearance Cloudy 10/10/16 12:55 Fluid RBC 1520 /uL 10/10/16 12:55 Fluid Nucleated Cells 460 /uL 10/10/16 12:55 Fluid Polynuclear WBCs 69 % 10/10/16 12:55 Fluid Mononuclear WBCs 31 % 10/10/16 12:55 Urine Opiates Screen Detected (NotDetected) H 10/09/16 23:45 Ur Oxycodone Screen Not Detected (NotDetected) 10/09/16 23:45 Urine Methadone Screen Not Detected (NotDetected) 10/09/16 23:45 Ur Propoxyphene Screen Not Detected (NotDetected) 10/09/16 23:45 Ur Barbiturates Screen Not Detected (NotDetected) 10/09/16 23:45 U Tricyclic Antidepress Not Detected (NotDetected) 10/09/16 23:45 Ur Phencyclidine Scrn Not Detected (NotDetected) 10/09/16 23:45 Ur Amphetamines Screen Not Detected (NotDetected) 10/09/16 23:45 U Methamphetamines Scrn Not Detected (NotDetected) 10/09/16 23:45 U Benzodiazepines Scrn Not Detected (NotDetected) 10/09/16 23:45 Urine Cocaine Screen Not Detected (NotDetected) 10/09/16 23:45 U Marijuana (THC) Screen Not Detected (NotDetected) 10/09/16 23:45 Influenza Type A RNA Not Detected (Not Detectd) 10/09/16 11:30 Influenza Type B (PCR) Not Detected (Not Detectd) 10/09/16 11:30 Microbiology 10/10/16 12:55 Pleural Fluid Anaerobic Culture - Final 10/08/16 16:00 Blood Blood Culture - Final No Growth after 144 hours 10/10/16 12:55 Pleural Fluid Gram Stain - Final 10/10/16 12:55 Pleural Fluid Body Fluid Culture - Final 10/08/16 17:42 Sputum Gram Stain - Final 10/08/16 17:42 Sputum Sputum Culture - Final Assessment and Plan (1) Acute exacerbation of chronic obstructive airways disease Narrative/Plan: 65-year-old male presents to hospital with recurrence of his significant shortness of breath. He became so weak he was crawling on the floor to call EMS to come and get him. A admission he has evidence of a large effusion to the right. He is undergone thoracentesis and feels just slightly better. Still feels quite weak. Does have a bit of sensitivity humor today, but is very worried about his overall status. The case is discussed with the hospitalist. Given his ongoing significant debility, the extensive effusion, and the lack of prior studies with definitive diagnosis. The patient has been seen by cardiothoracic surgery. Do not believe he would benefit from any type of intervention into his right chest. This is of concern given his significant weight loss over the last several months and is progressive and extensive debility. Patient is improving with a thoracentesis, antibiotic therapy, steroids, and respiratory treatments. The patient likely will go to rehab to complete his course of antibiotic therapy of Zosyn. With his complex pulmonary issues another 10 days would be reasonable. A computed tomography scan in the prone position was performed. Reveals evidence of ongoing significant pneumonia. No convincing evidence for fungus ball PICC line has been placed Follow-up thoracentesis been performed. Patient is feeling better. Overall plan certainly is in process. As far as etiology of his recurrent pleural effusion remains of concern. Cytology has been negative. Status: Acute (2) Bilateral pleural effusion Status: Acute (3) Cavitary pneumonia Status: Acute
[2016-10-16] MEDS: PIPERACILLIN-TAZOBACTAM 3.375 GM in DEXTROSE/WATER 1 50ML.BAG IVPB SCH ×4 (00:04→23:29)
[2016-10-16] MEDS: FORMOTEROL FUMARATE 20 MCG/2 ML NEBU INHALATION SCH ×2 (07:01→20:20)
[2016-10-16] MEDS: IPRATROPIUM-ALBUTEROL 3 ML NEB INHALATION SCH ×4 (07:01→20:21)
[2016-10-16] MEDS: BUDESONIDE 0.5 MG/2 ML NEBU INHALATION SCH ×2 (07:01→20:21)
[2016-10-16 07:45] LABS: Glucose,Whole Blood 111 mg/dL (75-99)
[2016-10-16] MEDS: INSULIN LISPRO (humaLOG) 300 UNIT/3 ML VIAL SQ SCH ×4 (07:53→21:06)
[2016-10-16] MEDS: HEPARIN SODIUM,PORCINE 5,000 UNIT/ML 1 ML VIAL SQ SCH ×2 (08:38→20:59)
[2016-10-16] MEDS: methylPREDNISolone SOD SUCCI 40 MG/ML 1 ML VIAL IV SCH ×2 (08:38→20:32)
[2016-10-16] MEDS: PANTOPRAZOLE 40 MG TABLET PO SCH (08:38)
[2016-10-16 08:45] VITALS: RESP 16
[2016-10-16] MEDS: HYDROcodone/APAP 5-325MG 1 EACH TAB PO PRN ×2 (08:45→20:59)
--- NOTE | 2016-10-16 10:02 | P.PN ---
Subjective Principal diagnosis: Right upper lobe cavitary lesion S/P thoracentesis Pt sleeping in no apparent distress. Objective - Vital Signs Vital signs: Vital Signs Temp 97.4 F L 10/16/16 08:44 Pulse 67 10/16/16 08:44 Resp 16 10/16/16 08:44 BP 100/68 10/16/16 08:44 Pulse Ox 100 10/16/16 08:44 Intake & Output 10/15/16 10/16/16 10/16/16 18:59 06:59 18:59 Intake Total 450 200 Output Total 1025 600 Balance -575 -400 Weight 65.5 kg Intake: IV 450 Piperacillin-Tazobactam 3 50 .375 gm In Dextrose/Water 1 50ml.bag @ 12.5 mls/hr IVPB Q8HR JANEY Rx#: [id number] Sodium Chloride 0.9% 1, 400 000 ml @ 100 mls/hr IV . Q10H JANEY Rx#:[id number] Oral 200 Output: Urine 1025 600 Other: Voiding Method Urinal - Constitutional General appearance: Present: no acute distress - Respiratory Details: currently on 3 LPM NC. respirations even/non-labored Respiratory: bilateral: diminished - Cardiovascular Details: NSR on telemetry Rhythm: regular Heart sounds: normal: S1, S2 - Gastrointestinal Gastrointestinal Comment(s): abd soft/NT/ND General gastrointestinal: Present: normal bowel sounds - Genitourinary Genitourinary Comment(s): voiding clear yellow urine per urinal - Allied health notes Allied health notes reviewed: nursing - Labs CBC & Chem 7: 10/15/16 11:16 10/14/16 08:07 Labs: Abnormal Lab Results - Last 24 Hours (Table) 10/15/16 10/15/16 10/16/16 Range/Units 17:02 21:28 07:42 POC Glucose (mg/dL) 176 H 136 H 111 H (75-99) mg/dL Assessment and Plan (1) Bilateral pleural effusion Status: Acute (2) COPD (chronic obstructive pulmonary disease) Status: Acute (3) Cavitary pneumonia Status: Acute Plan: 1. Cont antibiotics per primary/infectious disease recommendation. 2. Cont updrafts/steroids per pulmonology 3. cytology from thoracentesis demonstrates no malignancy. 4. No plan for surgical intervention at this time. 5. Will follow while remains hospitalized. Time with Patient: Less than 30
[2016-10-16 12:09] LABS: Glucose,Whole Blood 122 mg/dL (75-99)
[2016-10-16] MEDS: MULTIVITAMINS, THERA 1 EACH TAB PO SCH (13:21)
[2016-10-16] MEDS: THIAMINE 100 MG TAB PO SCH (13:22)
[2016-10-16] MEDS: FOLIC ACID 1 MG TAB PO SCH (13:22)
--- NOTE | 2016-10-16 14:29 | PN ---
Patient is admitted for hypoxic respiratory failure secondary to bilateral pleural effusions and patient is also being treated for bilateral pneumonia with cavitary lesion. Although there is no echocardiogram, patient has multiple admissions for at least pleural effusions and they removed about 1 L yesterday of pleural fluid. Labs are still pending. Patient has right-sided thoracocentesis and patient has a PICC line that was placed and I will obtain an echocardiogram to make sure there is no CHF that is contributing to his bilateral pulmonary edema. The pleural fluid labs are still pending. I do not have any pleural fluid labs available at this point of time. Patient had cavitary lesions in the past. Appears to have right cavitary lesion and patient should be continued on Zosyn IV for 10 more days as recommended by Dr. Ricci and all such arrangements were made, but I will obtain an echocardiogram and patient is still getting significantly short of breath with minimal exertion. REVIEW OF SYSTEMS: RESPIRATORY: As described in HPI. CARDIOVASCULAR: No chest pain, no orthopnea, no PND, no palpitations. GASTROINTESTINAL: No diarrhea, nausea or vomiting. No abdominal pain. Normoactive bowel sounds. NEUROLOGIC: No headaches, no weakness, no numbness. Medications were reviewed. PHYSICAL EXAMINATION: VITAL SIGNS: Temperature 97.4, pulse of 78, respiratory rate of 16, blood pressure is 100/68, saturating at 100% on 3 L. We can cut down the oxygen now since he got the thoracocentesis, his respiratory status appears to have improved. GENERAL EXAMINATION: Patient appears to be tired, weak and elderly. LUNG EXAMINATION: Mildly rhonchorous breath sounds. No wheezing was appreciated. No crackles were appreciated. HEENT: Pupils are round and equally reacting to light. EOMI. No scleral icterus. No conjunctival pallor. Normocephalic, atraumatic. No pharyngeal erythema. No thyromegaly. CARDIOVASCULAR: S1 and S2 present. No murmurs, rubs, or gallops. ABDOMEN: Soft, nontender, nondistended, normoactive bowel sounds. No palpable organomegaly. MUSCULOSKELETAL: No joint swelling or deformity. EXTREMITIES: No cyanosis, clubbing, or pedal edema. NEUROLOGICAL: Gross neurological examination did not reveal any focal deficits. SKIN: No rashes. ASSESSMENT AND PLAN: 1. Bilateral pneumonia, failed outpatient therapy with sepsis. Patient is on above-mentioned antibiotics. 2. Right upper lobe cavitary lesion, possibly anaerobic pneumonia and abscess. 3. Chronic obstructive pulmonary disease with exacerbation. 4. Rule out congestive heart failure because of bilateral pleural effusion predominantly in the right lower lobe. 5. History of alcohol dependence. 6. Acute on chronic hypercapnic respiratory failure secondary to chronic obstructive pulmonary disease exacerbation and chronic obstructive pulmonary disease. 7. Mild protein calorie malnutrition. PLAN: As mentioned in interval history. MTDD
--- NOTE | 2016-10-16 16:33 | P.PN ---
Subjective Principal diagnosis: Right upper lobe cavitary lesion Patient seen and examined. Patient states he is not feeling any better. He is still coughing up copious amount of yellow-green phlegm with streaks of blood. He states the thoracentesis does help him for a period of time but once the fluid build back up he gets short of breath again. Objective - Vital Signs Vital signs: Vital Signs Temp 96.9 F L 10/16/16 15:00 Pulse 80 10/16/16 16:23 Resp 16 10/16/16 15:00 BP 126/69 10/16/16 15:00 Pulse Ox 93 L 10/16/16 15:00 Intake & Output 10/15/16 10/16/16 10/16/16 18:59 06:59 18:59 Intake Total 450 200 525 Output Total 1025 600 600 Balance -575 -400 -75 Weight 65.5 kg Intake: IV 450 Piperacillin-Tazobactam 3 50 .375 gm In Dextrose/Water 1 50ml.bag @ 12.5 mls/hr IVPB Q8HR JANEY Rx#: [id number] Sodium Chloride 0.9% 1, 400 000 ml @ 100 mls/hr IV . Q10H JANEY Rx#:[id number] Oral 200 525 Output: Urine 1025 600 600 Other: Voiding Method Urinal Urinal # Voids 2 - Exam Gen: A+OX3, NAD CV: RRR, s1/s2 Lungs: coarse breath sounds bilaterally, expiratory wheezing and prolonged expiratory phase Abd: soft, NT/ND, +BS Ext. no edema - Labs CBC & Chem 7: 10/15/16 11:16 10/14/16 08:07 Labs: Abnormal Lab Results - Last 24 Hours (Table) 10/15/16 10/15/16 10/16/16 Range/Units 17:02 21:28 07:42 POC Glucose (mg/dL) 176 H 136 H 111 H (75-99) mg/dL 10/16/16 Range/Units 12:07 POC Glucose (mg/dL) 122 H (75-99) mg/dL Assessment and Plan Plan: Acute on chronic hypoxic respiratory failure AECOPD Aspiration pneumonia RUL cavitary lung lesion Right pleural effusion, s/p thoracentesis Alcohol abuse O2 to maintain sat > or = 88% Fluid for cytology - negative for malignant cells ABX per ID - Levaquin and Zosyn - plan for 10 days of Zosyn Thoracentesis fluid apparently was not sent for LDH and total protein Bronchodilators and Pulmicort Continue Perforomist Flutter therapy IV Solumedrol taper PT and OT GI and DVT prophylaxis The patient is frustrated and states he doesn't feel like he's gotten any better since his admission. He is concerned that he may not get any better. The possibility of transfer to a tertiary care center such as [facility] is discussed with the patient. He is agreeable to transfer. This is discussed with Dr. Quesada who will further discuss with the patient in the morning and ultimately decide about the need for transfer.
[2016-10-16 17:26] LABS: Glucose,Whole Blood 143 mg/dL (75-99)
[2016-10-16] MEDS: LEVOFLOXACIN 750 MG TAB PO SCH (20:55)
[2016-10-16 21:14] LABS: Glucose,Whole Blood 155 mg/dL (75-99)
--- NOTE | 2016-10-16 23:09 | P.PN ---
Subjective Principal diagnosis: shortness of breath 65-year-old male who presents to hospital with increasing shortness of breath. He was recently hospitalized at this facility where he was on evidence of an exacerbation of his COPD with pneumonia. If progressive weight loss. Decreased appetite. Increasing weakness. He was evaluated that time and computed tomography scan showed evidence of significant effusions especially to the right side. As well as significant pneumonia with a cavitary lesion in the right upper lobe. During his stay he underwent bronchoscopy and to date samples are negative for fungus and pathology was negative for any malignancy. Was discharged home on antibiotic therapy but he failed rapidly in the outpatient setting. He became concerned and more short of breath. When she was crawling around at home because he was so short of breath. Because he presented back to the emergency center. If the admission he has evidence of extensive shortness of breath. He has hypoxia. It is evidence of marked worsening of his effusion to the right chest. Repeated thoracentesis allowed some improvement to his shortness of breath. He has steadily improved from admission. He however is very concerned about worsening of his status again. He relates it is not having high-grade fevers chills or rigors or sweats. Certainly feels very poorly. Exam at this time shows a patient to be status post a thoracentesis. There is still markedly diminished breath sounds at the right base. He appears to be acutely all. But his appetite improved. He is trying to eat his lunch. No other acute changes are noted at the moment. Data review from the last day shows evidence of no pathogens, no evidence of any fungal pathogens. AFB was negative also. Cytology was negative from both a bronchoscopy as well as the thoracentesis. The patient has advanced COPD and is having exacerbation of this as well as worsening effusion. Patient seen by pulmonary critical care and their plans are in process. For antimicrobial therapy. He is a piperacillin tazobactam as well as Levaquin until we have further data. Receiving steroid therapy also. Nutritional supplementation is an important part of his recovery and is being continued. Feels better after his repeated thoracentesis. Is very concerned about what will happen to him next. Objective - Vital Signs Vital signs: Vital Signs Temp 96.9 F L 10/16/16 15:00 Pulse 74 10/16/16 20:39 Resp 16 10/16/16 18:56 BP 126/69 10/16/16 15:00 Pulse Ox 93 L 10/16/16 15:00 Intake & Output 10/16/16 10/16/16 10/17/16 06:59 18:59 06:59 Intake Total 200 525 Output Total 600 1200 300 Balance -400 -675 -300 Weight 65.5 kg Intake: Oral 200 525 Output: Urine 600 1200 300 Other: Voiding Method Bedside Commode Urinal # Voids 2 1 # Bowel Movements 1 - Exam Gen: This is a 65-year-old male who looks much older than stated age. He is dyspneic with minimal movement in bed. HEENT: Head is atraumatic, normocephalic. Pupils equal, round. Sclerae is anicteric. Conjunctiva slightly pale. Mucous members of the mouth are dry. Dentition is in poor order and patient has only a few teeth left. No thrush noted. NECK: Supple. No JVD. No lymphadenopathy. No thyromegaly. LUNGS: Coarse crackles throughout with occasional scattered expiratory wheeze. Improved aeration at the right base. Crackles are improved today. HEART: Regular rate and rhythm. No murmur. ABDOMEN: Soft. Bowel sounds are present. No masses. No tenderness. EXTREMITIES: No pedal edema. No calf tenderness. Dorsalis pedis +2 bilaterally. NEUROLOGICAL: Patient is awake, alert and oriented x3. - Labs CBC & Chem 7: 10/15/16 11:16 10/14/16 08:07 Labs: Abnormal Lab Results - Last 24 Hours (Table) 10/16/16 10/16/16 10/16/16 Range/Units 07:42 12:07 17:21 POC Glucose (mg/dL) 111 H 122 H 143 H (75-99) mg/dL 10/16/16 Range/Units 21:04 POC Glucose (mg/dL) 155 H (75-99) mg/dL Laboratory Results WBC 9.0 k/uL (3.8-10.6) 10/14/16 08:07 RBC 4.06 m/uL (4.30-5.90) L 10/14/16 08:07 Hgb 12.8 gm/dL (13.0-17.5) L 10/14/16 08:07 Hct 39.0 % (39.0-53.0) 10/14/16 08:07 MCV 96.2 fL (80.0-100.0) 10/14/16 08:07 MCH 31.6 pg (25.0-35.0) 10/14/16 08:07 MCHC 32.9 g/dL (31.0-37.0) 10/14/16 08:07 RDW 13.7 % (11.5-15.5) 10/14/16 08:07 Plt Count 200 k/uL (150-450) 10/15/16 11:16 Neutrophils % 82 % 10/14/16 08:07 Lymphocytes % 9 % 10/14/16 08:07 Monocytes % 6 % 10/14/16 08:07 Eosinophils % 0 % 10/14/16 08:07 Basophils % 0 % 10/14/16 08:07 Neutrophils # 7.4 k/uL (1.3-7.7) 10/14/16 08:07 Lymphocytes # 0.8 k/uL (1.0-4.8) L 10/14/16 08:07 Monocytes # 0.6 k/uL (0-1.0) 10/14/16 08:07 Eosinophils # 0.0 k/uL (0-0.7) 10/14/16 08:07 Basophils # 0.0 k/uL (0-0.2) 10/14/16 08:07 PT 10.6 sec (9.0-12.0) 10/15/16 11:13 INR 1.0 (<1.1) 10/15/16 11:13 APTT 26.2 sec (22.0-30.0) 10/08/16 16:00 Sodium 136 mmol/L (137-145) L 10/14/16 08:07 Potassium 4.5 mmol/L (3.5-5.1) 10/14/16 08:07 Chloride 102 mmol/L (98-107) 10/14/16 08:07 Carbon Dioxide 24 mmol/L (22-30) 10/14/16 08:07 Anion Gap 10 mmol/L 10/14/16 08:07 BUN 11 mg/dL (9-20) 10/14/16 08:07 Creatinine 0.48 mg/dL (0.66-1.25) L 10/14/16 08:07 Est GFR (MDRD) Af Amer >60 (>60 ml/min/1.73 sqM) 10/14/16 08:07 Est GFR (MDRD) Non-Af >60 (>60 ml/min/1.73 sqM) 10/14/16 08:07 Glucose 107 mg/dL (74-99) H 10/14/16 08:07 POC Glucose (mg/dL) 155 mg/dL (75-99) H 10/16/16 21:04 POC Glu Tow Car Driver Dulce Monk 10/16/16 21:04 Calcium 9.2 mg/dL (8.4-10.2) 10/14/16 08:07 Magnesium 1.9 mg/dL (1.6-2.3) 10/08/16 16:00 Total Bilirubin 1.6 mg/dL (0.2-1.3) H 10/08/16 16:00 AST 23 U/L (17-59) 10/08/16 16:00 ALT 36 U/L (21-72) 10/08/16 16:00 Alkaline Phosphatase 177 U/L (38-126) H 10/08/16 16:00 Total Creatine Kinase 22 U/L (55-170) L 10/08/16 16:00 CK-MB (CK-2) 1.9 ng/mL (0.0-2.4) 10/08/16 16:00 CK-MB (CK-2) Rel Index 8.6 10/08/16 16:00 Troponin I <0.012 ng/mL (0.000-0.034) 10/08/16 16:00 NT-Pro-B Natriuret Pep 608 pg/mL 10/08/16 16:00 Total Protein 7.3 g/dL (6.3-8.2) 10/08/16 16:00 Albumin 3.6 g/dL (3.5-5.0) 10/08/16 16:00 Urine Color Yellow 10/09/16 23:45 Urine Appearance Clear (Clear) 10/09/16 23:45 Urine pH 6.0 (5.0-8.0) 10/09/16 23:45 Ur Specific [place] 1.030 (1.001-1.035) 10/09/16 23:45 Urine Protein Trace (Negative) H 10/09/16 23:45 Urine Glucose (UA) Negative (Negative) 10/09/16 23:45 Urine Ketones Trace (Negative) H 10/09/16 23:45 Urine Blood Negative (Negative) 10/09/16 23:45 Urine Nitrate Negative (Negative) 10/09/16 23:45 Urine Bilirubin Negative (Negative) 10/09/16 23:45 Urine Urobilinogen <2.0 mg/dL (<2.0) 10/09/16 23:45 Ur Leukocyte Esterase Negative (Negative) 10/09/16 23:45 Fluid Source Pleural 10/10/16 12:55 Fluid Color Yellow 10/10/16 12:55 Fluid Appearance Cloudy 10/10/16 12:55 Fluid RBC 1520 /uL 10/10/16 12:55 Fluid Nucleated Cells 460 /uL 10/10/16 12:55 Fluid Polynuclear WBCs 69 % 10/10/16 12:55 Fluid Mononuclear WBCs 31 % 10/10/16 12:55 Urine Opiates Screen Detected (NotDetected) H 10/09/16 23:45 Ur Oxycodone Screen Not Detected (NotDetected) 10/09/16 23:45 Urine Methadone Screen Not Detected (NotDetected) 10/09/16 23:45 Ur Propoxyphene Screen Not Detected (NotDetected) 10/09/16 23:45 Ur Barbiturates Screen Not Detected (NotDetected) 10/09/16 23:45 U Tricyclic Antidepress Not Detected (NotDetected) 10/09/16 23:45 Ur Phencyclidine Scrn Not Detected (NotDetected) 10/09/16 23:45 Ur Amphetamines Screen Not Detected (NotDetected) 10/09/16 23:45 U Methamphetamines Scrn Not Detected (NotDetected) 10/09/16 23:45 U Benzodiazepines Scrn Not Detected (NotDetected) 10/09/16 23:45 Urine Cocaine Screen Not Detected (NotDetected) 10/09/16 23:45 U Marijuana (THC) Screen Not Detected (NotDetected) 10/09/16 23:45 Influenza Type A RNA Not Detected (Not Detectd) 10/09/16 11:30 Influenza Type B (PCR) Not Detected (Not Detectd) 10/09/16 11:30 Microbiology 10/10/16 12:55 Pleural Fluid Anaerobic Culture - Final 10/08/16 16:00 Blood Blood Culture - Final No Growth after 144 hours 10/10/16 12:55 Pleural Fluid Gram Stain - Final 10/10/16 12:55 Pleural Fluid Body Fluid Culture - Final 10/08/16 17:42 Sputum Gram Stain - Final 10/08/16 17:42 Sputum Sputum Culture - Final Echocardiogram is pending Cytology has been negative to date for malignant cells Assessment and Plan (1) Acute exacerbation of chronic obstructive airways disease Narrative/Plan: 65-year-old male presents to hospital with recurrence of his significant shortness of breath. He became so weak he was crawling on the floor to call EMS to come and get him. A admission he has evidence of a large effusion to the right. He is undergone thoracentesis and feels just slightly better. Still feels quite weak. Does have a bit of sensitivity humor today, but is very worried about his overall status. The case is discussed with the hospitalist. Given his ongoing significant debility, the extensive effusion, and the lack of prior studies with definitive diagnosis. The patient has been seen by cardiothoracic surgery. Do not believe he would benefit from any type of intervention into his right chest. This is of concern given his significant weight loss over the last several months and is progressive and extensive debility. Patient is improving with a thoracentesis, antibiotic therapy, steroids, and respiratory treatments. The patient likely will go to rehab to complete his course of antibiotic therapy of Zosyn. With his complex pulmonary issues another 10 days would be reasonable. A computed tomography scan in the prone position was performed. Reveals evidence of ongoing significant pneumonia. No convincing evidence for fungus ball PICC line has been placed Follow-up thoracentesis been performed. Patient is feeling better. As far as etiology of his recurrent pleural effusion remains of concern. Cytology has been negative. Echocardiogram has been requested If no further obvious answers are found there was contemplation of transfer to the tertiary care center for further interventions Status: Acute (2) Bilateral pleural effusion Status: Acute (3) Cavitary pneumonia Status: Acute
[2016-10-17 07:17] LABS: Glucose,Whole Blood 113 mg/dL (75-99)
[2016-10-17 07:40] VITALS: BP 102/65; TEMP 96.4
[2016-10-17] MEDS: INSULIN LISPRO (humaLOG) 300 UNIT/3 ML VIAL SQ SCH ×2 (08:10→12:10)
[2016-10-17] MEDS: PIPERACILLIN-TAZOBACTAM 3.375 GM in DEXTROSE/WATER 1 50ML.BAG IVPB SCH (08:10)
[2016-10-17] MEDS: PANTOPRAZOLE 40 MG TABLET PO SCH (08:10)
[2016-10-17] MEDS: methylPREDNISolone SOD SUCCI 40 MG/ML 1 ML VIAL IV SCH (08:11)
[2016-10-17] MEDS: HEPARIN SODIUM,PORCINE 5,000 UNIT/ML 1 ML VIAL SQ SCH (08:11)
[2016-10-17] MEDS: IPRATROPIUM-ALBUTEROL 3 ML NEB INHALATION SCH ×2 (09:19→11:38)
[2016-10-17] MEDS: BUDESONIDE 0.5 MG/2 ML NEBU INHALATION SCH (09:19)
[2016-10-17] MEDS: FORMOTEROL FUMARATE 20 MCG/2 ML NEBU INHALATION SCH (09:20)
[2016-10-17 09:48] LABS: CHCM 33.5; HCT 44.6 % (39.0-53.0); HDW 2.43; HGB 14.4 gm/dL (13.0-17.5); MCHC 32.3 g/dL (31.0-37.0); MCV 96.1 fL (80.0-100.0); Mean Platelet Volume 6.9; RBC 4.64 m/uL (4.30-5.90); RDW 13.8 % (11.5-15.5); WBC 9.8 k/uL (3.8-10.6)
[2016-10-17 10:08] LABS: Anion Gap 14 mmol/L; Blood Urea Nitrogen 16 mg/dL (9-20); Calcium 9.4 mg/dL (8.4-10.2); Carbon Dioxide 23 mmol/L (22-30); Chloride 98 mmol/L (98-107); Glucose 167 mg/dL (74-99); Non-African American GFR(MDRD) >60 (>60 ml/min/1.73 sqM); Potassium 4.2 mmol/L (3.5-5.1); Sodium 135 mmol/L (137-145)
--- NOTE | 2016-10-17 11:38 | ECHOF ---
Referral Reason:R/o CHF MEASUREMENTS -------- HEIGHT: 182.9 cm WEIGHT: 65.3 kg BP: 100/68 RVIDd: 3.5 cm (< 3.3) IVSd: 1.0 cm (0.6 - 1.1) LVIDd: 4.0 cm (3.9 - 5.3) LVPWd: 1.0 cm (0.6 - 1.1) IVSs: 1.6 cm LVIDs: 2.6 cm LVPWs: 1.4 cm LA Diam: 2.6 cm (2.7 - 3.8) LAESV Index (A-L): 14.22 ml/m Ao Diam: 2.6 cm (2.0 - 3.7) AV Cusp: 1.4 cm (1.5 - 2.6) LA Diam: 2.3 cm (2.7 - 3.8) MV EXCURSION: 17.918 mm (> 18.000) MV EF SLOPE: 87 mm/s (70 - 150) EPSS: 0.5 cm MV E Federico: 0.46 m/s MV DecT: 219 ms MV A Federico: 0.63 m/s MV E/A Ratio: 0.74 FINDINGS -------- Sinus rhythm. This was a technically adequate study. Left ventricular wall thickness is normal. Overall left ventricular systolic function is normal with, an EF between 55 - 60 %. The right ventricle is mildly enlarged. Normal LA size by volume 22+/-6 ml/m2. The right atrium is normal in size. Aortic valve is trileaflet and is mildly thickened. Mild mitral annular calcification present. There is trace mitral regurgitation. Trace tricuspid regurgitation present. The pulmonic valve was not well visualized. The aortic root size is normal. Normal inferior vena cava with normal inspiratory collapse consistent with estimated right atrial pressure of 5 mmHg. Echo free space may represent effusion or a pericardial fat pad. CONCLUSIONS -------- 1. Sinus rhythm. 2. Trace tricuspid regurgitation present. 3. The pulmonic valve was not well visualized. 4. The aortic root size is normal. 5. Echo free space may represent effusion or a pericardial fat pad. 6. This was a technically adequate study. 7. Left ventricular wall thickness is normal. 8. Overall left ventricular systolic function is normal with, an EF between 55 - 60 %. 9. The right ventricle is mildly enlarged. 10. Normal LA size by volume 22+/-6 ml/m2. 11. Aortic valve is trileaflet and is mildly thickened. 12. Mild mitral annular calcification present. 13. There is trace mitral regurgitation. RIB TRIM SEPARATOR: Lauro Downey RDCS
[2016-10-17 11:46] VITALS: PULSE 84
[2016-10-17 12:01] LABS: Glucose,Whole Blood 179 mg/dL (75-99)
[2016-10-17] MEDS: FOLIC ACID 1 MG TAB PO SCH (12:09)
[2016-10-17] MEDS: THIAMINE 100 MG TAB PO SCH (12:09)
[2016-10-17] MEDS: MULTIVITAMINS, THERA 1 EACH TAB PO SCH (12:09)
--- NOTE | 2016-10-17 12:24 | DS ---
DATE OF ADMISSION: 10/08/2016 DATE OF DISCHARGE: Patient is a 65-year-old admitted with acute hypoxic respiratory failure secondary to bilateral pleural effusion, minimal on the left side, significant on the right side. During his previous hospitalization, patient was treated for right upper lobe cavitary lesion with parapneumonic effusion and found to have loculated effusion during that time. Patient's cavitary lesion was evaluated during his previous hospitalization. At that time, patient underwent bronchoscopy. AFB cultures were negative and fungal elements were also negative. Patient may have anaerobic or gram negative infection. All the cultures were negative. Patient was empirically discharged on broad-spectrum antibiotics, I believe Augmentin. Patient came back within a day or two with increased pleural effusion. Patient underwent thoracocentesis again with removal of 1 L during this hospitalization without any significant clinical overall improvement. Cardiothoracic surgery was consulted. They did not recommend any surgical intervention considering his bad COPD and considering that non-improvement, Pulmonary is recommending transfer to high level facility for further evaluation and treatment by Pulmonary and Cardiothoracic Surgery. Dr. Ricci is recommending 10 more days of IV Zosyn concerning his complex history of cavitary lesion with the possibility of anaerobic infection. I did obtain echocardiogram yesterday to rule out congestive heart failure because of the bilateral nature of the pleural effusion, although very minimal effusion on the left side, which showed normal ejection fraction. No other significant abnormalities were appreciated. Patient already has a PICC line in place. Patient was seen and examined on the day of discharge. Vitals are stable. PHYSICAL EXAMINATION: VITAL SIGNS: Temperature 96.4, pulse of 69, respiratory rate of 16, blood pressure 102/65. Saturating at 97% on 4 L of oxygen by nasal cannula. GENERAL: The patient is a thin built gentleman. HEENT: Pupils are round and equally reacting to light. EOMI. No scleral icterus. No conjunctival pallor. Normocephalic, atraumatic. No pharyngeal erythema. No thyromegaly. CARDIOVASCULAR: S1 and S2 present. No murmurs, rubs, or gallops. LUNG EXAMINATION: ( ) breath sounds bilaterally. Crackles in the right lower lung bases anteriorly and posteriorly. No wheezing was appreciated. ABDOMEN: Soft, nontender, nondistended, normoactive bowel sounds. No palpable organomegaly. MUSCULOSKELETAL: No joint swelling or deformity. EXTREMITIES: No cyanosis, clubbing, or pedal edema. NEUROLOGICAL: Gross neurological examination did not reveal any focal deficits. SKIN: No rashes. LABORATORY DATA: No leukocytosis. Patient did not have any fever during this hospitalization either. No evidence of overt sepsis during his hospitalization, but patient was septic during his last hospitalization. ASSESSMENT AND PLAN: 1. Right upper lobe pneumonia with cavitary lesion. Possibility of anaerobic infection, anaerobic pneumonia with parapneumonic effusion with loculated parapneumonic effusion and chronic obstructive pulmonary disease without any significant exacerbation. 2. Alcohol abuse history. 3. Acute on chronic hypercapnic respiratory failure secondary to chronic obstructive pulmonary disease as well as acute hypoxic respiratory failure secondary to pleural effusion. Patient is being transferred to high level facility for further care and patient is presently on the following medications: Pulmicort. Folic acid, formoterol, hydrocodone acetaminophen, subcu heparin, ipratropium albuterol inhalational, levofloxacin 750 q.24 hours, piperacillin tazobactam 3.375. His kidney functions are within normal limits. Thiamine supplementation and the Solu-Medrol 40 q.12. Total time spent on discharge is greater than 35 minutes.
--- NOTE | 2016-10-17 14:26 | PN ---
DATE OF SERVICE: 10/17/2016 The patient is a 65-year-old male who is seen sitting and lying in bed with his hat brim kind of covering his eyes trying to get some sleep. Patient is afebrile, hemodynamically stable, feeling a little a bit better today. He is in no acute distress. On physical exam, vital signs, temp is 96.4, heart rate 78, respiratory rate 16, blood pressure is 102/65, oxygen saturation 97% on room air. HEENT: Head is normocephalic, atraumatic. NECK: Supple. Trachea is midline. LUNGS: Coarse breath sounds, decreased at the bilateral bases. HEART: S1 and S2 are heard. Not tachycardic. ABDOMEN: Soft. Bowel sounds are heard. EXTREMITIES: With no edema. NEUROLOGIC: The patient is awake, alert, oriented. LABS: White count is 9.8, hemoglobin is 14.4, hematocrit 44.6 with 250,000 platelets. Sodium is 135, potassium 4.2, chloride 98, CO2 is 23. Anion gap is 14. BUN is 16, creatinine 0.51, glucose is 167. Calcium is 9.4. No new imaging to review. IMPRESSION: 1. Acute on chronic hypoxic respiratory failure. 2. Acute exacerbation of chronic obstructive pulmonary disease. 3. Aspiration pneumonia. 4. Right upper lobe cavitary lung lesion. 5. Right pleural effusion, status post thoracentesis. 6. Alcohol abuse. PLAN: Continue O2 to maintain saturations greater than or equal to 88%. Continue antibiotics per infectious disease. Continue bronchodilators and aerosolized steroids with GI and DVT prophylaxis. Continue flutter therapy, IV Solu-Medrol. PT and OT, possibility of transfer to a tertiary care center for possible intervention for this right upper lobe cavitary lesion. Will continue to follow the patient closely with you, making further changes as necessary.
== END 2016-10-17 15:19 | disposition short-term general hospital (02) | DRG 177 ==
LOC: EC 14:49 → 4MS4W 17:48
PROVIDERS: ADMIT Hospitalist; ATTEND Hospitalist
PROC: 0W993ZX Drainage of Right Pleural Cavity, Percutaneous Approach, Diagnostic (ICD-10-PCS; 2016-10-10)
PROC: 02HV33Z Insertion of Infusion Device into Superior Vena Cava, Percutaneous Approach (ICD-10-PCS; principal; 2016-10-14 10:20)
PROC: B548ZZA Ultrasonography of Superior Vena Cava, Guidance (ICD-10-PCS; 2016-10-14 10:20)
PROC: 0W993ZZ Drainage of Right Pleural Cavity, Percutaneous Approach (ICD-10-PCS; 2016-10-15)
DX: J69.0 Pneumonitis due to inhalation of food and vomit (principal); J96.21 Acute and chronic respiratory failure with hypoxia; J96.22 Acute and chronic respiratory failure with hypercapnia; J44.1 Chronic obstructive pulmonary disease with (acute) exacerbation; E44.0 Moderate protein-calorie malnutrition; Z68.1 Body mass index [BMI] 19.9 or less, adult; E87.1 Hypo-osmolality and hyponatremia; J98.4 Other disorders of lung; F17.210 Nicotine dependence, cigarettes, uncomplicated; Y95 Nosocomial condition; R26.9 Unspecified abnormalities of gait and mobility; F10.21 Alcohol dependence, in remission; Z99.81 Dependence on supplemental oxygen; Z87.01 Personal history of pneumonia (recurrent); Z79.52 Long term (current) use of systemic steroids; Z79.899 Other long term (current) drug therapy
CPT/HCPCS: 32555; 36415; 36569; 71010; 71020; 71250; 76604; 76937; 77001; 80048; 80053; 80306; 81003; 82550; 82553; 83735; 83880; 84484; 85025; 85027; 85049; 85610; 85730; 87040; 87070; 87075; 87205; 87502; 88108; 88305; 89050; 93005; 93306; 94640; 94760; 96365; 99291